=== PATIENT | male | born 1950 | race Caucasian/White ===

== ENCOUNTER → 2020-01-27 08:05 | Outpatient (BNVA) | payer MEDICARE, SELFPAY | PROVIDERS: PCP Nurse Practitioner Family; Referring Provider Nurse Practitioner Family; Visit Provider Anesthesiology Pain Medicine | DX: M47.812 Spondylosis without myelopathy or radiculopathy, cervical region (principal); M54.9 Dorsalgia, unspecified; M79.18 Myalgia, other site; Z79.891 Long term (current) use of opiate analgesic | CPT/HCPCS: 20553; 72040; 99204; J1030; J3490 ==

== ENCOUNTER 2020-01-27 10:56 | Outpatient (CLI) | payer MEDICARE, SELFPAY ==
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
== END 2020-01-27 10:57 | disposition home or self-care (01) ==
LOC: RADWPI 10:59
PROVIDERS: PCP Nurse Practitioner Family; Visit Provider Anesthesiology Pain Medicine
DX: M47.812 Spondylosis without myelopathy or radiculopathy, cervical region (principal)
CPT/HCPCS: 72040

== ENCOUNTER 2020-01-29 04:55 | Emergency (ER) | payer MEDICARE, SELFPAY ==
[2020-01-29 05:07] VITALS: BP 131/84; PULSE 84; RESP 16; TEMP 36.2; O2SAT 99; BMI 21.1
--- NOTE | 2020-01-29 05:34 | CTR_ITS ---
PROCEDURE INFORMATION: Exam: CT Head Without Contrast Exam date and time: 01/29/2020 5:37 AM Age: 69 years old Clinical indication: Patient HX: C/O dizziness x 3 days after having trigger point injections in neck. ; Additional info: Dizzy TECHNIQUE: Imaging protocol: Computed tomography of the head without contrast. Radiation optimization: All CT scans at this facility use at least one of these dose optimization techniques: automated exposure control; mA and/or kV adjustment per patient size (includes targeted exams where dose is matched to clinical indication); or iterative reconstruction. COMPARISON: No relevant prior studies available. FINDINGS: Brain: There is mild diffuse cerebral atrophy. Patchy areas of hypoattenuation are seen in the deep white matter of the cerebral hemispheres bilaterally compatible with deep white matter microvascular disease. Total DLP: 827.21 mGy-cm Ventricles: Normal. No ventriculomegaly. Bones/joints: Unremarkable. No acute fracture. Sinuses: Visualized sinuses are unremarkable. No fluid levels. Mastoid air cells: Visualized mastoid air cells are well aerated. Soft tissues: Unremarkable. CT/CT head wo con* [id number] IMPRESSION: There are no acute intracranial findings. Radiation Dose CTDIVOL = (mGy): DLP = 827.21 (mGy-cm)
--- NOTE | 2020-01-29 05:35 | ECG_ITS ---
Measurements Intervals [place] Rate: 77 P: 84 [place]: 172 QRS: 79 QRSD: 108 T: 23 QT: 377 QTc: 429 SINUS RHYTHM NONSPECIFIC T-WAVE ABNORMALITY No previous ECG available for comparison Electronically Signed On 01-29-2020 21:00:22 CDT by Berto Martins M.D. [id number] f
--- NOTE | 2020-01-29 05:48 | ED_ITS ---
HPI - Dizziness General: Chief Complaint: Dizziness Stated Complaint: dizziness Time Seen by Provider: 01/29/20 05:18 History of Present Illness: HPI Narrative: 69-year-old gentleman with a history of coronary disease. He presents with dizziness. He states that he got trigger point injections 2 days ago at the pain clinic, and has been dizzy on and off since then. It seemed to worsen yesterday and this morning he was quite dizzy, so much so that he stumbled a bit around the house. He states that the vertiginous type dizziness with room spinning type sensation. He does give a history of feeling lightheaded. He denies any chest pain or shortness of breath. He also states that he ran out of his tramadol on , and does not want to go back on it. MD elicited complaint: dizziness, lightheadedness and near syncope Onset (ago): day(s) (3) Timing: sudden onset Severity: moderate Description: room spinning , lightheadedness and off-balance Context: change in medication History of similar symptoms: No Relieving factors: nothing Associated symptoms: Denies change in hearing, chest pain, chills or palpitations Associated neuro symptoms: Deny confusion, difficulty speaking, dysphagia, diplopia, extremity weakness, facial numbness, facial weakness, numbness in extremities or visual changes Review of Systems Const: Denies: fever(s) or chills Eyes: Denies: change in vision ENMT: Denies: swelling of lips/tongue, change in hearing or epistaxis Card: Denies: chest pain, palpitations or irregular heart rhythm Resp: Denies: dyspnea, productive cough, non-productive cough or wheezing GI: Denies: dysphagia : Denies: difficulty urinating or dysuria Musc: Denies: neck pain, back pain or joint redness Skin/Breast: Denies: rash Neuro: Denies: numbness in extremities or confusion Psych: Denies: anxiety PFSH ED PFSH: Medical History (Updated 01/27/20 @ 09:05 by Kevin Botello MD) CAD (coronary artery disease) 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 Erectile dysfunction Non-ST elevation [place] (NSTEMI) Surgical History Hx of left inguinal hernia repair Family History Mother Dementia Hypertension CAD (coronary artery disease) Denies family history of Diabetes Clotting disorder Hyperlipidemia Psychiatric illness Chronic kidney disease (CKD) Suicide Anesthesia complication Bleeding disorder Family history of premature coronary artery disease Lung disease Cancer Stroke Social History Smoking and tobacco status: former smoker Alcohol intake: never Physical Exam Const: GENERAL APPEARANCE: well developed ORIENTATION/CONSCIOUSNESS: Yes oriented to person, Yes oriented to place and Yes oriented to time HENMT: COMMON NORMALS: normocephalic, external ears normal and Normal external nose present HEAD & SCALP: normocephalic FACE & SINUS: normal facial exam NOSE: Normal external nose present and No nasal discharge present EXTERNAL EAR: Yes external ears normal MOUTH: tongue normal THROAT: posterior oropharynx normal; no peritonsillar mass Eye: COMMON NORMALS: Equal, round and reactive pupils present, EOMs intact bilaterally and conjunctivae normal EYELID: eyelids normal CONJUNCTIVA: Yes conjunctivae normal PUPIL: Yes Equal, round and reactive pupils present Neck/C-Spine: COMMON NORMALS: no meningeal signs GENERAL: No tracheal deviation Chest: COMMONS NORMALS: normal inspection of the chest CHEST: No tenderness Resp: COMMON NORMALS: clear to auscultation bilaterally EFFORT & INSPECTION: No tachypneic, No respiratory distress, No retractions, No uses accessory muscles and No tracheal deviation AUSCULTATION: clear to auscultation bilaterally, no rhonchi, no wheezes and lung sounds not diminished Cardio: COMMON NORMALS: regular rate and regular rhythm RATE: regular rate RHYTHM: regular rhythm HEART SOUNDS: no murmurs PERIPHERAL PULSES: radial pulses present GI: INSPECTION: No abdominal distension AUSCULTATION: No Hyperactive bowel sounds present and No Hypoactive bowel sounds present PALPATION: No Guarding due to palpation present (GI) and No Rigid due to palpation PERCUSSION: no dullness to percussion and no tympanic to percussion Neuro: SENSORIUM/ORIENTATION: Yes oriented to person, Yes oriented to place and Yes oriented to time MENINGEAL SIGNS: Yes no meningeal signs CRANIAL NERVES: Yes CN normal except as noted COORDINATION/BALANCE: lczryx-zr-blae test normal and igyp-lf-fubb test normal SPEECH: speech normal SENSORY EXAM: Yes extremities MOTOR EXAM: 5/5 motor strength present throughout and Pronator motor function not present COORDINATION: nyjynz-ef-nnpf test normal and pvzv-tk-egyt test normal Psych: COMMON NORMALS: mental status grossly normal Skin: COMMON NORMALS: no rashes or lesions noted GENERAL SKIN EXAM: no rashes or lesions noted Course Vital Signs: Vital signs: Vital Signs Temperature 97.1 F L 01/29/20 05:07 Pulse Rate 84 01/29/20 05:07 Respiratory Rate 16 01/29/20 05:07 Blood Pressure 131/84 01/29/20 05:07 Pulse Oximetry 99 01/29/20 05:07 MDM - Dizziness MDM Narrative: Medical decision making narrative: 69-year-old gentleman with a history of coronary disease. He is dizzy. Vertiginous type of dizziness. CT of the head is scheduled. Labs are pending. His EKG shows a sinus rhythm with a normal axis and no real acute ST changes. He never had chest pain. Orthostatics are pending as well. Were giving him some fluid. He has multiple reasons for dizziness including the trigger point injections a couple of days ago and coming off the tramadol he will be checked out to Dr. Mayo at shift change to follow-up on labs and imaging. Discharge Plan Discharge Prescriptions: No Action aspirin [Adult Aspirin Regimen] 81 mg tablet,delayed release (DR/EC) 81 mg PO DAILY RF: 0 nitroglycerin [Nitrostat] 0.4 mg tablet, sublingual 0.4 mg SUBLINGUAL Q5M PRNRF: 0 levothyroxine 100 mcg capsule 100 mcg PO DAILY RF: 0 ibuprofen 200 mg tablet 200 mg PO Q6H PRNRF: 0 isosorbide mononitrate 10 mg tablet 10 mg PO BID RF: 0 tamsulosin 0.4 mg capsule 0.4 mg PO DAILY RF: 0 simvastatin 80 mg tablet 80 mg PO DAILY RF: 0 tramadol 50 mg tablet 50 mg PO BID PRNRF: 0 tizanidine 4 mg tablet 4 mg PO BID PRN (Reason: muscle spasticity) Qty: 60 RF: 0 clopidogrel [Plavix] 75 mg tablet 75 mg PO QDAY 90 Days Qty: 90 RF: 3 metoprolol tartrate 25 mg tablet 12.5 mg PO BID 90 Days Qty: 90 RF: 3 Coding Level of Care Code ED 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
[2020-01-29] MEDS: sodium chloride 0.9% 1,000 ML 999 ML IV (05:50)
[2020-01-29 05:55] VITALS: BP 120/78; BP 127/75; BP 129/73; PULSE 72; PULSE 77; PULSE 79
[2020-01-29] MEDS: ondansetron 2 mg/ML SDV 2 mL 4 MG IVP (06:00)
[2020-01-29 06:17] LABS: Add Urine Microscopic? NO
[2020-01-29 06:22] LABS: Basophils # 0.1 10^3/uL (0.0-0.1); Basophils % 0.7 %; Eosinophils # 0.2 10^3/uL (0.0-0.8); Eosinophils % 2.7 %; Hematocrit 46.4 % (42.0-52.0); Hemoglobin 14.9 g/dL (11.7-16.6); Lymphocytes # 2.5 10^3/uL (0.8-4.8); Lymphocytes % 34.3 %; Mean Corpuscular HGB Conc 32.1 g/dL (30.0-36.0); Mean Corpuscular Hemoglobin 29.7 pg (28.0-34.0); Mean Corpuscular Volume 92.6 fL (80-94); Monocytes # 0.6 10^3/uL (0.2-0.9); Monocytes % 8.8 %; Neutrophils # 3.8 10^3/uL (1.8-7.7); Neutrophils % 53.4 %; Nucleated Red Blood Cells % 0 %; Platelet Count 187 10^3/cmm (130-400); Red Blood Count 5.01 10^6/uL (4.1-5.3); White Blood Count 7.1 10^3/uL (4.0-10.0)
[2020-01-29 06:24] LABS: Blood Urine Neg (Negative); Glucose Urine UA Norm (Normal); Ketones Urine Negative (Negative); Nitrate Urine Negative (Negative); Protein Urine Neg (Negative); Urine Appearance Clear (CLEAR); Urine Color Yellow (Yellow); pH Urine 6.5 (5-7)
[2020-01-29 06:25] LABS: Bilirubin Urine Neg (NEGATIVE); Leukocyte Esterase Urine Negative (Negative); Urobilinogen Urine Norm (Negative)
[2020-01-29 06:29] LABS: INR 0.95 (0.8-1.2); Partial Thromboplastin Time 30.9 SECONDS (23.9-36.7)
[2020-01-29 06:34] LABS: Alanine Aminotransferase 21 U/L (0-41); Albumin Level 4.9 g/dL (3.5-5.2); Alkaline Phosphatase 136 IU/L (40-130); Anion Gap 15.5 (5-19); Aspartate Amino Transferase 21 U/L (0-40); Blood Urea Nitrogen 12 mg/dL (8-23); Calcium 10.2 mg/dL (8.5-10.5); Carbon Dioxide 28 mmol/L (22-29); Chloride 103 mmol/L (98-107); Creatine Phosphokinase 71 U/L (39-308); Creatinine Clr Calc Pharmacy 96.2125; Globulin 2.9 g/dL (1.3-4.6); Glomerular Filtration Rate 112.1 mL/min (90-130); Glucose 89 mg/dL (65-115); Magnesium 2.6 mg/dL (1.7-2.3); Osmolality Calculated 290 mOsm/kg (285-295); Potassium 4.5 mmol/L (3.5-5.1); Sodium 142 mmol/L (136-145); Total Protein 7.8 g/dL (6.6-8.7)
[2020-01-29 06:36] LABS: Troponin(5th) Baseline 7 ng/L (0-15)
--- NOTE | 2020-01-29 06:55 | PC.NURSE ---
Report received from [facility] at this time.
[2020-01-29 07:01] VITALS: BP 126/73; PULSE 75; RESP 18; O2SAT 98
--- NOTE | 2020-01-29 07:01 | PC.NURSE ---
Patient called out using his call light. Rounded on patient. Patient request a cup of black coffee. Physician notified at this time.
--- NOTE | 2020-01-29 07:13 | PC.NURSE ---
Per physician patient is okay to have a drink. Glass of black coffee brought to the patient at this time. Patient has no other needs. Will continue to monitor patient.
--- NOTE | 2020-01-29 07:35 | ECG_ITS ---
Measurements Intervals [place] Rate: 72 P: 79 [place]: 166 QRS: 74 QRSD: 100 T: 22 QT: 400 QTc: 439 SINUS RHYTHM POSSIBLE INFERIOR MYOCARDIAL INFARCTION [30 ms Q WAVE IN II/aVF], PROBABLY OLD [place] WITH POSTERIOR EXTENSION [PROMINENT R WAVE IN V1 No previous ECG available for comparison Electronically Signed On 01-29-2020 21:04:29 CDT by Berto Martins M.D. [id number] f
[2020-01-29 08:02] VITALS: BP 113/77; PULSE 72; RESP 16; O2SAT 99
[2020-01-29 08:17] LABS: Troponin 5 2HR 6.52 ng/L (0-15)
[2020-01-29 08:26] LABS: Troponin 5 2HR Delta -0.48 ABS# (0-10)
[2020-01-29 08:42] VITALS: BP 133/79; PULSE 84; RESP 16; O2SAT 98
== END 2020-01-29 08:42 | disposition home or self-care (01) ==
PROVIDERS: Emergency Provider Emergency Medicine; PCP Nurse Practitioner Family
DX: R42 Dizziness and giddiness (principal); Z79.02 Long term (current) use of antithrombotics/antiplatelets; Z79.82 Long term (current) use of aspirin; I25.10 Atherosclerotic heart disease of native coronary artery without angina pectoris; E78.5 Hyperlipidemia, unspecified; I25.2 Old myocardial infarction; Z87.891 Personal history of nicotine dependence; R55 Syncope and collapse
CPT/HCPCS: 12345; 36415; 70450; 80053; 81003; 82550; 83735; 84100; 84484; 85025; 85610; 85730; 93005; 96360; 96361; 96374; 96375; 99284; J2405; J7030

== ENCOUNTER 2020-02-16 14:05 | Outpatient (RCR) | payer MEDICARE, SELFPAY | END 2020-03-16 23:59 | disposition home or self-care (01) | LOC: SPT 14:05 | PROVIDERS: PCP Nurse Practitioner Family; Referring Provider Nurse Practitioner Family; Visit Provider Nurse Practitioner Family | DX: M54.6 Pain in thoracic spine (principal) | CPT/HCPCS: 97110; 97161 ==

== ENCOUNTER 2020-04-14 22:22 | Emergency (ER) | payer MEDICARE, SELFPAY ==
[2020-04-14 22:25] VITALS: BP 124/75; PULSE 76; RESP 17; TEMP 36.4; O2SAT 95; BMI 22.1
--- NOTE | 2020-04-14 22:40 | XR_ITS ---
WS: [id number] PORTABLE CHEST HISTORY: chest pain COMPARISON: 12/25/2018 Hyperinflated lungs with mild biapical pleural thickening. No pneumonia. Normal vasculature. No pleur al effusion or pneumothorax. Cardiac size: Normal. Mediastinum/Aorta: Normal mediastinum. No osseous abnormality seen. XR/XR chest 1V portable [id number] IMPRESSION: Mild chronic emphysema with no pneumonia.
--- NOTE | 2020-04-14 22:40 | ECG_ITS ---
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 Measurements Intervals [place] Rate: 75 P: 67 [place]: 160 QRS: 63 QRSD: 109 T: 33 QT: 401 QTc: 449 Interpretive Statements SINUS RHYTHM POSSIBLE RIGHT VENTRICULAR CONDUCTION DELAY [RSR (QR) IN V1/V2] Compared to ECG 01/29/2020 08:00:37 Myocardial infarct finding no longer present Electronically Signed On 04-15-2020 23:59:23 CDT by Berto Martins M.D. [email or web address]/NU/[id number] f
--- NOTE | 2020-04-14 22:51 | ED_ITS ---
HPI - Chest Pain General: Chief Complaint: Chest Pain Stated Complaint: chest pain/ tingling tightness r arm Time Seen by Provider: 04/14/20 22:40 Source: patient Mode of arrival: ambulatory Limitations: no limitations History of Present Illness: HPI narrative: Patient comes in today with chest pain that started around 8:00 this evening. Patient does have a history of an [place] in April 2019. Patient reports taking 1 nitro with improvement in pain but continues to have some left arm tightness and discomfort. Patient did not take any aspirin. Review of Systems General: Reports: 10 or more systems reviewed and unremarkable except in HPI and below Card: Reports: chest pain [facility] ED PFSH: Medical History (Updated 04/15/20 @ 01:16 by MAYTE Dubose) CAD (coronary artery disease) 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 Erectile dysfunction Non-ST elevation [place] (NSTEMI) Surgical History Hx of left inguinal hernia repair Family History Mother Dementia Hypertension CAD (coronary artery disease) Denies family history of Diabetes Clotting disorder Hyperlipidemia Psychiatric illness Chronic kidney disease (CKD) Suicide Anesthesia complication Bleeding disorder Family history of premature coronary artery disease Lung disease Cancer Stroke Social History Smoking and tobacco status: former smoker Alcohol intake: never Physical Exam Const: COMMON NORMALS: no acute distress and patient oriented x3 GENERAL APPEARANCE: cooperative HENMT: COMMON NORMALS: normocephalic and Normal external nose present HEAD & SCALP: normal to inspection and normocephalic NOSE: Normal external nose present MOUTH: Normal oral and palatal mucosa present Eye: GENERAL EYE: appearance normal, both eyes and all related structures Neck/C-Spine: COMMON NORMALS: full ROM Chest: COMMONS NORMALS: normal inspection of the chest Resp: COMMON NORMALS: normal respiratory effort EFFORT & INSPECTION: Yes able to speak in complete sentences Cardio: COMMON NORMALS: regular rate and regular rhythm RATE: regular rate RHYTHM: regular rhythm GI: COMMON NORMALS: non-tender Back/Pelvis: COMMON NORMALS: thoracic and lumbar spine normal to inspection Extremity: COMMON NORMALS: normal to inspection Neuro: COMMON NORMALS: patient oriented x3 and moves all extremities Psych: COMMON NORMALS: mental status grossly normal and cooperative Skin: COMMON NORMALS: no rashes or lesions noted GENERAL SKIN EXAM: no rashes or lesions noted Course ED course: 2345, troponin negative at this time. waiting on second result. HEART score 6, wjw 0020, patient denies further chest pain. wjw Vital Signs: Vital signs: Vital Signs Temperature 97.5 F L 04/14/20 22:25 Pulse Rate 76 04/14/20 22:25 Respiratory Rate 18 04/14/20 23:19 Blood Pressure 131/64 04/15/20 01:12 Pulse Oximetry 95 04/14/20 22:25 MDM - Chest Pain MDM Narrative: Medical decision making narrative: Patient reports an episode of chest discomfort in which he took nitro with relief. Exam notes respirations are even lungs are clear to auscultation. Skin is warm and dry. Vital signs are normal differential diagnosis includes ACS, stable angina, atypical chest pain. Laboratory values were normal. Troponin did not show change after 2 hours. EKG showed no changes after 2 hours. Chest x-ray with emphysema. Reviewed exam with patient with recommendations for treatment and follow-up. Patient reported understanding and agreed to plan and felt comfortable going home. Lab Data: Labs: Lab Results 04/14/20 04/14/20 04/14/20 Range/Units 22:43 22:43 22:43 WBC 6.0 (4.0-10.0) 10^3/ uL RBC 4.65 (4.1-5.3) 10^6/u L Hgb 13.9 (11.7-16.6) g/dL Hct 43.4 (42.0-52.0) % MCV 93.3 (80-94) fL MCH 29.9 (28.0-34.0) pg MCHC 32.0 (30.0-36.0) g/dL RDW 13.4 (12.1-15.1) % Plt Count 204 (130-400) 10^3/c mm MPV 10.3 (7.4-10.4) fL Neut % (Auto) 42.1 % Lymph % (Auto) 41.1 % [place] % (Auto) 9.7 % Eos % (Auto) 5.7 % Baso % (Auto) 1.2 % Neut # (Auto) 2.51 (1.8-7.7) 10^3/u L Lymph # (Auto) 2.5 (0.8-4.8) 10^3/u L [place] # (Auto) 0.6 (0.2-0.9) 10^3/u L Eos # (Auto) 0.3 (0.0-0.8) 10^3/u L Baso # (Auto) 0.1 (0.0-0.1) 10^3/u L Nucleated RBC % (a uto) 0 % Nucleated RBCs # 0.0 /100WBC PT 12.30 (12.1-14.9) SECO NDS INR 0.89 (0.8-1.2) APTT 29.7 (23.9-36.7) SECO NDS Sodium 140 (136-145) mmol/L Potassium 4.0 (3.5-5.1) mmol/L Chloride 105 (98-107) mmol/L Carbon Dioxide 26 (22-29) mmol/L Anion Gap 13.0 (5-19) BUN 17 (8-23) mg/dL Creatinine 0.8 (0.7-1.2) mg/dL GFR Calculation 96.1 (90-130) mL/min Glucose 121 H (65-115) mg/dL Calculated Osmolal ity 288 (285-295) mOsm/k g Calcium 8.7 (8.5-10.5) mg/dL Total Bilirubin 1.0 (0.15-1.2) mg/dL AST 22 (0-40) U/L ALT 32 (0-41) U/L Alkaline Phosphata se 88 (40-130) IU/L Troponin T Baselin e (0-15) ng/L Troponin T 120 Min inupiat (0-15) ng/L NT-Pro-B Natriuret Pep 91 (0-125) pg/mL Total Protein 6.9 (6.6-8.7) g/dL Albumin 4.4 (3.5-5.2) g/dL Globulin 2.5 (1.3-4.6) g/dL Lipase 45 (13-60) U/L 04/14/20 04/15/20 Range/Units 22:43 00:49 WBC (4.0-10.0) 10^3/ uL RBC (4.1-5.3) 10^6/u L Hgb (11.7-16.6) g/dL Hct (42.0-52.0) % MCV (80-94) fL MCH (28.0-34.0) pg MCHC (30.0-36.0) g/dL RDW (12.1-15.1) % Plt Count (130-400) 10^3/c mm MPV (7.4-10.4) fL Neut % (Auto) % Lymph % (Auto) % [place] % (Auto) % Eos % (Auto) % Baso % (Auto) % Neut # (Auto) (1.8-7.7) 10^3/u L Lymph # (Auto) (0.8-4.8) 10^3/u L [place] # (Auto) (0.2-0.9) 10^3/u L Eos # (Auto) (0.0-0.8) 10^3/u L Baso # (Auto) (0.0-0.1) 10^3/u L Nucleated RBC % (a uto) % Nucleated RBCs # /100WBC PT (12.1-14.9) SECO NDS INR (0.8-1.2) APTT (23.9-36.7) SECO NDS Sodium (136-145) mmol/L Potassium (3.5-5.1) mmol/L Chloride (98-107) mmol/L Carbon Dioxide (22-29) mmol/L Anion Gap (5-19) BUN (8-23) mg/dL Creatinine (0.7-1.2) mg/dL GFR Calculation (90-130) mL/min Glucose (65-115) mg/dL Calculated Osmolal ity (285-295) mOsm/k g Calcium (8.5-10.5) mg/dL Total Bilirubin (0.15-1.2) mg/dL AST (0-40) U/L ALT (0-41) U/L Alkaline Phosphata se (40-130) IU/L Troponin T Baselin e 7 (0-15) ng/L Troponin T 120 Min in[place] 6.67 (0-15) ng/L NT-Pro-B Natriuret Pep (0-125) pg/mL Total Protein (6.6-8.7) g/dL Albumin (3.5-5.2) g/dL Globulin (1.3-4.6) g/dL Lipase (13-60) U/L EKG Data^: EKG 1: Attestation: I personally reviewed and interpreted this EKG as follows: (2235, sinus rhythm rate of 75 bpm regular, no obvious ST elevation, no ectopy noted.) Discharge Plan Discharge Patient Disposition: Home Clinical Impression: Stable angina Condition: Stable Prescriptions: No Action aspirin [Adult Aspirin Regimen] 81 mg tablet,delayed release (DR/EC) 81 mg PO DAILY RF: 0 nitroglycerin [Nitrostat] 0.4 mg tablet, sublingual 0.4 mg SUBLINGUAL Q5M PRNRF: 0 levothyroxine 100 mcg capsule 100 mcg PO DAILY RF: 0 ibuprofen 200 mg tablet 200 mg PO Q6H PRNRF: 0 isosorbide mononitrate 10 mg tablet 10 mg PO BID RF: 0 tamsulosin 0.4 mg capsule 0.4 mg PO DAILY RF: 0 simvastatin 80 mg tablet 80 mg PO DAILY RF: 0 tizanidine 4 mg tablet 4 mg PO BID PRN (Reason: muscle spasticity) Qty: 60 RF: 0 clopidogrel [Plavix] 75 mg tablet 75 mg PO QDAY 90 Days Qty: 90 RF: 3 metoprolol tartrate 25 mg tablet 12.5 mg PO BID 90 Days Qty: 90 RF: 3 meclizine 25 mg tablet 25 mg PO QID PRN (Reason: dizziness) Qty: 30 RF: 0 Discharge Orders: Discharge Order (Routine); Ordered 04/15/20 Ordered By: Lalito Wheat Referrals: Andres Dickens NP [Primary Care Provider] - Discharge Diet: Usual diet Discharge Activity: Increase activity as tolerated Patient Instructions: Angina (ED) Activity Restrictions/Additional Instructions: Continue with routine care. Use follow-up as needed for chest pain. Follow-up with primary care. Follow-up with machine quilt stuffer for further concerns. Return to the emergency department for new concerns. Coding Level of Care Code ED Access Specialist for Wilian Fwd Exam Comprehensive
[2020-04-14 23:01] LABS: Basophils # 0.1 10^3/uL (0.0-0.1); Basophils % 1.2 %; Eosinophils # 0.3 10^3/uL (0.0-0.8); Eosinophils % 5.7 %; Hematocrit 43.4 % (42.0-52.0); Hemoglobin 13.9 g/dL (11.7-16.6); Lymphocytes # 2.5 10^3/uL (0.8-4.8); Lymphocytes % 41.1 %; Mean Corpuscular Hemoglobin 29.9 pg (28.0-34.0); Mean Corpuscular Volume 93.3 fL (80-94); Mean Platelet Volume 10.3 fL (7.4-10.4); Monocytes # 0.6 10^3/uL (0.2-0.9); Monocytes % 9.7 %; Neutrophils # 2.51 10^3/uL (1.8-7.7); Neutrophils % 42.1 %; Nucleated Red Blood Cells % 0 %; Platelet Count 204 10^3/cmm (130-400); Red Blood Count 4.65 10^6/uL (4.1-5.3); Red Cell Distribution Width 13.4 % (12.1-15.1)
[2020-04-14 23:12] LABS: INR 0.89 (0.8-1.2)
[2020-04-14 23:13] LABS: Partial Thromboplastin Time 29.7 SECONDS (23.9-36.7)
[2020-04-14] MEDS: aspirin 81 mg Chew Tablet 324 MG PO (23:15)
[2020-04-14 23:19] VITALS: BP 131/60; RESP 18
[2020-04-14 23:20] LABS: Troponin(5th) Baseline 7 ng/L (0-15)
[2020-04-14 23:42] LABS: Alanine Aminotransferase 32 U/L (0-41); Albumin Level 4.4 g/dL (3.5-5.2); Alkaline Phosphatase 88 IU/L (40-130); Aspartate Amino Transferase 22 U/L (0-40); Blood Urea Nitrogen 17 mg/dL (8-23); Calcium 8.7 mg/dL (8.5-10.5); Carbon Dioxide 26 mmol/L (22-29); Chloride 105 mmol/L (98-107); Globulin 2.5 g/dL (1.3-4.6); Glomerular Filtration Rate 96.1 mL/min (90-130); Glucose 121 mg/dL (65-115); Lipase 45 U/L (13-60); NT Pro B Type Natriuretic Pept 91 pg/mL (0-125); Osmolality Calculated 288 mOsm/kg (285-295); Sodium 140 mmol/L (136-145); Total Protein 6.9 g/dL (6.6-8.7)
--- NOTE | 2020-04-15 00:40 | ECG_ITS ---
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 Measurements Intervals [place] Rate: 60 P: 64 [place]: 171 QRS: 56 QRSD: 102 T: 38 QT: 421 QTc: 423 Interpretive Statements SINUS RHYTHM POSSIBLE RIGHT VENTRICULAR CONDUCTION DELAY [RSR (QR) IN V1/V2] Compared to ECG 04/14/2020 22:32:37 No significant changes Electronically Signed On 04-16-2020 0:26:38 CDT by Berto Martins M.D. [email or web address]/store/[id number]
--- NOTE | 2020-04-15 01:08 | PC.NURSE ---
EKG done at 0110 and shown to ER doctor
[2020-04-15 01:10] LABS: Troponin 5 2HR 6.67 ng/L (0-15)
[2020-04-15 01:12] VITALS: BP 131/64
[2020-04-15 01:17] LABS: Troponin 5 2HR Delta -0.33 ABS# (0-10)
[2020-04-15 01:29] VITALS: BP 134/84
== END 2020-04-15 01:30 | disposition home or self-care (01) ==
PROVIDERS: Emergency Provider Nurse Practitioner Family; PCP Nurse Practitioner Family
DX: I25.118 Atherosclerotic heart disease of native coronary artery with other forms of angina pectoris (principal); Z79.82 Long term (current) use of aspirin; Z79.02 Long term (current) use of antithrombotics/antiplatelets; E78.5 Hyperlipidemia, unspecified; I25.2 Old myocardial infarction; Z87.891 Personal history of nicotine dependence
CPT/HCPCS: 12345; 36415; 71045; 80053; 83690; 83880; 84484; 85025; 85610; 85730; 93005; 99283; 99284

== ENCOUNTER 2020-04-17 16:04 | Emergency (ER) | payer MEDICARE, SELFPAY ==
[2020-04-17 16:07] VITALS: BP 151/93; PULSE 76; RESP 18; TEMP 36.6; O2SAT 97; BMI 22.3
--- NOTE | 2020-04-17 16:21 | ECG_ITS ---
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 Measurements Intervals [place] Rate: 73 P: 67 [place]: 165 QRS: 58 QRSD: 109 T: 28 QT: 396 QTc: 438 Interpretive Statements SINUS RHYTHM INCOMPLETE RIGHT BUNDLE BRANCH BLOCK NONSPECIFIC T-WAVE ABNORMALITY Compared to ECG 04/15/2020 01:08:47 Incomplete right bundle-branch block now present T-wave abnormality now present Electronically Signed On 04-17-2020 20:32:36 CDT by Cyn Ngo M.D. [email or web address] hospitalVendRx[facility].[employer]/store/NU/[id number] f
--- NOTE | 2020-04-17 17:36 | XRR_ITS ---
PROCEDURE INFORMATION: Exam: XR Chest, 1 View Exam date and time: 04/17/2020 6:26 PM Age: 69 years old Clinical indication: Type not specified; Patient HX: C/O chest pain x 3/4 days. Tingling down left arm TECHNIQUE: Imaging protocol: XR of the chest Views: 1 view. COMPARISON: CR XR chest 1V portable [id number] 04/14/2020 11:11 PM FINDINGS: Lungs: COPD, interstitial prominence, and chronic granulomatous disease. Pleural space: Biapical pleural thickening. Heart/Mediastinum: No cardiomegaly. Bones/joints: Osteopenia and degenerative change. When correlating with the previous study, no significant interval changes are present. XR/XR chest 1V portable [id number] IMPRESSION: Stable appearance of the chest, not significantly changed from 04/14/20.
--- NOTE | 2020-04-17 17:48 | W.ED.CHESTPA ---
HPI - Chest Pain General: Chief Complaint: Chest Pain Stated Complaint: cp Time Seen by Provider: 04/17/20 17:36 Source: patient Mode of arrival: ambulatory Limitations: no limitations History of Present Illness: HPI narrative: 69 yo male that states he has been having chest pain over the last 3-4 days. he states he also has tingling down his left arm. Patient states he is currently pain-free. Patient states he saw his PCP yesterday and is scheduled for a stress test. Patient denies any nausea or shortness of breath. MD complaint: chest pain Associated symptoms: Deny abdominal pain, dyspnea, fever(s), nausea or vomiting Review of Systems Const: Denies: fever(s), chills, body aches or change in appetite Eyes: Denies: blurry vision or eye discomfort ENMT: Denies: throat pain or dental pain Card: Reports: chest pain Resp: Denies: dyspnea GI: Denies: abdominal pain, nausea, vomiting or diarrhea : Denies: dysuria Musc: Denies: neck pain or back pain Skin/Breast: Denies: rash Neuro: Denies: headache(s) Psych: Denies: depression [place]/Lymph: Denies: easy bruising All/Imm: Denies: urticaria PFSH ED PFSH: Medical History CAD (coronary artery disease) 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 Erectile dysfunction Non-ST elevation [place] (NSTEMI) Surgical History Hx of left inguinal hernia repair Family History Mother Dementia Hypertension CAD (coronary artery disease) Denies family history of Diabetes Clotting disorder Hyperlipidemia Psychiatric illness Chronic kidney disease (CKD) Suicide Anesthesia complication Bleeding disorder Family history of premature coronary artery disease Lung disease Cancer Stroke Social History Smoking and tobacco status: former smoker Alcohol intake: never Substance/Drug Use: never Physical Exam Const: COMMON NORMALS: no acute distress, patient oriented x3 and healthy appearing HENMT: COMMON NORMALS: normocephalic and atraumatic HEAD & SCALP: normocephalic and atraumatic Eye: COMMON NORMALS: Equal, round and reactive pupils present and EOMs intact bilaterally PUPIL: Yes Equal, round and reactive pupils present Neck/C-Spine: COMMON NORMALS: full ROM and supple Chest: COMMONS NORMALS: normal inspection of the chest and normal palpation of entire chest wall Resp: COMMON NORMALS: normal respiratory effort, No retractions, No use of accessory muscles and clear to auscultation bilaterally AUSCULTATION: clear to auscultation bilaterally Cardio: COMMON NORMALS: regular rate, regular rhythm and No murmurs present (Cardio) RATE: regular rate RHYTHM: regular rhythm GI: COMMON NORMALS: Normal to inspection, nondistended, normoactive bowel sounds present, Soft to palpation, non-tender and no masses PALPATION: Yes Soft to palpation Extremity: COMMON NORMALS: normal to inspection and full ROM Neuro: COMMON NORMALS: patient oriented x3, moves all extremities and no focal motor deficits Psych: COMMON NORMALS: mental status grossly normal, Normal thought process present and cooperative THOUGHT PROCESS: Normal thought process present Skin: COMMON NORMALS: no rashes or lesions noted and no wounds GENERAL SKIN EXAM: no rashes or lesions noted Course Vital Signs: Vital signs: Vital Signs Temperature 97.8 F 04/17/20 16:07 Pulse Rate 76 04/17/20 16:07 Respiratory Rate 18 04/17/20 16:07 Blood Pressure 151/93 04/17/20 16:07 Pulse Oximetry 97 04/17/20 16:07 MDM - Chest Pain MDM Narrative: Medical decision making narrative: Patient presents here with chest pain is atypical in nature. Patient's initial repeat troponins here are negative along with EKGs. Patient's been pain-free here. He is to set up stress test with his PCP as planned. He is also follow-up with his bookmaker's clerk Dr. Hernandez and is to return if worsening. Patient understands and agrees to plan. Lab Data: Labs: Lab Results 04/17/20 04/17/20 04/17/20 Range/Units 17:48 17:48 17:48 WBC 6.0 (4.0-10.0) 10^3/ uL RBC 4.93 (4.1-5.3) 10^6/u L Hgb 14.7 (11.7-16.6) g/dL Hct 45.9 (42.0-52.0) % MCV 93.1 (80-94) fL MCH 29.8 (28.0-34.0) pg MCHC 32.0 (30.0-36.0) g/dL RDW 13.3 (12.1-15.1) % Plt Count 198 (130-400) 10^3/c mm MPV 10.2 (7.4-10.4) fL Neut % (Auto) 47.6 % Lymph % (Auto) 38.2 % [place] % (Auto) 9.5 % Eos % (Auto) 3.7 % Baso % (Auto) 0.8 % Neut # (Auto) 2.87 (1.8-7.7) 10^3/u L Lymph # (Auto) 2.3 (0.8-4.8) 10^3/u L [place] # (Auto) 0.6 (0.2-0.9) 10^3/u L Eos # (Auto) 0.2 (0.0-0.8) 10^3/u L Baso # (Auto) 0.1 (0.0-0.1) 10^3/u L Nucleated RBC % (a uto) 0 % Nucleated RBCs # 0.0 /100WBC Sodium 141 (136-145) mmol/L Potassium 4.2 (3.5-5.1) mmol/L Chloride 106 (98-107) mmol/L Carbon Dioxide 26 (22-29) mmol/L Anion Gap 13.2 (5-19) BUN 11 (8-23) mg/dL Creatinine 0.9 (0.7-1.2) mg/dL GFR Calculation 83.9 L (90-130) mL/min Glucose 96 (65-115) mg/dL Calculated Osmolal ity 288 (285-295) mOsm/k g Calcium 9.6 (8.5-10.5) mg/dL Total Bilirubin 1.1 (0.15-1.2) mg/dL AST 25 (0-40) U/L ALT 32 (0-41) U/L Alkaline Phosphata se 105 (40-130) IU/L Troponin T Baselin e 6 (0-15) ng/L Troponin T 120 Min [place] (0-15) ng/L Delta Troponin T (0-10) ABS# Total Protein 7.6 (6.6-8.7) g/dL Albumin 4.6 (3.5-5.2) g/dL Globulin 3.0 (1.3-4.6) g/dL 04/17/20 Range/Units 19:40 WBC (4.0-10.0) 10^3/ uL RBC (4.1-5.3) 10^6/u L Hgb (11.7-16.6) g/dL Hct (42.0-52.0) % MCV (80-94) fL MCH (28.0-34.0) pg MCHC (30.0-36.0) g/dL RDW (12.1-15.1) % Plt Count (130-400) 10^3/c mm MPV (7.4-10.4) fL Neut % (Auto) % Lymph % (Auto) % [place] % (Auto) % Eos % (Auto) % Baso % (Auto) % Neut # (Auto) (1.8-7.7) 10^3/u L Lymph # (Auto) (0.8-4.8) 10^3/u L [place] # (Auto) (0.2-0.9) 10^3/u L Eos # (Auto) (0.0-0.8) 10^3/u L Baso # (Auto) (0.0-0.1) 10^3/u L Nucleated RBC % (a uto) % Nucleated RBCs # /100WBC Sodium (136-145) mmol/L Potassium (3.5-5.1) mmol/L Chloride (98-107) mmol/L Carbon Dioxide (22-29) mmol/L Anion Gap (5-19) BUN (8-23) mg/dL Creatinine (0.7-1.2) mg/dL GFR Calculation (90-130) mL/min Glucose (65-115) mg/dL Calculated Osmolal ity (285-295) mOsm/k g Calcium (8.5-10.5) mg/dL Total Bilirubin (0.15-1.2) mg/dL AST (0-40) U/L ALT (0-41) U/L Alkaline Phosphata se (40-130) IU/L Troponin T Baselin e (0-15) ng/L Troponin T 120 Min [place] 6.00 (0-15) ng/L Delta Troponin T 0 (0-10) ABS# Total Protein (6.6-8.7) g/dL Albumin (3.5-5.2) g/dL Globulin (1.3-4.6) g/dL Imaging Data^: CXR: Attestation: I personally reviewed and interpreted this imaging study as follows: My impression: no acute abnormality EKG Data^: EKG 1: Attestation: I personally reviewed and interpreted this EKG as follows: EKG interpretation date: 04/17/20 EKG interpretation time: 16:17 Interpretation: nsr hr [address] or t wave abnormalities qrs 109 qtc 422 Discharge Plan Discharge Patient Disposition: Home Clinical Impression: Chest pain Qualifiers: Chest pain type: unspecified Qualified Code(s): R07.9 - Chest pain, unspecified Condition: Stable Prescriptions: No Action aspirin [Adult Aspirin Regimen] 81 mg tablet,delayed release (DR/EC) 81 mg PO DAILY RF: 0 nitroglycerin [Nitrostat] 0.4 mg tablet, sublingual 0.4 mg SUBLINGUAL Q5M PRN (Reason: CHEST PAINS) RF: 0 levothyroxine 100 mcg capsule 100 mcg PO DAILY RF: 0 ibuprofen 200 mg tablet 200 mg PO Q6H PRN (Reason: Pain) RF: 0 isosorbide mononitrate 10 mg tablet 10 mg PO BID RF: 0 tamsulosin 0.4 mg capsule 0.4 mg PO DAILY RF: 0 simvastatin 80 mg tablet 80 mg PO DAILY RF: 0 tizanidine 4 mg tablet 4 mg PO BID PRN (Reason: muscle spasticity) Qty: 60 RF: 0 clopidogrel [Plavix] 75 mg tablet 75 mg PO QDAY 90 Days Qty: 90 RF: 3 metoprolol tartrate 25 mg tablet 12.5 mg PO BID 90 Days Qty: 90 RF: 3 meclizine 25 mg tablet 25 mg PO QID PRN (Reason: dizziness) Qty: 30 RF: 0 Multi Vitamin 9 mg iron/15 mL Liquid 9 mg PO DAILY RF: 0 Discharge Orders: Discharge Order (Routine); Ordered 04/17/20 Ordered By: Esperanza Whitt Referrals: Andres Dickens NP [Primary Care Provider] - 1-3 days Discharge Diet: Advance as tolerated Discharge Activity: Resume usual activity Patient Instructions: Chest Pain (ED) Coding Level of Care Code ED Agricultural Real Estate Agent for Chg Fwd Exam Comprehensive
[2020-04-17 18:13] LABS: Troponin(5th) Baseline 6 ng/L (0-15)
[2020-04-17 18:18] LABS: Basophils # 0.1 10^3/uL (0.0-0.1); Basophils % 0.8 %; Eosinophils # 0.2 10^3/uL (0.0-0.8); Eosinophils % 3.7 %; Hematocrit 45.9 % (42.0-52.0); Hemoglobin 14.7 g/dL (11.7-16.6); Lymphocytes # 2.3 10^3/uL (0.8-4.8); Lymphocytes % 38.2 %; Mean Corpuscular Hemoglobin 29.8 pg (28.0-34.0); Mean Corpuscular Volume 93.1 fL (80-94); Mean Platelet Volume 10.2 fL (7.4-10.4); Monocytes # 0.6 10^3/uL (0.2-0.9); Monocytes % 9.5 %; Neutrophils # 2.87 10^3/uL (1.8-7.7); Neutrophils % 47.6 %; Nucleated Red Blood Cells % 0 %; Platelet Count 198 10^3/cmm (130-400); Red Blood Count 4.93 10^6/uL (4.1-5.3); Red Cell Distribution Width 13.3 % (12.1-15.1)
[2020-04-17 18:58] LABS: Alanine Aminotransferase 32 U/L (0-41); Albumin Level 4.6 g/dL (3.5-5.2); Alkaline Phosphatase 105 IU/L (40-130); Anion Gap 13.2 (5-19); Aspartate Amino Transferase 25 U/L (0-40); Blood Urea Nitrogen 11 mg/dL (8-23); Calcium 9.6 mg/dL (8.5-10.5); Carbon Dioxide 26 mmol/L (22-29); Chloride 106 mmol/L (98-107); Glomerular Filtration Rate 83.9 mL/min (90-130); Glucose 96 mg/dL (65-115); Osmolality Calculated 288 mOsm/kg (285-295); Potassium 4.2 mmol/L (3.5-5.1); Sodium 141 mmol/L (136-145); Total Bilirubin 1.1 mg/dL (0.15-1.2); Total Protein 7.6 g/dL (6.6-8.7)
[2020-04-17 20:03] LABS: Troponin 5 2HR Delta 0 ABS# (0-10)
[2020-04-17 20:20] VITALS: BP 127/82; PULSE 76; RESP 16; O2SAT 93
--- NOTE | 2020-04-18 10:56 | DCPLANNER ---
wildlife manager had message to schedule a follow up appointment for patient with [facility]. wildlife manager called [facility], spoke with Linda, a follow up appointment was scheduled for , April 26, 2020 at 9:45 with LEAD APPLICATION ARCHITECT, Lisa Bertrand. wildlife manager called patient and informed patient of the scheduled appointment. Patient stated that he would attend the appointment.
--- NOTE | 2020-05-18 11:26 | DCPLANNER ---
Patient had a follow up appointment scheduled for 04.26.20 with [facility] - patient did attend appointment.
== END 2020-04-17 20:24 | disposition home or self-care (01) ==
PROVIDERS: Family Medicine; Emergency Provider Emergency Medicine; PCP Nurse Practitioner Family
DX: R07.9 Chest pain, unspecified (principal); Z79.82 Long term (current) use of aspirin; Z79.02 Long term (current) use of antithrombotics/antiplatelets; I25.10 Atherosclerotic heart disease of native coronary artery without angina pectoris; E78.5 Hyperlipidemia, unspecified; I25.2 Old myocardial infarction; Z87.891 Personal history of nicotine dependence
CPT/HCPCS: 12345; 36415; 71045; 80053; 84484; 85025; 93005; 99281; 99284

== ENCOUNTER 2020-04-19 09:29 | Observation (INO) | payer MEDICARE, SELFPAY ==
[2020-04-19] VITALS (12 sets, daily range): BP systolic 100–128; BP diastolic 63–86; PULSE 67–82; RESP 14–19; TEMP 36.3–37; O2SAT 94–98; BMI 22.1
--- NOTE | 2020-04-19 09:38 | XR_ITS ---
WS: [id number] Portable AP upright chest, 04/19/2020 Clinical Data: chest pain Comparison: Portable chest, 04/17/2020 Findings: No nodules, masses or effusions are seen. The heart is normal. The pulmonary vascularity is not increased. No pneumonia or pneumothorax is seen. The aortic arch and descending aorta show mild tortuosity. There are monitor leads on the chest wall. XR/XR chest 1V portable [id number] Impression: Atherosclerosis.
--- NOTE | 2020-04-19 09:39 | ECG_ITS ---
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 Measurements Intervals [place] Rate: 78 P: 63 VT: 150 QRS: 42 QRSD: 116 T: -19 QT: 392 QTc: 449 Interpretive Statements SINUS RHYTHM Compared to ECG 04/17/2020 16:17:23 Incomplete right bundle-branch block no longer present T-wave abnormality no longer present Electronically Signed On 04-19-2020 16:06:49 CDT by Dayton Queen M.D. [id number] f
--- NOTE | 2020-04-19 09:39 | ED_ITS ---
HPI - Chest Pain General: Chief Complaint: Chest Pain Stated Complaint: CHEST PAIN Time Seen by Provider: 04/19/20 09:31 History of Present Illness: HPI narrative: 69-year-old male was in complaining of chest pain. This is his third visit in the last 7 days. He was here 5 days ago 3 days ago and today altered both other times she is complaining of chest pain. Chest pain began at rest he did take some nitro this morning he said he was not feeling well and his discomfort went into his left arm he took 3 nitro he did not really get much help at all called EMS the time he arrived here he said that the discomfort is completely gone EMS did give him aspirin and more nitro. He did have a stress test about a year ago which reported to him as normal. He is not noticed any pain with movement or with deep inspiration. 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 complaint: chest pain Pertinent past history: coronary artery disease Onset (ago): hour(s) Timing of current episode: episodic Prior episodes: Yes Onset: during rest Pain location: substernal and left chest Pain radiation: left arm Severity: moderate Quality: tightness Relieving factors: nitroglycerin and rest Exacerbating factors: nothing Associated symptoms: Deny abdominal pain, diaphoresis, dyspnea, fever(s), leg edema, nausea, palpitations, sense of impending doom, syncope, vomiting or other Treatment prior to arrival: none Review of Systems Const: Denies: fever(s) or diaphoresis ENMT: Denies: throat pain, ear or mastoid pain, nasal discharge or nasal congestion Card: Denies: palpitations or syncope Resp: Denies: dyspnea GI: Denies: abdominal pain, nausea or vomiting : Denies: flank pain, dysuria, urinary frequency or urinary urgency Skin/Breast: Denies: rash or pruritus PFSH ED PFSH: Medical History CAD (coronary artery disease) Cervical spondylosis 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 Erectile dysfunction Non-ST elevation [place] (NSTEMI) Stable angina Surgical History History of cardiac cath CAD s/p stent to LAD and RCA in 2019 Hx of left inguinal hernia repair Family History Mother Dementia Hypertension CAD (coronary artery disease) Denies family history of Diabetes Clotting disorder Hyperlipidemia Psychiatric illness Chronic kidney disease (CKD) Suicide Anesthesia complication Bleeding disorder Family history of premature coronary artery disease Lung disease Cancer Stroke Social History Smoking and tobacco status: former smoker Alcohol intake: never Marital status: Physical Exam Const: COMMON NORMALS: no acute distress GENERAL APPEARANCE: cooperative and comfortable ORIENTATION/CONSCIOUSNESS: Yes awake, Yes oriented to person, Yes oriented to place and Yes oriented to time HENMT: COMMON NORMALS: normocephalic, atraumatic and hearing grossly normal bilaterally HEAD & SCALP: normocephalic and atraumatic Eye: COMMON NORMALS: Equal, round and reactive pupils present, EOMs intact bilaterally, conjunctivae normal and no scleral icterus CONJUNCTIVA: Yes conjunctivae normal PUPIL: Yes Equal, round and reactive pupils present Neck/C-Spine: COMMON NORMALS: full ROM, no lymphadenopathy, supple and no JVD Lymph: LYMPHATIC: no lymphadenopathy noted and no lymphedema noted Resp: COMMON NORMALS: normal respiratory effort, No retractions, No use of accessory muscles and clear to auscultation bilaterally AUSCULTATION: clear to auscultation bilaterally Cardio: COMMON NORMALS: no JVD, regular rate, regular rhythm and No murmurs present (Cardio) RATE: regular rate RHYTHM: regular rhythm GI: COMMON NORMALS: Soft to palpation and No hepatosplenomegaly present AUSCULTATION: Yes normoactive bowel sounds PALPATION: Yes Soft to palpation, No Tenderness to palpation present (GI), No Guarding due to palpation present (GI) and Yes No hepatosplenomegaly present Extremity: COMMON NORMALS: normal to inspection, capillary refill normal, no clubbing, cyanosis or edema, no calf tenderness and no pedal edema Neuro: SENSORIUM/ORIENTATION: Yes oriented to person, Yes oriented to place and Yes oriented to time Skin: COMMON NORMALS: no rashes or lesions noted GENERAL SKIN EXAM: no rashes or lesions noted Course Vital Signs: Vital signs: Vital Signs Temperature 98.0 F 04/20/20 14:07 Pulse Rate 82 04/20/20 14:07 Respiratory Rate 14 04/20/20 14:07 Blood Pressure 127/76 04/20/20 14:07 Pulse Oximetry 96 04/20/20 14:07 MDM - Chest Pain MDM Narrative: Medical decision making narrative: Admit for evaluation for chest pain rule out [place] and possible stress testing. Patient did have relief of chest pain with nitro. Discussed with Dr. Small, he will admit. Lab Data: Labs: Lab Results 04/19/20 04/19/20 04/19/20 Range/Units 08:50 08:50 08:50 WBC 7.5 (4.0-10.0) 10^3/ uL RBC 5.03 (4.1-5.3) 10^6/u L Hgb 15.1 (11.7-16.6) g/dL Hct 47.0 (42.0-52.0) % MCV 93.4 (80-94) fL MCH 30.0 (28.0-34.0) pg MCHC 32.1 (30.0-36.0) g/dL RDW 13.5 (12.1-15.1) % Plt Count 208 (130-400) 10^3/c mm MPV 10.5 H (7.4-10.4) fL Neut % (Auto) 35.1 % Lymph % (Auto) 52.0 % [place] % (Auto) 8.6 % Eos % (Auto) 2.9 % Baso % (Auto) 1.1 % Neut # (Auto) 2.64 (1.8-7.7) 10^3/u L Lymph # (Auto) 3.9 (0.8-4.8) 10^3/u L [place] # (Auto) 0.7 (0.2-0.9) 10^3/u L Eos # (Auto) 0.2 (0.0-0.8) 10^3/u L Baso # (Auto) 0.1 (0.0-0.1) 10^3/u L Nucleated RBC % (a uto) 0 % Nucleated RBCs # 0.0 /100WBC Sodium 141 (136-145) mmol/L Potassium 4.3 (3.5-5.1) mmol/L Chloride 103 (98-107) mmol/L Carbon Dioxide 28 (22-29) mmol/L Anion Gap 14.3 (5-19) BUN 16 (8-23) mg/dL Creatinine 0.8 (0.7-1.2) mg/dL GFR Calculation 96.1 (90-130) mL/min Glucose 100 (65-115) mg/dL Calculated Osmolal ity 288 (285-295) mOsm/k g Calcium 9.3 (8.5-10.5) mg/dL Magnesium (1.7-2.3) mg/dL Total Bilirubin 1.0 (0.15-1.2) mg/dL AST 27 (0-40) U/L ALT 39 (0-41) U/L Alkaline Phosphata se 100 (40-130) IU/L Troponin T Baselin e 9 (0-15) ng/L Troponin T [address] [place] (0-15) ng/L Delta Troponin T (0-10) ABS# Total Protein 7.7 (6.6-8.7) g/dL Albumin 4.9 (3.5-5.2) g/dL Globulin 2.8 (1.3-4.6) g/dL 04/19/20 04/19/20 Range/Units 08:50 10:46 WBC (4.0-10.0) 10^3/ uL RBC (4.1-5.3) 10^6/u L Hgb (11.7-16.6) g/dL Hct (42.0-52.0) % MCV (80-94) fL MCH (28.0-34.0) pg MCHC (30.0-36.0) g/dL RDW (12.1-15.1) % Plt Count (130-400) 10^3/c mm MPV (7.4-10.4) fL Neut % (Auto) % Lymph % (Auto) % [place] % (Auto) % Eos % (Auto) % Baso % (Auto) % Neut # (Auto) (1.8-7.7) 10^3/u L Lymph # (Auto) (0.8-4.8) 10^3/u L [place] # (Auto) (0.2-0.9) 10^3/u L Eos # (Auto) (0.0-0.8) 10^3/u L Baso # (Auto) (0.0-0.1) 10^3/u L Nucleated RBC % (a uto) % Nucleated RBCs # /100WBC Sodium (136-145) mmol/L Potassium (3.5-5.1) mmol/L Chloride (98-107) mmol/L Carbon Dioxide (22-29) mmol/L Anion Gap (5-19) BUN (8-23) mg/dL Creatinine (0.7-1.2) mg/dL GFR Calculation (90-130) mL/min Glucose (65-115) mg/dL Calculated Osmolal ity (285-295) mOsm/k g Calcium (8.5-10.5) mg/dL Magnesium 2.5 H (1.7-2.3) mg/dL Total Bilirubin (0.15-1.2) mg/dL AST (0-40) U/L ALT (0-41) U/L Alkaline Phosphata se (40-130) IU/L Troponin T Baselin e (0-15) ng/L Troponin T 120 Min [place] 6.00 (0-15) ng/L Delta Troponin T -3.00 L (0-10) ABS# Total Protein (6.6-8.7) g/dL Albumin (3.5-5.2) g/dL Globulin (1.3-4.6) g/dL Discharge Plan Discharge Admit Provider: Ronal Small Condition: Stable Discharge Orders: Discharge Order (Routine); Ordered 04/20/20 Ordered By: Ronal Small Discharge Diet: Usual diet Discharge Activity: Resume usual activity Discharge Date/Time: 04/19/20 13:02 Coding Level of Care Code ED Elevator Repairer for Chg Fwd Exam Comprehensive
[2020-04-19 09:49] LABS: Basophils # 0.1 10^3/uL (0.0-0.1); Basophils % 1.1 %; Eosinophils # 0.2 10^3/uL (0.0-0.8); Eosinophils % 2.9 %; Hemoglobin 15.1 g/dL (11.7-16.6); Lymphocytes # 3.9 10^3/uL (0.8-4.8); Mean Corpuscular HGB Conc 32.1 g/dL (30.0-36.0); Mean Corpuscular Volume 93.4 fL (80-94); Mean Platelet Volume 10.5 fL (7.4-10.4); Monocytes # 0.7 10^3/uL (0.2-0.9); Monocytes % 8.6 %; Neutrophils # 2.64 10^3/uL (1.8-7.7); Neutrophils % 35.1 %; Nucleated Red Blood Cells % 0 %; Platelet Count 208 10^3/cmm (130-400); Red Blood Count 5.03 10^6/uL (4.1-5.3); Red Cell Distribution Width 13.5 % (12.1-15.1); White Blood Count 7.5 10^3/uL (4.0-10.0)
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
[2020-04-19 10:17] LABS: Alanine Aminotransferase 39 U/L (0-41); Albumin Level 4.9 g/dL (3.5-5.2); Alkaline Phosphatase 100 IU/L (40-130); Anion Gap 14.3 (5-19); Aspartate Amino Transferase 27 U/L (0-40); Blood Urea Nitrogen 16 mg/dL (8-23); Calcium 9.3 mg/dL (8.5-10.5); Carbon Dioxide 28 mmol/L (22-29); Chloride 103 mmol/L (98-107); Globulin 2.8 g/dL (1.3-4.6); Glomerular Filtration Rate 96.1 mL/min (90-130); Glucose 100 mg/dL (65-115); Osmolality Calculated 288 mOsm/kg (285-295); Potassium 4.3 mmol/L (3.5-5.1); Sodium 141 mmol/L (136-145); Total Protein 7.7 g/dL (6.6-8.7)
[2020-04-19 10:18] LABS: Troponin(5th) Baseline 9 ng/L (0-15)
--- NOTE | 2020-04-19 11:39 | ECG_ITS ---
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 Measurements Intervals [place] Rate: 63 P: 46 PA: 165 QRS: 48 QRSD: 104 T: 18 QT: 410 QTc: 423 Interpretive Statements SINUS RHYTHM POSSIBLE RIGHT VENTRICULAR CONDUCTION DELAY [RSR (QR) IN V1/V2] Compared to ECG 04/19/2020 09:34:42 No significant changes Electronically Signed On 04-19-2020 16:26:43 CDT by Dayton Queen M.D. [id number]
--- NOTE | 2020-04-19 12:42 | PM.HP ---
Providers/Chief Complaint Admitting Physician: Ronal Small MD Primary Care Provider: Andres Dickens NP Chief Complaint: CHEST PAIN History of Present Illness 69 year old male with past medical history of coronary artery disease status post stent in LAD and RCA in 2019, dyslipidemia, BPH, came in with chief complaint of left sided chest pain started this morning around 5 am. He describe the pain as pressure-like radiating to his left arm accompanied by tingling and numbness of the left arm and hand. Since the onset of the pain he has taken 5 sublingual nitro which partially relieves the pain.He deny any shortness of breath, pain with inspiration, or with movement, fever, cough, diaphoresis, nausea vomiting, headache, any sick contact. Review of Systems General: Reports: 10 or more systems reviewed and unremarkable except in HPI and below Narrative: 69-year-old currently not in acute distress being admitted for chest pain evaluation Const: Denies: fever(s), chills, body aches, change in appetite or diaphoresis Card: Denies: palpitations, edema, swelling of feet/ankles, dyspnea on exertion, orthopnea or leg pain with exertion Resp: Denies: dyspnea, productive cough, wheezing or pain on inspiration GI: Denies: abdominal pain, nausea, vomiting, diarrhea or constipation : Denies: flank pain or difficulty urinating Musc: Denies: back pain, extremity pain or extremity swelling Neuro: Denies: headache(s), difficulty walking or confusion Medications/Allergies Home Medications Medication Instructions Recorded Confirmed Last Taken Type aspirin 81 mg tablet,delayed 81 mg PO DAILY 09/28/19 04/19/20 04/19/20 History release ibuprofen 200 mg tablet 200 mg PO Q6H PRN 09/28/19 04/19/20 04/17/20 History levothyroxine 100 mcg capsule 100 mcg PO DAILY 09/28/19 04/19/20 04/19/20 History nitroglycerin 0.4 mg sublingual 0.4 mg SUBLINGUAL Q5M PRN 09/28/19 04/19/20 04/19/20 History tablet metoprolol tartrate 25 mg tablet 12.5 mg PO BID 90 Days #90 tab 10/12/19 04/19/20 04/19/20 Rx isosorbide mononitrate 10 mg tablet 10 mg PO BID 01/27/20 04/19/20 04/19/20 History simvastatin 80 mg tablet 80 mg PO DAILY 01/27/20 04/19/20 04/18/20 History tamsulosin 0.4 mg capsule 0.4 mg PO DAILY 01/27/20 04/19/20 04/18/20 History tizanidine 4 mg tablet 4 mg PO BID PRN #60 tab 01/27/20 04/19/20 Unknown Rx meclizine 25 mg PO QID PRN #30 tab 01/29/20 04/19/20 Unknown Rx plizgnkv-lty-exaiyqd fumarate 9 mg PO DAILY 04/17/20 04/19/20 04/19/20 History [Multi Vitamin] Plavix 75 mg PO DAILY 04/19/20 04/19/20 04/19/20 History Allergies Allergy/AdvReac Type Severity Reaction Status Date / Time oxycodone Allergy Unknown head Verified 04/17/20 18:18 spinning tramadol Allergy head Verified 04/17/20 18:18 spinning PFSH Acute PFSH: Medical History (Updated 04/19/20 @ 15:12 by Ronal Small MD) CAD (coronary artery disease) 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 Erectile dysfunction Non-ST elevation CA (NSTEMI) Surgical History History of cardiac cath CAD s/p stent to LAD and RCA in 2019 Hx of left inguinal hernia repair Family History (Updated 04/19/20 @ 13:08 by Ronal Small MD) Mother Dementia Hypertension CAD (coronary artery disease) Denies family history of Diabetes Clotting disorder Hyperlipidemia Psychiatric illness Chronic kidney disease (CKD) Suicide Anesthesia complication Bleeding disorder Family history of premature coronary artery disease Lung disease Cancer Stroke Social History (Updated 04/19/20 @ 13:09 by Ronal Small MD) Smoking and tobacco status: former smoker Alcohol intake: never Marital status: Vitals/I&O/Wt Last Vital Signs Temp 97.8 F 04/19/20 09:31 Pulse 68 04/19/20 11:21 Resp 14 04/19/20 11:21 BP 100/73 04/19/20 11:21 Pulse Ox 98 04/19/20 11:21 Weight last 48 hrs Weight 76.204 kg Physical Exam HENMT: COMMON NORMALS: normocephalic, atraumatic, hearing grossly normal bilaterally and external ears normal Eye: COMMON NORMALS: no scleral icterus GENERAL EYE: appearance normal, both eyes and all related structures Chest: COMMONS NORMALS: normal inspection of the chest and normal palpation of entire chest wall CHEST: Yes Symmetrical chest wall rise Resp: COMMON NORMALS: normal respiratory effort, No retractions, No use of accessory muscles and clear to auscultation bilaterally EFFORT & INSPECTION: Yes symmetric chest movement Cardio: COMMON NORMALS: regular rate, regular rhythm, S1 normal heart sound present, S2 normal heart sound present, No gallops present (Cardio), No murmurs present (Cardio), No rub (Cardio) and Peripheral pulses 2+ throughout GI: COMMON NORMALS: Normal to inspection, nondistended, normoactive bowel sounds present, Soft to palpation, non-tender, No hepatosplenomegaly present and no masses AUSCULTATION: Yes normoactive bowel sounds RECTAL EXAM: Yes deferred : COMMON NORMALS: Yes no CVA tenderness Extremity: COMMON NORMALS: no clubbing, cyanosis or edema and no pedal edema Neuro: COMMON NORMALS: patient oriented x3 Data : 04/19/20 08:50 04/19/20 08:50 Other Labs: Laboratory Tests 04/19/20 04/19/20 04/19/20 08:50 10:46 14:55 Troponin T Baseline 9 Troponin T 120 Minute 6.00 Troponin T Hi Sens 6Hr 7.33 CXR: Radiologist's impression: Findings: No nodules, masses or effusions are seen. The heart is normal. The pulmonary vascularity is not increased. No pneumonia or pneumothorax is seen. The aortic arch and descending aorta show mild tortuosity. There are monitor leads on the chest wall. Impression: Atherosclerosis. Other Imaging: Radiologist's impression: Lexiscan MIBI (12/27/2018) IMPRESSIONS Myocardial perfusion imaging is normal and low probability for obstructive coronary artery disease. EKG segment will be documented separately. TTE (08/28/2018) CONCLUSIONS 1-Normal left ventricular cavity size. Normal left ventricular systolic function. Left ventricular ejection fraction is estimated at 55 %. Grade I/IV diastolic dysfunction (abnormal relaxation filling pattern), normal to mildly elevated filling pressures. 2-There is no pericardial effusion. 3-No significant valve abnormalities. 4-Right atrial pressure is around 5 mm of mercury. 5-There are no prior echocardiogram studies to compare. Coronary angiogram (08/28/2018)\ Diagnostic Cath Status: Urgent Diagnostic Findings LM has 0% stenosis. CX has 0% stenosis. Proximal Left Anterior Descending Coronary Artery: Severe 75% stenosis,SONJA: 3 flow. Mid Left Anterior Descending Coronary Artery: Moderate 65% stenosis, SONJA: 3flow. Mid Right Coronary Artery: Severe 100% stenosis, SONJA: 0 flow.Coronary angiography shows right dominance. Interventional Findings Proximal Left Anterior Descending Coronary Artery: 75% stenosis treated with Drug Eluting Stent. 0% residual stenosis, SONJA: 3 flow. Lesion was prepared with 2.5 x 15mm AB trek balloon followed by deployment of [place] 3.0 22 mm stent postdilated with 3.08 mm noncompliant balloon with multiple inflations throughout their length. Excellent angiographic result with SONJA-3 flow was achieved. Mid Right Coronary Artery: 100% stenosis treated with Drug Eluting Stent. 0% residual stenosis, SONJA: 3 flow. Lesion was prepared with compliant balloon followed by deployment of drug-eluting stent. Excellent angiographic result with SONJA-3 flow was achieved. Conclusions There is severe coronary artery disease with two vessel disease. Proximal Left Anterior Descending Coronary Artery was successfully treated with Drug Eluting Stent and two Balloon. Mid Right Coronary Artery was successfully treated with Drug Eluting Stent and Balloon. 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 EKG has failed to show any acute myocardial injury and 1 st 2 sets of troponins are flat.Chest is likely atypical.But given his prior h/o of NSTEMI and CAD S/P stent. Patient has been kept as an observation for further work up.3 rd set of Troponin T is awaited. Cardiology is on Board Status: Acute Qualifiers: Chest pain type: unspecified Qualified Code(s): R07.9 - Chest pain, unspecified (2) CAD (coronary artery disease): CAD S/P Stent to LAD and RCA in 2019.Admission EKG has failed to show any acute myocardial injury.Initial 2 sets of Troponins ( baseline and 2 hrs apart) ----> Delta -3 .Third set is due at 14:55 pm. Patient is currently not complaining of any chest pain. He has been started on his home medications.Cardiology is on board. Status: Acute Qualifiers: Associated angina: without angina Coronary Disease-Associated Artery/Lesion type: [place] artery [place] vs. transplanted heart: shawnee heart Qualified Code(s): I25.10 - Atherosclerotic heart disease of [place] coronary artery without angina pectoris (3) 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: Will continue with atorvastatin 40 mg oral daily Status: Acute Additional A&P Information DVT: On SCD FULL CODE CARDIAC DIET Attestations Medical Necessity Statement*: Patient has known h/o CAD and has stent in place.Came in with c/o left sided chest pain . He Will need cardiology input and if needed further workup. 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 transplanted heart: shawnee heart 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 E78.5
[2020-04-19 13:27] LABS: Magnesium 2.5 mg/dL (1.7-2.3)
--- NOTE | 2020-04-19 13:30 | PC.NURSE ---
Patient arrived to [facility] at 1300 from ER. Patient denies any CP or SOB. Patient states that his CP started at 0500 this am. Patient reports taking three nitros before calling 911. Pain radiated down left arm. Patient oriented to room and call light. VSS, see physical assessment. No needs identified at this time. Nurse to continue to monitor.
[2020-04-19] MEDS: atorvastatin 40 mg Tablet PO (14:15)
[2020-04-19 14:54] LABS: Add Urine Microscopic? NO
[2020-04-19 15:00] LABS: Bilirubin Urine Neg (NEGATIVE); Blood Urine Neg (Negative); Glucose Urine UA Norm (Normal); Ketones Urine Negative (Negative); Leukocyte Esterase Urine Negative (Negative); Nitrate Urine Negative (Negative); Protein Urine Neg (Negative); Urine Appearance Clear (CLEAR); Urine Color Straw (Yellow); Urobilinogen Urine Norm (Negative); pH Urine 6.5 (5-7)
[2020-04-19 15:21] LABS: Troponin 5 6HR 7.33 ng/L (0-15)
[2020-04-19 15:23] LABS: Troponin 5 6HR Delta -1.67 ng/L (0-12)
--- NOTE | 2020-04-19 17:00 | PC.NURSE ---
Patient reported to nurse that patient suffers from severe anxiety at home. stated that [facility] he begins to hyperventilate and is unable to get out of the car and doesn't come inside. states patient becomes very anxious at home. States PCP prescribed an anxiety pill but is unsure of what the prescription is called or if the patient takes it at home. Dr. Thurston notified of statement. Physician to see patient and make plan of care. No new orders at this time.
[2020-04-19] MEDS: isosorbide mononitrate 20 mg Tablet 10 MG PO (17:05)
[2020-04-19] MEDS: metoprolol tartrate 25 mg Tablet 12.5 MG PO (17:06)
--- NOTE | 2020-04-19 17:52 | PM.CONSULT ---
Providers/Reason For Consult Consulting Physican/Specialty*: Cardiology Reason for Consult*: Chest pain Requesting Physcian: Dr. Tenorio Attending Physician: Ronal Small MD Primary Care Provider: Andres Dickens NP History of Present Illness History of Present Illness Kasey Malone Jr is a 69 year old male past medical history significant for history of coronary artery disease with non-ST elevation IA status post drug-eluting stent to mid RCA and proximal LAD, history of nonobstructive mid LAD lesion and history of nonobstructive proximal RCA stenosis thought to be managed medically in 2019 came in with chest pain at rest going on for the last 2 to 3 days. Patient has been to emergency room at couple of occasion and over last 3 days. He was ruled out and sent home. Today again he came back to ER when started feeling chest pain radiating to left arm nitroglycerin x2 relieved the pain. He has has history of anxiety. He thinks he is going to with another heart attack. He denies exertional component to the chest pain but he has not walked much. His blood pressure remained stable. He denies PND orthopnea shortness of breath presyncope or syncope. Twelve-lead EKG did not show any significant ST-T ST changes suggestive of ischemia. His cardiac enzymes other within normal limits. Chest pain character is same and he had his non-ST elevation IA however it is of less intensity Meds/Allergies Home Medications and Allergies Home Medications Medication Instructions Recorded Confirmed Last Taken Type aspirin 81 mg tablet,delayed 81 mg PO DAILY 09/28/19 04/19/20 04/19/20 History release ibuprofen 200 mg tablet 200 mg PO Q6H PRN 09/28/19 04/19/20 04/17/20 History levothyroxine 100 mcg capsule 100 mcg PO DAILY 09/28/19 04/19/20 04/19/20 History nitroglycerin 0.4 mg sublingual 0.4 mg SUBLINGUAL Q5M PRN 09/28/19 04/19/20 04/19/20 History tablet metoprolol tartrate 25 mg tablet 12.5 mg PO BID 90 Days #90 tab 10/12/19 04/19/20 04/19/20 Rx isosorbide mononitrate 10 mg tablet 10 mg PO BID 01/27/20 04/19/20 04/19/20 History simvastatin 80 mg tablet 80 mg PO DAILY 01/27/20 04/19/20 04/18/20 History tamsulosin 0.4 mg capsule 0.4 mg PO DAILY 01/27/20 04/19/20 04/18/20 History tizanidine 4 mg tablet 4 mg PO BID PRN #60 tab 01/27/20 04/19/20 Unknown Rx meclizine 25 mg PO QID PRN #30 tab 01/29/20 04/19/20 Unknown Rx hndqxokg-tsi-vhslfgh fumarate 9 mg PO DAILY 04/17/20 04/19/20 04/19/20 History [Multi Vitamin] Plavix 75 mg PO DAILY 04/19/20 04/19/20 04/19/20 History Allergies Allergy/AdvReac Type Severity Reaction Status Date / Time oxycodone Allergy Unknown head Verified 04/17/20 18:18 spinning tramadol Allergy head Verified 04/17/20 18:18 spinning Current Medications Current Medications Generic Name Dose Route Start Last Admin Trade Name Freq PRN Reason Stop Dose Admin Atorvastatin Calcium 40 mg 04/19/20 13:07 04/19/20 14:15 Lipitor PO 40 mg DAILY AXEL Administration Isosorbide Mononitrate 10 mg 04/19/20 18:00 04/19/20 17:05 Ismo PO 10 mg BID AXEL Administration Metoprolol Tartrate 12.5 mg 04/19/20 18:00 04/19/20 17:06 Lopressor PO 12.5 mg BID AXEL Administration PFSH Acute PFSH: Medical History CAD (coronary artery disease) 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 Erectile dysfunction Non-ST elevation IA (NSTEMI) Surgical History History of cardiac cath CAD s/p stent to LAD and RCA in 2019 Hx of left inguinal hernia repair Family History Mother Dementia Hypertension CAD (coronary artery disease) Denies family history of Diabetes Clotting disorder Hyperlipidemia Psychiatric illness Chronic kidney disease (CKD) Suicide Anesthesia complication Bleeding disorder Family history of premature coronary artery disease Lung disease Cancer Stroke Social History Smoking and tobacco status: former smoker Alcohol intake: never Marital status: Vitals/I&O/Wt Last Vital Signs Temp 98.0 F 04/19/20 14:48 Pulse 82 04/19/20 14:48 Resp 16 04/19/20 14:48 BP 124/73 04/19/20 14:48 Pulse Ox 96 04/19/20 14:48 04/19/20 04/19/20 04/19/20 06:59 14:59 22:59 Output Total 50 / 50 Balance -50 / -50 Weight last 48 hrs Weight 168 lb Physical Exam Narrative: EXAM NARRATIVE: GENERAL: Patient is alert, awake and oriented x3. NECK: No jugular vein distension. HEENT: No cyanosis. No icterus. No pallor. HEART: Regular S1 and S2. No murmur, rub or gallop. LUNGS: Clear to auscultate bilaterally. ABDOMEN: Soft, nontender and nondistended. Positive bowel sounds. No guarding, rebound or tenderness. CENTRAL NERVOUS SYSTEM: Grossly nonfocal. EXTREMITIES: Lower extremities without edema bilaterally. A&P Assessment and plan (1) Chest pain: Patient has multiple episode of chest pain in last 2 to 3 days prompted couple of ER visits, chest pain presentation is nonexertional but at rest relieved with nitroglycerin. Patient has history of prior stents and non-ST elevation IA he also has history of nonobstructive coronary artery disease, he has been ruled out for acute coronary syndrome however for risk stratification I will proceed with treadmill nuclear stress test in the morning. Will increase isosorbide mononitrate. Further plan will be advised as per progress of the patient Status: Acute Qualifiers: Chest pain type: unspecified Qualified Code(s): R07.9 - Chest pain, unspecified (2) CAD (coronary artery disease): As above patient has history of stent placed in LAD and RCA. Continue aspirin statin beta-dennys and Plavix. Stress test in the morning for worsening of chest pain Status: Acute Qualifiers: Coronary Disease-Associated Artery/Lesion type: [place] artery [place] vs. transplanted heart: solomon heart Associated angina: without angina Qualified Code(s): I25.10 - Atherosclerotic heart disease of [place] coronary artery without angina pectoris (3) 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: Continues statin. Status: Acute Coding Level of Care Code New Pt Acute Medical Collections Representative for [facility] Fwd Patient Type New History Detailed Exam Detailed Medical Decision Making Moderate Complexity Diagnoses Chest pain R07.9 Chest pain type: unspecified CAD (coronary artery disease) I25.10 Coronary Disease-Associated Artery/Lesion type: [place] artery [place] vs. transplanted heart: solomon heart Associated angina: without angina 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 E78.5
[2020-04-20 03:45] VITALS: BP 115/74; PULSE 66; RESP 15; TEMP 36.3; O2SAT 95
[2020-04-20 03:59] LABS: Basophils % 0.6 %; Eosinophils # 0.3 10^3/uL (0.0-0.8); Eosinophils % 4.1 %; Hematocrit 43.2 % (42.0-52.0); Hemoglobin 13.7 g/dL (11.7-16.6); Lymphocytes # 2.7 10^3/uL (0.8-4.8); Lymphocytes % 38.9 %; Mean Corpuscular HGB Conc 31.7 g/dL (30.0-36.0); Mean Corpuscular Hemoglobin 29.9 pg (28.0-34.0); Mean Corpuscular Volume 94.3 fL (80-94); Mean Platelet Volume 10.4 fL (7.4-10.4); Monocytes # 0.7 10^3/uL (0.2-0.9); Monocytes % 10.3 %; Neutrophils # 3.13 10^3/uL (1.8-7.7); Nucleated Red Blood Cells % 0 %; Platelet Count 190 10^3/cmm (130-400); Red Blood Count 4.58 10^6/uL (4.1-5.3); Red Cell Distribution Width 13.7 % (12.1-15.1); White Blood Count 6.8 10^3/uL (4.0-10.0)
--- NOTE | 2020-04-20 04:14 | PC.NURSE ---
Pt has rested good throughout this shift. Denies chest pain. Voiced no needs or concerns. VSS. No apparent distress noted. Has been NPO since midnight for stress test today. Will continue to monitor.
[2020-04-20 04:24] LABS: INR 0.98 (0.8-1.2)
[2020-04-20 04:25] LABS: Partial Thromboplastin Time 30.5 SECONDS (23.9-36.7)
[2020-04-20 04:35] LABS: Alanine Aminotransferase 36 U/L (0-41); Albumin Level 4.2 g/dL (3.5-5.2); Alkaline Phosphatase 87 IU/L (40-130); Aspartate Amino Transferase 24 U/L (0-40); Blood Urea Nitrogen 15 mg/dL (8-23); Calcium 8.9 mg/dL (8.5-10.5); Carbon Dioxide 28 mmol/L (22-29); Chloride 105 mmol/L (98-107); Globulin 2.8 g/dL (1.3-4.6); Glomerular Filtration Rate 96.1 mL/min (90-130); Glucose 100 mg/dL (65-115); Osmolality Calculated 284 mOsm/kg (285-295); Sodium 139 mmol/L (136-145); Total Bilirubin 1.5 mg/dL (0.15-1.2)
[2020-04-20 04:37] LABS: Magnesium 2.3 mg/dL (1.7-2.3)
--- NOTE | 2020-04-20 06:00 | ECG_ITS ---
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 Interpretive Statements NAME OF STUDY: LEXISCAN SESTAMIBI STRESS TEST INDICATION: Chest Pain NOTE: Please note that this is the electrocardiogram portion of the Lexiscan/Sestamibi stress test. The perfusion scan will be documented separately. DATA: Baseline heart rate was 84 beats per minute. Baseline blood pressure was 149/94 millimeters of mercury. Target heart rate was 152. Maximum heart rate achieved was 144. which was 94 % of the predicted target heart rate. Maximum blood pressure was 203/97 millimeters of mercury. The reason for ending the test was completion of the protocol. The patient did not experience any symptoms. ELECTROCARDIOGRAM: BASELINE: Sinus rhythm. Normal axis. Otherwise, no ST-T changes suggestive of ischemia noted. No arrhythmia noted. EXERCISE: After Lexiscan injection, no ST-T changes suggestive of ischemic noted. No arrhythmia noted. 1. EKG not suggestive of ischemia 2. Lexiscan injection unremarkable. 3. Perfusion scan will be documented separately. Electronically Signed On 04-27-2020 16:49:01 CDT by Gladys Thurston M.D. [id number]
[2020-04-20 07:13] VITALS: BP 135/82; PULSE 73; RESP 15; TEMP 36.5; O2SAT 98
--- NOTE | 2020-04-20 07:15 | PC.NURSE ---
Patient resting in bed at time of assessment. Patient denies any pain. No needs identified at this time. Nurse to continue to monitor.
--- NOTE | 2020-04-20 07:30 | PC.NURSE ---
Patient off unit to stress test. VSS.
[2020-04-20 08:13] VITALS: BP 162/89; PULSE 95
--- NOTE | 2020-04-20 08:47 | PM.PN ---
Subjective Subjective: Interval history: No acute event over night. Patient slept well over night. He has not experienced any chest pain since admission.Patient underwent exercise nuclear scan this morning. vitals reviewed. Medications: Reviewed: Yes Vitals/I&O/Wt Last Vital Signs Temp 97.7 F 04/20/20 07:13 Pulse 95 04/20/20 08:13 Resp 15 04/20/20 07:13 BP 162/89 04/20/20 08:13 Pulse Ox 98 04/20/20 07:13 04/19/20 04/20/20 04/20/20 22:59 06:59 14:59 Intake Total 360 / 360 720 / 1080 Balance 360 / 310 720 / 1030 Weight last 48 hrs Weight 76.839 kg Weight 76.204 kg Physical Exam Const: COMMON NORMALS: patient oriented x3 HENMT: COMMON NORMALS: normocephalic, atraumatic, hearing grossly normal bilaterally and external ears normal HEAD & SCALP: normocephalic and atraumatic EXTERNAL EAR: Yes external ears normal Eye: COMMON NORMALS: no scleral icterus GENERAL EYE: appearance normal, both eyes and all related structures Chest: COMMONS NORMALS: normal inspection of the chest and normal palpation of entire chest wall CHEST: Yes Symmetrical chest wall rise Resp: COMMON NORMALS: normal respiratory effort, No retractions, No use of accessory muscles and clear to auscultation bilaterally EFFORT & INSPECTION: Yes symmetric chest movement AUSCULTATION: clear to auscultation bilaterally Cardio: COMMON NORMALS: regular rate, regular rhythm, S1 normal heart sound present, S2 normal heart sound present, No gallops present (Cardio), No murmurs present (Cardio), No rub (Cardio) and Peripheral pulses 2+ throughout RATE: regular rate RHYTHM: regular rhythm HEART SOUNDS: S1 normal heart sound present and S2 normal heart sound present PERIPHERAL PULSES: Peripheral pulses 2+ throughout GI: COMMON NORMALS: Normal to inspection, nondistended, normoactive bowel sounds present, Soft to palpation, non-tender, No hepatosplenomegaly present and no masses AUSCULTATION: Yes normoactive bowel sounds PALPATION: Yes Soft to palpation and Yes No hepatosplenomegaly present RECTAL EXAM: Yes deferred : COMMON NORMALS: Yes no CVA tenderness BLADDER/KIDNEY EXAM: Yes no CVA tenderness Back/Pelvis: COMMON NORMALS: no CVA tenderness Extremity: COMMON NORMALS: no clubbing, cyanosis or edema and no pedal edema Neuro: COMMON NORMALS: patient oriented x3 Data : 04/20/20 03:10 04/20/20 03:10 A&P Assessment and plan (1) Stable angina: 69 y o male with h/o CAD S/P Stent ( LAD, RCA 2019 for NSTEMI ) came in with c/o lt sided chest pain Initial work up has failed to show any acute myocardial injury. EKG has failed to show any acute myocardial injury and Serial troponins are flat.Chest pain is likely due to chronic stable.He underwent exercise nuclear nuclear scan today and tolerated the procedure well. Cardiology is on board and we are awaiting recommendations. Status: Acute (2) CAD (coronary artery disease): Status: Acute Qualifiers: Associated angina: without angina Coronary Disease-Associated Artery/Lesion type: [place] artery [place] vs. 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 transplanted heart: [place] heart 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 E78.5 Cervical spondylosis M47.812
[2020-04-20] MEDS: metoprolol tartrate 25 mg Tablet 12.5 MG PO (09:10)
[2020-04-20] MEDS: tamsulosin 0.4 mg Capsule PO (09:10)
[2020-04-20] MEDS: clopidogrel 75 mg Tablet PO (09:10)
[2020-04-20] MEDS: levothyroxine 100 mcg Tablet PO (09:10)
[2020-04-20] MEDS: multivitamin therapeutic Tablet 1 TAB PO (09:10)
[2020-04-20] MEDS: aspirin 81 mg EC Tablet PO (09:10)
--- NOTE | 2020-04-20 09:23 | P.DS_ITS ---
Discharge Providers Date of Admission: 04/19/20 11:38 Date of Discharge: April 20, 2020 Attending Provider at Admission: Ronal Small MD Attending Provider at Discharge: Ronal Small MD Primary Care Provider: Andres Dickens NP Diagnoses at Discharge Discharge Diagnosis (1) Stable angina: Status: Acute (2) CAD (coronary artery disease): Status: Acute Qualifiers: Associated angina: without angina Coronary Disease-Associated Artery/Lesion type: [place] artery [place] vs. transplanted heart: [place] heart Qualified Code(s): I25.10 - Atherosclerotic heart disease of [place] coronary artery without angina pectoris (3) 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: Status: Acute Reason for Visit Reason for Visit: CHEST PAIN Hospital Course Discharge Summary: Kasey Malone Jr is a 69 year old male past medical history significant for history of coronary artery disease with non-ST elevation [place] status post drug-eluting stent to mid RCA and proximal LAD, history of nonobstructive mid LAD lesion and history of nonobstructive proximal RCA stenosis managed medically in 2019 came in with chest pain at rest going on for the last 2 to 3 days. Patient has been to emergency room at couple of occasion and over last 3 days. He was ruled out and sent home. He was admitted on 04/19/2020 when started feeling chest pain radiating to left arm nitroglycerin x2 relieved the pain. On admission He denied exertional chest pain , PND orthopnea shortness of breath presyncope or syncope. Twelve-lead EKG did not show any significant ST-T ST changes suggestive of ischemia. His cardiac enzymes other within normal limits. During the current hospital stay he underwent treadmill nuclear stress test as per cardiology recommendations.He tolerated the stress test well and no ischemia was found. Current hospital stay was uneventful.He will continue to follow his PCP as well as his [employer] as outpatient. Physical Exam Const: COMMON NORMALS: patient oriented x3 HENMT: COMMON NORMALS: normocephalic, atraumatic, hearing grossly normal bilaterally and external ears normal HEAD & SCALP: normocephalic and atraumatic EXTERNAL EAR: Yes external ears normal Eye: COMMON NORMALS: no scleral icterus GENERAL EYE: appearance normal, both eyes and all related structures Chest: COMMONS NORMALS: normal inspection of the chest and normal palpation of entire chest wall CHEST: Yes Symmetrical chest wall rise Resp: COMMON NORMALS: normal respiratory effort, No retractions, No use of accessory muscles and clear to auscultation bilaterally EFFORT & INSPECTION: Yes symmetric chest movement AUSCULTATION: clear to auscultation bilaterally Cardio: COMMON NORMALS: regular rate, regular rhythm, S1 normal heart sound present, S2 normal heart sound present, No gallops present (Cardio), No murmurs present (Cardio), No rub (Cardio) and Peripheral pulses 2+ throughout RATE: regular rate RHYTHM: regular rhythm HEART SOUNDS: S1 normal heart sound present and S2 normal heart sound present PERIPHERAL PULSES: Peripheral pulses 2+ throughout GI: COMMON NORMALS: Normal to inspection, nondistended, normoactive bowel sounds present, Soft to palpation, non-tender, No hepatosplenomegaly present and no masses AUSCULTATION: Yes normoactive bowel sounds PALPATION: Yes Soft to palpation and Yes No hepatosplenomegaly present RECTAL EXAM: Yes deferred Extremity: COMMON NORMALS: no clubbing, cyanosis or edema and no pedal edema Neuro: COMMON NORMALS: patient oriented x3 Discharge Data Data Completed and Pending: Completed Studies During Hospitalization Category Date Time Status Sestamibi Stress Test Request Routi ne Exams 04/20/20 06:00 Draft XR chest 1V [place] ble [id number] Stat Exams 04/19/20 09:38 Completed Pending at discharge Category Date Time Status NM rufino perf SPECT r/s* [id number] Routin e Nuc Med 04/20/20 18:04 Ordered Labs from last 24 hours 04/20/20 04/20/20 04/20/20 03:10 03:10 03:10 WBC RBC Hgb Hct MCV MCH MCHC RDW Plt Count MPV Neut % (Auto) Lymph % (Auto) [place] % (Auto) Eos % (Auto) Baso % (Auto) Neut # (Auto) Lymph # (Auto) [place] # (Auto) Eos # (Auto) Baso # (Auto) Nucleated RBC % (a uto) Nucleated RBCs # PT 13.30 INR 0.98 APTT 30.5 Sodium 139 Potassium 4.0 Chloride 105 Carbon Dioxide 28 Anion Gap 10.0 BUN 15 Creatinine 0.8 GFR Calculation 96.1 Glucose 100 Calculated Osmolal ity 284 L Calcium 8.9 Magnesium 2.3 Total Bilirubin 1.5 H AST 24 ALT 36 Alkaline Phosphata se 87 Troponin T Baselin e Troponin T 120 Min [place] Delta Troponin T Troponin T Hi Sens 6Hr Troponin T Hi Sens 6Hr Delta Total Protein 7.0 Albumin 4.2 Globulin 2.8 Urine Color Urine Appearance Urine pH Ur Specific Gravit y Urine Protein Urine Glucose (UA) Urine Ketones Urine Blood Urine Nitrate Urine Bilirubin Urine Urobilinogen Ur Leukocyte [place] 04/20/20 04/19/20 04/19/20 03:10 14:55 14:45 WBC 6.8 RBC 4.58 Hgb 13.7 Hct 43.2 MCV 94.3 H MCH 29.9 MCHC 31.7 RDW 13.7 Plt Count 190 MPV 10.4 Neut % (Auto) 46.0 Lymph % (Auto) 38.9 [place] % (Auto) 10.3 Eos % (Auto) 4.1 Baso % (Auto) 0.6 Neut # (Auto) 3.13 Lymph # (Auto) 2.7 [place] # (Auto) 0.7 Eos # (Auto) 0.3 Baso # (Auto) 0.0 Nucleated RBC % (a uto) 0 Nucleated RBCs # 0.0 PT INR APTT Sodium Potassium Chloride Carbon Dioxide Anion Gap BUN Creatinine GFR Calculation Glucose Calculated Osmolal ity Calcium Magnesium Total Bilirubin AST ALT Alkaline Phosphata se Troponin T Baselin e Troponin T 120 Min [place] Delta Troponin T Troponin T Hi Sens 6Hr 7.33 Troponin T Hi Sens 6Hr Delta -1.67 L Total Protein Albumin Globulin Urine Color Straw Urine Appearance Clear Urine pH 6.5 Ur Specific Gravit y 1.010 Urine Protein Neg Urine Glucose (UA) Norm Urine Ketones Negative Urine Blood Neg Urine Nitrate Negative Urine Bilirubin Neg Urine Urobilinogen Norm Ur Leukocyte [place] Negative 04/19/20 04/19/20 04/19/20 10:46 08:50 08:50 WBC RBC Hgb Hct MCV MCH MCHC RDW Plt Count MPV Neut % (Auto) Lymph % (Auto) [place] % (Auto) Eos % (Auto) Baso % (Auto) Neut # (Auto) Lymph # (Auto) [place] # (Auto) Eos # (Auto) Baso # (Auto) Nucleated RBC % (a uto) Nucleated RBCs # PT INR APTT Sodium Potassium Chloride Carbon Dioxide Anion Gap BUN Creatinine GFR Calculation Glucose Calculated Osmolal ity Calcium Magnesium 2.5 H Total Bilirubin AST ALT Alkaline Phosphata se Troponin T Baselin e 9 Troponin T 120 Min [place] 6.00 Delta Troponin T -3.00 L Troponin T Hi Sens 6Hr Troponin T Hi Sens 6Hr Delta Total Protein Albumin Globulin Urine Color Urine Appearance Urine pH Ur Specific Gravit y Urine Protein Urine Glucose (UA) Urine Ketones Urine Blood Urine Nitrate Urine Bilirubin Urine Urobilinogen Ur Leukocyte [place] 04/19/20 04/19/20 08:50 08:50 WBC 7.5 RBC 5.03 Hgb 15.1 Hct 47.0 MCV 93.4 MCH 30.0 MCHC 32.1 RDW 13.5 Plt Count 208 MPV 10.5 H Neut % (Auto) 35.1 Lymph % (Auto) 52.0 [place] % (Auto) 8.6 Eos % (Auto) 2.9 Baso % (Auto) 1.1 Neut # (Auto) 2.64 Lymph # (Auto) 3.9 [place] # (Auto) 0.7 Eos # (Auto) 0.2 Baso # (Auto) 0.1 Nucleated RBC % (a uto) 0 Nucleated RBCs # 0.0 PT INR APTT Sodium 141 Potassium 4.3 Chloride 103 Carbon Dioxide 28 Anion Gap 14.3 BUN 16 Creatinine 0.8 GFR Calculation 96.1 Glucose 100 Calculated Osmolal ity 288 Calcium 9.3 Magnesium Total Bilirubin 1.0 AST 27 ALT 39 Alkaline Phosphata se 100 Troponin T Baselin e Troponin T 120 Min [place] Delta Troponin T Troponin T Hi Sens 6Hr Troponin T Hi Sens 6Hr Delta Total Protein 7.7 Albumin 4.9 Globulin 2.8 Urine Color Urine Appearance Urine pH Ur Specific Gravit y Urine Protein Urine Glucose (UA) Urine Ketones Urine Blood Urine Nitrate Urine Bilirubin Urine Urobilinogen Ur Leukocyte [place] Imaging^: Sestamibi stress test: Radiologist's impression: PERFUSION FINDINGS Small area of decreased tracer uptake was noted in basal to mid inferior and inferoseptal wall on rest images which improved significantly over stress images suggestive of artifact however cannot rule out old myocardial infarction FUNCTIONAL RESULTS (calculated via Gated SPECT) Stress Image LV EF (%): 62 Stress EDV (mL):91 TID: 0.95 Stress ESV (mL):35 Rest Image LV EF (%): 62 FUNCTIONAL FINDINGS: There appeared to be basal to mid inferior wall hypokinesis. IMPRESSIONS This study is negative for ischemia. EKG segment will be documented separately Vitals: Last Vital Signs Temp 97.7 F 04/20/20 07:13 Pulse 95 04/20/20 08:13 Resp 15 04/20/20 07:13 BP 162/89 04/20/20 08:13 Pulse Ox 98 04/20/20 07:13 Discharge Plan Discharge Patient Disposition: Home Condition: Stable Prescriptions: New isosorbide mononitrate 30 mg tablet extended release 24 hr 30 mg PO DAILY Qty: 30 RF: 1 Continued aspirin [Adult Aspirin Regimen] 81 mg tablet,delayed release (DR/EC) 81 mg PO DAILY RF: 0 nitroglycerin [Nitrostat] 0.4 mg tablet, sublingual 0.4 mg SUBLINGUAL Q5M PRN (Reason: CHEST PAINS) RF: 0 levothyroxine 100 mcg capsule 100 mcg PO DAILY RF: 0 ibuprofen 200 mg tablet 200 mg PO Q6H PRN (Reason: Pain) RF: 0 tamsulosin 0.4 mg capsule 0.4 mg PO DAILY RF: 0 simvastatin 80 mg tablet 80 mg PO DAILY RF: 0 tizanidine 4 mg tablet 4 mg PO BID PRN (Reason: muscle spasticity) Qty: 60 RF: 0 metoprolol tartrate 25 mg tablet 12.5 mg PO BID 90 Days Qty: 90 RF: 3 meclizine 25 mg tablet 25 mg PO QID PRN (Reason: dizziness) Qty: 30 RF: 0 Multi Vitamin 9 mg iron/15 mL Liquid 9 mg PO DAILY RF: 0 Plavix 75 mg tablet 75 mg PO DAILY RF: 0 Discontinued isosorbide mononitrate 10 mg tablet 10 mg PO BID RF: 0 Discharge Orders: Discharge Order (Routine); Ordered 04/20/20 Ordered By: Ronal Small Referrals: Andres Dickens NP [Primary Care Provider] - 1 week Lisa Bertrand FNP [Nurse Practitioner] - 2 weeks Discharge Diet: Usual diet Discharge Activity: Resume usual activity Patient Instructions: Isosorbide Mononitrate (By mouth), Angina (DC), Chest Pain Stoplight Activity Restrictions/Additional Instructions: Please follow-up with your Pcp and and in cardiology clinic Discharge Attestations Time Spent in Discharge Care*: greater than 30 min Specific Discharge Activities: Specific discharge activities: educating patie nt, discussing with pcp/other providers and documenting/other paperwork Status at Discharge: Overall status at discharge: patient is back to baseline Quality Metrics Clinical Quality Measures During this hospital stay, did patient experience: None Coding Level of Care Code Acute Concrete Polisher for Chg Fwd Exam Comprehensive Diagnoses Stable angina I20.8 CAD (coronary artery disease) I25.10 Associated angina: without angina Coronary Disease-Associated Artery/Lesion type: [place] artery [place] vs. transplanted heart: [place] heart 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 E78.5
--- NOTE | 2020-04-20 09:28 | PC.NURSE ---
Dr. Thurston gave telephone order to increase Ismo to [address] Thurston contacted as pharmacy instructed nurse unable to split tablet to give [address] Thurston gave telephone order to discontinue Ismo and administer 30 mg Imdur PO daily, RBVO.
[2020-04-20] MEDS: isosorbide mononitrate ER 30 mg Tablet PO (09:35)
[2020-04-20 11:37] VITALS: BP 107/70; PULSE 72; RESP 17; TEMP 36.8; O2SAT 96
--- NOTE | 2020-04-20 11:52 | P.PN_ITS ---
Subjective Subjective: Interval history: Denies any more chest pain isosorbide was optimized. Stress test was negative for Vitals/I&O/Wt Last Vital Signs Temp 98.2 F 04/20/20 11:37 Pulse 72 04/20/20 11:37 Resp 17 04/20/20 11:37 BP 107/70 04/20/20 11:37 Pulse Ox 96 04/20/20 11:37 04/19/20 04/20/20 04/20/20 22:59 06:59 14:59 Intake Total 360 / 360 720 / 1080 360 / 360 Balance 360 / 310 720 / 1030 360 / 360 Weight last 48 hrs Weight 169 lb 6.4 oz Weight 168 lb Physical Exam Narrative: EXAM NARRATIVE: GENERAL: Patient is alert, awake and oriented x3. NECK: No jugular vein distension. HEENT: No cyanosis. No icterus. No pallor. HEART: Regular S1 and S2. No murmur, rub or gallop. LUNGS: Clear to auscultate bilaterally. ABDOMEN: Soft, nontender and nondistended. Positive bowel sounds. No guarding, rebound or tenderness. CENTRAL NERVOUS SYSTEM: Grossly nonfocal. EXTREMITIES: Lower extremities without edema bilaterally. Data : 04/20/20 03:10 04/20/20 03:10 A&P Assessment and plan (1) Chest pain: Denies any more chest pain. Continue to optimize medicine most likely chest pain was atypical and related to anxiety however cannot rule out coronary spasm patient has been switched to isosorbide mononitrate continue rest of the medicine as it is. Follow-up with cardiology in 7 to 10 days, stress test is negative. Status: Acute Qualifiers: Chest pain type: unspecified Qualified Code(s): R07.9 - Chest pain, unspecified (2) CAD (coronary artery disease): Stable. Continue current medicine Status: Acute Qualifiers: Coronary Disease-Associated Artery/Lesion type: [place] artery [place] vs. transplanted heart: [place] heart Associated angina: without angina Qualified Code(s): I25.10 - Atherosclerotic heart disease of [place] coronary artery without angina pectoris (3) 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: Continues statin. Status: Acute Attestations Medical Necessity Statement*: Patient require continuation hospitalization for above defined care Coding Level of Care Code Established Pt Acute Tip Scourer for g Fwd Patient Type Established History Expanded Problem Focused Exam Expanded Problem Focused Medical Decision Making Moderate Complexity Diagnoses Chest pain R07.9 Chest pain type: unspecified CAD (coronary artery disease) I25.10 Coronary Disease-Associated Artery/Lesion type: [place] artery [place] vs. transplanted heart: [place] heart Associated angina: without angina 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 E78.5
--- NOTE | 2020-04-20 13:20 | PC.CHAP ---
Pastoral Care Encounter/Spiritual Assessment Type of Contact [] Declined installation manager visit [] Patient/Family/Request visit [] Outpatient visit [] Follow-up visit [] Physician referral [] Code/Alert [x] Routine visit [] Staff referral [] Actively dying [] Patient sleeping [] Family support [] [] Out of room [] Palliative care [] [] Receiving care in room [] Pre-surgical visit [] Trauma [] Long length of stay [] ICU visit [] Other: Relational/Emotional Strength [x] Patient feels connected with others/family/visitors/staff [] Distress [] Loneliness/isolation [] Abandonment Spirituality of Patient [x] Person of Ekaterina [] Attends Adventist of their [place]ina [x] Believes in Prayer [] Reads Bible or Gnosticist materials [] There are Spiritual issues to be addressed Homicide Squad Commanding Officer Interventions [x] Prayer [x] Active listening [x] Non-anxious presence [x] Spiritual/emotional support [] Crisis/trauma care [] Spiritual counseling [] Bereavement support [] Provided bereavement packet [] Provided Bible/devotional materials [] Provided toy/stuffed animal, coloring book to patient or family member [] Provided Communion [] Anointing/[place] [] Salvation [x] Completed spiritual assessment [] Other: Impact on Illness or Injury [] Angry [] Fearful [x] Anxious [] Often cries [] Exhaustion [] Unable to work [] Unable to attend voodoo [] Unable to walk/stand [] Unable to read [] Unable to drive [] Unable to eat/drink [] Unable to sleep [x] Unable to be with family [] Patient intubated [] Other: Summary Patient stated that he was ready to get out of here . Stated that he came to the hospital because he has had a heart attack before and was experiencing chest pains and got worried. He stated that they didn't find anything but I wanted to be sure. Homicide Squad Commanding Officer prayed with the patient and told him if he needed anything from the chaplains to let his nursing staff know and they would contact us. Patient was visited by Homicide Squad Commanding Officer Olman Samuel Time spent with patient 18 minutes
--- NOTE | 2020-04-20 14:00 | PC.NURSE ---
Discharge instructions given per the physicians orders. Patient verbalized understanding of medication changes and did not have any further questions. IV has been removed. Patient dressed self. has been notified for ride home.
--- NOTE | 2020-04-20 14:01 | PC.RESP ---
PATIENT DOES NOT HAVE A QUALIFYING HX OF LUNG DISEASE AND DOES NOT QUALIFY FOR PULMONARY REHAB AT THIS TIME.
[2020-04-20 14:07] VITALS: BP 127/76; PULSE 82; RESP 14; TEMP 36.7; O2SAT 96
--- NOTE | 2020-04-20 18:04 | NMCV_ITS ---
NM rufino perf SPECT r/s* [id number] MoeleftyKasey colvin Jr Age: 69 Gender: M : 1950 Exam Date: 04/20/2020 07:14 Ordering Phys: Gladys Thurston MD ([email or web address]) Technologist: SHAYY Anton Exam Location: [facility] Indications: Chest pain STRESS TEST Please see separate stress test report in [facility] for full findings IMAGE PROTOCOL Rest/Stress 1 Exercise Day Radiopharmaceutical Dose (mCi) Administration Site Administered by Rest: Tc-99m 10.7 IV Sophia Dami, SILK SPOOLER Sestamibi Stress:Tc-99m 33.0 IV Sophia Dami, SILK SPOOLER Sestamibi Rest: 20-Apr-2020 60 Discovery 630 Stress: 20-Apr-2020 15 Discovery 630 Radiopharmaceutical was injected at 88 % maximum heart rate. Images obtained in supine and prone position. SPECT RESULTS Technical Quality: Good Raw Data Analysis: Normal Image Corrections: No attenuation or motion correction applied Summed Stress Score: 3 Summed Rest Score: 4 Summed Difference Score: 0 PERFUSION FINDINGS Small area of decreased tracer uptake was noted in basal to mid inferior and inferoseptal wall on rest images which improved significantly over stress images suggestive of artifact however cannot rule out old myocardial infarction FUNCTIONAL RESULTS (calculated via Gated SPECT) Stress Image LV EF (%): 62 Stress EDV (mL):91 TID: 0.95 Stress ESV (mL):35 Rest Image LV EF (%): 62 FUNCTIONAL FINDINGS: There appeared to be basal to mid inferior wall hypokinesis. IMPRESSIONS This study is negative for ischemia. EKG segment will be documented separately. Gladys Thurston MD (Electronically Signed) Final Date: 20 April 2020 11:44 S
== END 2020-04-20 14:09 | disposition home or self-care (01) ==
LOC: ER 10:58 → CSU 12:19
PROVIDERS: Admitting Provider Internal Medicine; Emergency Provider Family Medicine; PCP Nurse Practitioner Family; Visit Provider Internal Medicine
DX: I25.110 Atherosclerotic heart disease of native coronary artery with unstable angina pectoris (principal); E78.5 Hyperlipidemia, unspecified; I70.0 Atherosclerosis of aorta; I25.2 Old myocardial infarction; N52.9 Male erectile dysfunction, unspecified; Z79.82 Long term (current) use of aspirin; Z79.01 Long term (current) use of anticoagulants; Z79.899 Other long term (current) drug therapy; Z87.891 Personal history of nicotine dependence
CPT/HCPCS: 12345; 36415; 71045; 78452; 80053; 81003; 83735; 84484; 85025; 85610; 85730; 93005; 93017; 96374; 96375; 99283; 99285; A9500; G0378

== ENCOUNTER 2021-01-29 15:10 | Outpatient (CLI) | payer MEDICARE, SELFPAY ==
--- NOTE | 2021-01-29 15:24 | XR_ITS ---
WS: [id number] LEFT HIP HISTORY: LEFT GROIN PAIN COMPARISON: None available. LEFT hip: No acute fracture or dislocation. Minimal sclerosis along the superior acetabulum. No destr uction of the bone. XR/XR hip LT 2-3V wo/w pel* [id number] IMPRESSION: 1. No hip fracture. 2. Very minimal changes of osteoarthritis.
== END 2021-01-29 15:11 | disposition home or self-care (01) ==
PROVIDERS: PCP Nurse Practitioner Family; Visit Provider Nurse Practitioner Family
DX: R10.9 Unspecified abdominal pain (principal)
CPT/HCPCS: 73502

== ENCOUNTER 2021-02-12 09:37 | Emergency (ER) | payer MEDICARE, SELFPAY ==
[2021-02-12] VITALS (7 sets, daily range): BP systolic 115–134; BP diastolic 77–90; PULSE 65–73; RESP 16–18; TEMP 36.6–36.8; O2SAT 95–99; BMI 23.1
--- NOTE | 2021-02-12 10:13 | XRR_ITS ---
PROCEDURE INFORMATION: Exam: XR Chest Exam date and time: 02/12/2021 10:13 AM Age: 70 years old Clinical indication: Pain; Radiating and left-sided; Prior surgery; Surgery type: Stent; Patient HX: No energy; Heart racing; Discomfort on left side radiating down to left arm; Since this am; Additional info: Chest pain TECHNIQUE: Imaging protocol: XR of the chest. Views: 1 view. COMPARISON: CR XR chest 1V portable [id number] 04/19/2020 10:04 AM FINDINGS: Lungs: The lungs are somewhat hyperinflated with increased interstitial markings, likely representing COPD. No evidence of focal consolidation to suggest pneumonia. Pleural spaces: Unremarkable. No pleural effusion. No pneumothorax. Heart/Mediastinum: Stable cardiomediastinal silhouette. Bones/joints: Unremarkable. XR/XR chest 1V portable [id number] IMPRESSION: No evidence of focal consolidation. COPD changes.
--- NOTE | 2021-02-12 10:13 | ECG_ITS ---
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 Measurements Intervals [place] Rate: 66 P: 60 PA: 178 QRS: 52 QRSD: 109 T: -9 QT: 383 QTc: 404 Interpretive Statements SINUS RHYTHM POSSIBLE RIGHT VENTRICULAR CONDUCTION DELAY [RSR (QR) IN V1/V2] ST changes suggestive of early repolarization. Nonspecific T wave changes. INTERPRETATION BASED ON A DEFAULT AGE OF 40 YEARS Compared to ECG 04/19/2020 11:09:30 No significant changes Electronically Signed On 02-13-2021 0:23:18 CDT by Berto Martins M.D. [email or web address]
[2021-02-12 10:35] LABS: Basophils # 0.1 10^3/uL (0.0-0.1); Eosinophils # 0.4 10^3/uL (0.0-0.8); Eosinophils % 5.1 %; Hematocrit 46.7 % (42.0-52.0); Hemoglobin 15.2 g/dL (11.7-16.6); Lymphocytes # 2.5 10^3/uL (0.8-4.8); Lymphocytes % 35.5 %; Mean Corpuscular HGB Conc 32.5 g/dL (30.0-36.0); Mean Corpuscular Hemoglobin 30.3 pg (28.0-34.0); Mean Platelet Volume 10.3 fL (7.4-10.4); Monocytes # 0.6 10^3/uL (0.2-0.9); Monocytes % 8.7 %; Neutrophils # 3.44 10^3/uL (1.8-7.7); Neutrophils % 49.6 %; Nucleated Red Blood Cells % 0 %; Platelet Count 177 10^3/cmm (130-400); Red Blood Count 5.02 10^6/uL (4.1-5.3); Red Cell Distribution Width 12.9 % (12.1-15.1); White Blood Count 6.9 10^3/uL (4.0-10.0)
--- NOTE | 2021-02-12 10:52 | ED_ITS ---
HPI - Chest Pain General: Chief Complaint: Chest Pain Stated Complaint: chest pain, left arm tingling Time Seen by Provider: 02/12/21 10:06 History of Present Illness: HPI narrative: 70-year-old male presents emergency room complaining of chest pain that began earlier this morning while at rest. He has a known history of coronary disease as per previous stents is on clopidogrel. He has pain discomfort radiating to his left arm with tingling. He had some just needle with it no diaphoresis no nausea or vomiting. MD complaint: chest pain Pertinent past history: coronary artery disease Onset (ago): minute(s) Timing of current episode: episodic Prior episodes: Yes Onset: during rest Pain location: left chest Pain radiation: left arm and left shoulder Severity: mild Associated symptoms: Deny abdominal pain, dyspnea, fever(s), nausea or vomiting Review of Systems Const: Denies: fever(s), chills, body aches, change in appetite, fatigue or malaise ENMT: Denies: throat pain, ear or mastoid pain, nasal discharge or nasal congestion Card: Reports: chest pain; Denies: edema, dyspnea on exertion or orthopnea Resp: Denies: dyspnea, productive cough or non-productive cough GI: Denies: abdominal pain, nausea, vomiting, hematemesis, coffee ground emesis, diarrhea, constipation, bloating, hematochezia or melena : Denies: flank pain, dysuria, urinary frequency or urinary urgency Skin/Breast: Denies: rash or pruritus PFSH ED PFSH: Medical History (Updated 02/20/21 @ 00:00 by ) CAD (coronary artery disease) Cervical spondylosis 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 Erectile dysfunction Non-ST elevation [place] (NSTEMI) Stable angina Surgical History History of cardiac cath CAD s/p stent to LAD and RCA in 2019 Hx of left inguinal hernia repair Family History Mother Dementia Hypertension CAD (coronary artery disease) Denies family history of Diabetes Clotting disorder Hyperlipidemia Psychiatric illness Chronic kidney disease (CKD) Suicide Anesthesia complication Bleeding disorder Family history of premature coronary artery disease Lung disease Cancer Stroke Social History Smoking and tobacco status: former smoker Alcohol intake: never Marital status: Physical Exam Const: COMMON NORMALS: no acute distress GENERAL APPEARANCE: cooperative and comfortable ORIENTATION/CONSCIOUSNESS: Yes awake, Yes oriented to person, Yes oriented to place and Yes oriented to time HENMT: COMMON NORMALS: normocephalic, atraumatic, hearing grossly normal bilaterally and external ears normal HEAD & SCALP: normocephalic and atraumatic EXTERNAL EAR: Yes external ears normal Eye: COMMON NORMALS: Equal, round and reactive pupils present, EOMs intact bilaterally, conjunctivae normal and no scleral icterus CONJUNCTIVA: Yes conjunctivae normal PUPIL: Yes Equal, round and reactive pupils present Neck/C-Spine: COMMON NORMALS: full ROM, no lymphadenopathy, supple and no JVD Lymph: LYMPHATIC: no lymphadenopathy noted and no lymphedema noted Resp: COMMON NORMALS: normal respiratory effort, No retractions, No use of accessory muscles and clear to auscultation bilaterally AUSCULTATION: clear to auscultation bilaterally Cardio: COMMON NORMALS: no JVD, regular rate, regular rhythm and No murmurs present (Cardio) RATE: regular rate RHYTHM: regular rhythm GI: COMMON NORMALS: Soft to palpation and No hepatosplenomegaly present AUSCULTATION: Yes normoactive bowel sounds PALPATION: Yes Soft to palpation, No Tenderness to palpation present (GI), No Guarding due to palpation present (GI) and Yes No hepatosplenomegaly present Extremity: COMMON NORMALS: normal to inspection, capillary refill normal, no clubbing, cyanosis or edema, no calf tenderness and no pedal edema Neuro: SENSORIUM/ORIENTATION: Yes oriented to person, Yes oriented to place and Yes oriented to time Skin: COMMON NORMALS: no rashes or lesions noted GENERAL SKIN EXAM: no rashes or lesions noted Course Vital Signs: Vital signs: Vital Signs Temperature 98.2 F 02/12/21 14:14 Pulse Rate 72 02/12/21 14:14 Respiratory Rate 18 02/12/21 14:14 Blood Pressure 134/85 02/12/21 14:14 Pulse Oximetry 98 02/12/21 14:14 MDM - Chest Pain MDM Narrative: Medical decision making narrative: Reviewed findings the patient will discharge home.Follow-up with primary care doctor within the next week if has any worsening or change symptoms return we will add Protonix. Follow-up with primary care or cardiology he had a stress test last year 10 months ago that was normal. Lab Data: Labs: Lab Results 02/12/21 02/12/21 02/12/21 Range/Units 10:28 10:28 10:28 WBC 6.9 (4.0-10.0) 10^3/ uL RBC 5.02 (4.1-5.3) 10^6/u L Hgb 15.2 (11.7-16.6) g/dL Hct 46.7 (42.0-52.0) % MCV 93.0 (80-94) fL MCH 30.3 (28.0-34.0) pg MCHC 32.5 (30.0-36.0) g/dL RDW 12.9 (12.1-15.1) % Plt Count 177 (130-400) 10^3/c mm MPV 10.3 (7.4-10.4) fL Neut % (Auto) 49.6 % Lymph % (Auto) 35.5 % [place] % (Auto) 8.7 % Eos % (Auto) 5.1 % Baso % (Auto) 1.0 % Neut # (Auto) 3.44 (1.8-7.7) 10^3/u L Lymph # (Auto) 2.5 (0.8-4.8) 10^3/u L [place] # (Auto) 0.6 (0.2-0.9) 10^3/u L Eos # (Auto) 0.4 (0.0-0.8) 10^3/u L Baso # (Auto) 0.1 (0.0-0.1) 10^3/u L Nucleated RBC % (a uto) 0 % Nucleated RBCs # 0.0 /100WBC Sodium 138 (136-145) mmol/L Potassium 4.8 (3.5-5.1) mmol/L Chloride 102 (98-107) mmol/L Carbon Dioxide 27 (22-29) mmol/L Anion Gap 13.8 (5-19) BUN 12 (8-23) mg/dL Creatinine 0.6 L (0.7-1.2) mg/dL GFR Calculation 133.6 H (90-130) mL/min Glucose 97 (65-115) mg/dL Calculated Osmolal ity 286 (285-295) mOsm/k g Calcium 9.5 (8.5-10.5) mg/dL Total Bilirubin 1.3 H (0.15-1.2) mg/dL AST 30 (0-40) U/L ALT 35 (0-41) U/L Alkaline Phosphata se 94 (40-130) IU/L Troponin T Baselin e 6 (0-15) ng/L Troponin T 120 Min [place] (0-15) ng/L Delta Troponin T (0-10) ABS# Total Protein 6.9 (6.6-8.7) g/dL Albumin 4.3 (3.5-5.2) g/dL Globulin 2.6 (1.3-4.6) g/dL 02/12/21 Range/Units 12:31 WBC (4.0-10.0) 10^3/ uL RBC (4.1-5.3) 10^6/u L Hgb (11.7-16.6) g/dL Hct (42.0-52.0) % MCV (80-94) fL MCH (28.0-34.0) pg MCHC (30.0-36.0) g/dL RDW (12.1-15.1) % Plt Count (130-400) 10^3/c mm MPV (7.4-10.4) fL Neut % (Auto) % Lymph % (Auto) % [place] % (Auto) % Eos % (Auto) % Baso % (Auto) % Neut # (Auto) (1.8-7.7) 10^3/u L Lymph # (Auto) (0.8-4.8) 10^3/u L [place] # (Auto) (0.2-0.9) 10^3/u L Eos # (Auto) (0.0-0.8) 10^3/u L Baso # (Auto) (0.0-0.1) 10^3/u L Nucleated RBC % (a uto) % Nucleated RBCs # /100WBC Sodium (136-145) mmol/L Potassium (3.5-5.1) mmol/L Chloride (98-107) mmol/L Carbon Dioxide (22-29) mmol/L Anion Gap (5-19) BUN (8-23) mg/dL Creatinine (0.7-1.2) mg/dL GFR Calculation (90-130) mL/min Glucose (65-115) mg/dL Calculated Osmolal ity (285-295) mOsm/k g Calcium (8.5-10.5) mg/dL Total Bilirubin (0.15-1.2) mg/dL AST (0-40) U/L ALT (0-41) U/L Alkaline Phosphata se (40-130) IU/L Troponin T Baselin e (0-15) ng/L Troponin T 120 Min [place] 6.00 (0-15) ng/L Delta Troponin T 0 (0-10) ABS# Total Protein (6.6-8.7) g/dL Albumin (3.5-5.2) g/dL Globulin (1.3-4.6) g/dL Discharge Plan Discharge Patient Disposition: Home Clinical Impression: Atypical chest pain, GERD (gastroesophageal reflux disease) Condition: Stable Prescriptions: New Protonix 40 mg tablet,delayed release (DR/EC) 40 mg PO DAILY 56 Days RF: 0 No Action aspirin [Adult Aspirin Regimen] 81 mg tablet,delayed release (DR/EC) 81 mg PO DAILY RF: 0 levothyroxine 100 mcg capsule 100 mcg PO DAILY RF: 0 ibuprofen 200 mg tablet 200 mg PO Q6H PRN (Reason: Pain) RF: 0 tamsulosin 0.4 mg capsule 0.4 mg PO DAILY RF: 0 nitroglycerin [Nitrostat] 0.4 mg tablet, sublingual 0.4 mg SUBLINGUAL Q5M PRN (Reason: CHEST PAINS) Qty: 25 RF: 6 simvastatin 80 mg tablet 80 mg PO DAILY Qty: 90 RF: 3 Plavix 75 mg tablet 75 mg PO DAILY Qty: 90 RF: 3 isosorbide mononitrate 30 mg tablet extended release 24 hr 30 mg PO DAILY Qty: 90 RF: 1 metoprolol tartrate 25 mg tablet See Rx Instructions .ROUTE .COMPLEX Qty: 90 RF: 3 meclizine 25 mg tablet 25 mg PO QID PRN (Reason: dizziness) Qty: 30 RF: 0 Multi Vitamin 9 mg iron/15 mL Liquid 9 mg PO DAILY RF: 0 Discharge Orders: Discharge ED (Routine); Ordered 02/12/21 Ordered By: Yfn Tenorio Referrals: Andres Dickens NP [Primary Care Provider] - Discharge Diet: Usual diet Discharge Activity: Limit activity as instructed Patient Instructions: Opioid Safety Activity Restrictions/Additional Instructions: 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 If any worsening or change symptoms return. 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
[2021-02-12 10:54] LABS: Alanine Aminotransferase 35 U/L (0-41); Albumin Level 4.3 g/dL (3.5-5.2); Alkaline Phosphatase 94 IU/L (40-130); Anion Gap 13.8 (5-19); Blood Urea Nitrogen 12 mg/dL (8-23); Calcium 9.5 mg/dL (8.5-10.5); Carbon Dioxide 27 mmol/L (22-29); Chloride 102 mmol/L (98-107); Globulin 2.6 g/dL (1.3-4.6); Glomerular Filtration Rate 133.6 mL/min (90-130); Glucose 97 mg/dL (65-115); Osmolality Calculated 286 mOsm/kg (285-295); Potassium 4.8 mmol/L (3.5-5.1); Sodium 138 mmol/L (136-145); Total Bilirubin 1.3 mg/dL (0.15-1.2); Total Protein 6.9 g/dL (6.6-8.7); Troponin(5th) Baseline 6 ng/L (0-15)
[2021-02-12 10:56] LABS: Aspartate Amino Transferase 30 U/L (0-40)
[2021-02-12] MEDS: nitroglycerin 1 gm/inch oint Pkt 1 INCH TOPICAL (11:32)
--- NOTE | 2021-02-12 11:45 | PC.NURSE ---
Patient reports left sided chest pain that started this morning. Reports pain as aching and rates as a 2 on the numeric pain scale. Denies any SOB, dizziness, or diaphoresis.
--- NOTE | 2021-02-12 12:13 | ECG_ITS ---
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 Measurements Intervals [place] Rate: 63 P: 38 TN: 164 QRS: 43 QRSD: 111 T: 5 QT: 413 QTc: 425 Interpretive Statements SINUS RHYTHM POSSIBLE RIGHT VENTRICULAR CONDUCTION DELAY [RSR (QR) IN V1/V2] Compared to ECG 02/12/2021 10:03:10 No significant changes Electronically Signed On 02-13-2021 0:50:45 CDT by Berto Martins M.D. [id number]
[2021-02-12 13:04] LABS: Troponin 5 2HR Delta 0 ABS# (0-10)
== END 2021-02-12 14:14 | disposition home or self-care (01) ==
PROVIDERS: Emergency Provider Family Medicine; PCP Nurse Practitioner Family
DX: R07.89 Other chest pain (principal); K21.9 Gastro-esophageal reflux disease without esophagitis; Z79.82 Long term (current) use of aspirin; Z79.02 Long term (current) use of antithrombotics/antiplatelets; I25.10 Atherosclerotic heart disease of native coronary artery without angina pectoris; E78.5 Hyperlipidemia, unspecified; I25.2 Old myocardial infarction; Z87.891 Personal history of nicotine dependence
CPT/HCPCS: 36415; 71045; 80053; 84484; 85025; 93005; 99284

== ENCOUNTER 2021-07-02 11:15 | Outpatient (CLI) | payer MEDICARE, SELFPAY ==
--- NOTE | 2021-07-02 11:24 | XR_ITS ---
WS: [id number] Exam: XR chest 2V* [id number] Date/Time of Exam: 07/02/2021 11:25 AM Reason For Exam: WEIGHT LOSS; COUGH Comparison 02/12/2021. The lungs are clear and fully expanded. No pleural effusions. Bilateral apical pleural thickening unc hanged. Regional bony elements are intact. Unremarkable cardiomediastinal silhouette. Signs of oconnor ry artery stenting. XR/XR chest 2V* [id number] IMPRESSION: 1. No acute cardiopulmonary finding. No change.
== END 2021-07-02 11:16 | disposition home or self-care (01) ==
LOC: RAD 11:19
PROVIDERS: PCP Nurse Practitioner Family; Visit Provider Nurse Practitioner Family
DX: R63.4 Abnormal weight loss (principal); R05.9 Cough, unspecified
CPT/HCPCS: 71046

== ENCOUNTER 2021-08-13 09:21 | Outpatient (CLI) | payer MEDICARE, SELFPAY ==
--- NOTE | 2021-08-13 09:26 | CT_ITS ---
WS: [id number] LDCT LUNG CANCER SCREENING TECHNIQUE: Noncontrast CT of the chest with coronal and sagittal reformatted images. CLINICAL INFORMATION: HX OF TOBACCO USE COMPARISON: None. DLP: 57.75 mGy.cm DIvol: 1.[address] scans at [facility] use at least one of these dose optimization techniques: automat ed exposure control; mA and/or kV adjustment per patient size (includes targeted exams where dose is matched to clinical indication); or iterative reconstruction. FINDINGS: Both lungs are well aerated. No acute pulmonary infiltrates. Coronary calcification. Calcified subcar inal and right hilar lymph nodes. No mediastinal or hilar lymphadenopathy. No axillary lymphadenopath y. Adrenal glands are normal. Small esophageal hiatal hernia. Biapical fibrosis. No suspicious pulmon jack parenchymal abnormalities. CT/CT lung screening [id number] IMPRESSION: LUNG-RADS: 1-Negative FOLLOW UP: 12 Month: Continue annual screening with LDCT
== END 2021-08-13 09:22 | disposition home or self-care (01) ==
LOC: RAD 09:21
PROVIDERS: PCP Nurse Practitioner Family; Visit Provider Family Medicine
DX: Z12.2 Encounter for screening for malignant neoplasm of respiratory organs (principal); Z87.891 Personal history of nicotine dependence
CPT/HCPCS: 71271

== ENCOUNTER 2022-01-16 08:00 | Day surgery (SDC) | payer MEDICARE, SELFPAY ==
[2022-01-14 09:28] VITALS: BMI 22.4
[2022-01-16] MEDS: sodium chloride 0.9% 1,000 ML 30 ML IV (08:17)
[2022-01-16 08:18] VITALS: BP 130/83; PULSE 67; RESP 18; TEMP 36.1; O2SAT 99
--- NOTE | 2022-01-16 09:06 | W.PM.OPSFHP ---
Same Day Surgery H&P Indication for Procedure/HPI DATE OF PROCEDURE: January 16, 2022 CHIEF COMPLAINT/INDICATIONFOR SURGICAL PROCEDURE: Screening colonoscopy PREOP DIAGNOSIS: Screening colonoscopy PLANNED PROCEDURE: Operation Date: 01/16/22 10:00 Proposed Procedures p Colonoscopy 40755 Z12.11(Not Applicable) - Riaz Howard MD 07/22/2021 Mr. Malone is a pleasant 70-year-old gentleman never had a colonoscopy before.? Is currently on blood thinners in the form of clopidogrel and aspirin daily.? Patient denies history of colon cancer or bleeding per rectum.? Patient is referred to me for screening colonoscopy 01/16/2022 Patient comes today for screening colonoscopy ROS All systems have been reviewed negative except as for the above or per problem list. Medications/Allergies* Home Medications Medication Instructions Recorded Confirmed Type aspirin 81 mg tablet,delayed 81 mg PO DAILY 09/28/19 01/16/22 History release (Adult Aspirin Regimen) tamsulosin 0.4 mg capsule 0.4 mg PO DAILY 01/27/20 01/16/22 History multivitamin with minerals-iron 9 mg PO DAILY 04/17/20 01/16/22 History fumarate 9 mg iron/15 mL oral liquid (Multi Vitamin) cholecalciferol (vitamin D3) 25 25 mcg PO DAILY 07/22/21 01/16/22 History mcg (1,000 unit) capsule levothyroxine 100 mcg capsule 100 mcg PO DAILY 07/22/21 01/16/22 History Allergies/Adverse Reactions Allergy/AdvReac Type Severity Reaction Status Date / Time oxycodone Allergy Unknown head Verified 01/16/22 09:07 spinning tramadol Allergy head Verified 01/16/22 09:07 spinning Pertinent History/Comorbid Conditions* Medical History (Updated 07/22/21 @ 14:49 by Riaz Howard MD) CAD (coronary artery disease) Cervical spondylosis 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 Erectile dysfunction Non-ST elevation NM (NSTEMI) Stable angina Surgical History (Updated 04/19/20 @ 13:04 by Ronal Small MD) History of cardiac cath CAD s/p stent to LAD and RCA in 2019 Hx of left inguinal hernia repair Family History (Updated 09/28/19 @ 10:38 by Opal Canales RN) CAD (coronary artery disease) Mother Dementia Mother Hypertension Mother Denies family history of Diabetes Clotting disorder Hyperlipidemia Psychiatric illness Chronic kidney disease (CKD) Suicide Anesthesia complication Bleeding disorder Family history of premature coronary artery disease Lung disease Cancer Stroke Social History Smoking and tobacco status: former smoker Alcohol intake: never Marital status: Pertinent Exam Findings alert, oriented x 3, regular rate & rhythm and procedure specific exam findings (Abdominal examination nontender nondistended soft) Recommendations Surgery/Procedure today (Screening colonoscopy) Coding Level of Care Code Acute Data Modeling Specialist for Wilian Velazquez
--- NOTE | 2022-01-16 09:34 | ANES.PREANE2 ---
Pre-Anesthetic Assessment Height/Weight: Height 1.85 m Weight 77.111 kg Temp Pulse Resp BP Pulse Ox 97 F L 67 18 130/83 99 01/16/22 08:18 01/16/22 08:18 01/16/22 08:18 01/16/22 08:18 01/16/22 08:18 Preop Diagnosis: Screening colonoscopy Operation Date: 01/16/22 10:00 Proposed Procedures p Colonoscopy 76654 Z12.11(Not Applicable) - Riaz Howard MD Familial anesthetic complications: None Was Beta Allison taken within 24 hours: Yes Was Clonidine taken within 24 hours: N/A Last intake: Intake Last Liquid Date 01/15/22 Last Liquid Time 21:00 Last Solid Date 01/15/22 Last Solid Time 14:00 Social No alcohol and No tobacco Exam alert, oriented x 3, clear to auscultation bilaterally and regular rate & rhythm Airway Submandibular: within normal limits Cervical ROM: within normal limits Mallampati: Class III Dentition: false Comments: Comments: small mouth opening CV/HEM Arrythmia, Coronary Artery Disease (stents) and Hypertension pacemaker Metabolic Hyperlipidemia and Thyroid Disease Anesthetic Plan ASA status: 3 Anesthesia: MAC Medications/Allergies Home Medications Medication Instructions Recorded Confirmed Last Taken Type aspirin 81 mg tablet,delayed 81 mg PO DAILY 09/28/19 01/16/22 01/14/22 History release (Adult Aspirin Regimen) tamsulosin 0.4 mg capsule 0.4 mg PO DAILY 01/27/20 01/16/22 01/15/22 History multivitamin with minerals-iron 9 mg PO DAILY 04/17/20 01/16/22 01/15/22 History fumarate 9 mg iron/15 mL oral liquid (Multi Vitamin) cholecalciferol (vitamin D3) 25 25 mcg PO DAILY 07/22/21 01/16/22 01/15/22 History mcg (1,000 unit) capsule levothyroxine 100 mcg capsule 100 mcg PO DAILY 07/22/21 01/16/22 01/15/22 History clopidogrel 75 mg tablet (Plavix) 75 mg PO DAILY #90 tab 09/23/21 01/16/22 01/11/22 Rx isosorbide mononitrate 30 mg 30 mg PO DAILY #90 tab 09/23/21 01/16/22 01/14/22 Rx tablet,extended release 24 hr metoprolol tartrate 25 mg tablet 12.5 mg PO BID #90 tab 09/23/21 01/16/22 01/16/22 07:00 Rx simvastatin 80 mg tablet 80 mg PO DAILY #90 tab 09/23/21 01/16/22 01/15/22 Rx Allergies Allergy/AdvReac Type Severity Reaction Status Date / Time oxycodone Allergy Unknown head Verified 01/16/22 09:07 spinning tramadol Allergy head Verified 01/16/22 09:07 spinning [facility] Anesthesia Medical History CAD (coronary artery disease) Cervical spondylosis 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 Erectile dysfunction Non-ST elevation [place] (NSTEMI) Stable angina Surgical History History of cardiac cath CAD s/p stent to LAD and RCA in 2019 Hx of left inguinal hernia repair Family History Mother Dementia Hypertension CAD (coronary artery disease) Denies family history of Diabetes Clotting disorder Hyperlipidemia Psychiatric illness Chronic kidney disease (CKD) Suicide Anesthesia complication Bleeding disorder Family history of premature coronary artery disease Lung disease Cancer Stroke Social History Smoking and tobacco status: former smoker Alcohol intake: never Marital status: Data Anesthesia Cardiac Studies: Sestamibi Stress Test (Cardiology) 04/20/20
[2022-01-16 10:51] VITALS: BP 104/68; PULSE 63; RESP 18; TEMP 36.6; O2SAT 97
--- NOTE | 2022-01-16 11:00 | ANE.PACU2 ---
Inpatient post-anesthesia follow up: Airway intact: Yes Vital signs: Temperature 97.9 F Pulse Rate 63 Respiratory Rate 18 Blood Pressure 104/68 Pulse Oximetry 97 Oxygen Delivery Me thod Room Air Oxygen Flow Rate Fraction of Inspir ed Oxygen Hydration adequate: Yes Nausea and vomiting: No Pain level: 1
[2022-01-16 11:02] VITALS: BP 116/81; PULSE 70; RESP 18; TEMP 36.5; O2SAT 97
== END 2022-01-16 11:23 | disposition home or self-care (01) ==
PROVIDERS: PCP Nurse Practitioner Family; Visit Provider Surgery
PROC: 0DJD8ZZ Inspection of Lower Intestinal Tract, Via Natural or Artificial Opening Endoscopic (ICD-10-PCS; CPT 45378; principal; 2022-01-16 10:00)
DX: Z12.11 Encounter for screening for malignant neoplasm of colon (principal); D12.5 Benign neoplasm of sigmoid colon; K57.30 Diverticulosis of large intestine without perforation or abscess without bleeding; Z79.82 Long term (current) use of aspirin; E78.5 Hyperlipidemia, unspecified; I25.2 Old myocardial infarction; Z95.5 Presence of coronary angioplasty implant and graft; I25.110 Atherosclerotic heart disease of native coronary artery with unstable angina pectoris; Z87.891 Personal history of nicotine dependence
CPT/HCPCS: 45380; 88305; J2704; J7030

== ENCOUNTER → 2022-02-03 09:32 | Outpatient (BNVA) | payer MEDICARE, SELFPAY | PROVIDERS: PCP Nurse Practitioner Family; Visit Provider Surgery | DX: Z09 Encounter for follow-up examination after completed treatment for conditions other than malignant neoplasm (principal); K57.31 Diverticulosis of large intestine without perforation or abscess with bleeding; K63.5 Polyp of colon | CPT/HCPCS: 99213 ==

== ENCOUNTER 2022-03-13 14:02 | Emergency (ER) | payer MEDICARE, SELFPAY ==
[2022-03-13 14:39] VITALS: BP 138/82; PULSE 81; RESP 16; TEMP 36.8; O2SAT 95; BMI 22.4
--- NOTE | 2022-03-13 16:04 | ECG_ITS ---
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 Measurements Intervals [place] Rate: 73 P: 66 FL: 155 QRS: 64 QRSD: 110 T: 7 QT: 382 QTc: 423 Interpretive Statements SINUS RHYTHM POSSIBLE RIGHT VENTRICULAR CONDUCTION DELAY [RSR (QR) IN V1/V2] INTERPRETATION BASED ON A DEFAULT AGE OF 40 YEARS Compared to ECG 02/12/2021 12:23:07 No significant changes Electronically Signed On 03-13-2022 21:28:55 CDT by Berto Martins M.D. [id number]
--- NOTE | 2022-03-13 16:04 | XRR_ITS ---
PROCEDURE INFORMATION: Exam: XR Chest Exam date and time: 03/13/2022 4:22 PM Age: 71 years old Clinical indication: Cough; Additional info: Cough, feeling ill TECHNIQUE: Imaging protocol: Radiologic exam of the chest. Views: 1 view. COMPARISON: CR XR chest 2V* [id number] 07/02/2021 11:40 AM FINDINGS: Lungs: Mild atelectasis or scar in the lung bases. Changes of emphysema. Calcified granuloma in the right base. Pleural spaces: Mild apical pleural scarring. No pleural effusion or pneumothorax. Heart/Mediastinum: Unremarkable. No cardiomegaly. Bones/joints: Unremarkable. XR/XR chest 1V portable [id number] IMPRESSION: No acute finding.
[2022-03-13 16:51] LABS: Basophils # 0.1 10^3/uL (0.0-0.1); Basophils % 0.9 %; Eosinophils # 0.4 10^3/uL (0.0-0.8); Eosinophils % 5.3 %; Hematocrit 43.1 % (42.0-52.0); Hemoglobin 14.3 g/dL (11.7-16.6); Lymphocytes # 2.9 10^3/uL (0.8-4.8); Lymphocytes % 35.3 %; Mean Corpuscular HGB Conc 33.2 g/dL (30.0-36.0); Mean Corpuscular Hemoglobin 30.4 pg (28.0-34.0); Mean Corpuscular Volume 91.5 fl (80-94); Monocytes # 0.8 10^3/uL (0.2-0.9); Monocytes % 9.5 %; Neutrophils # 3.93 10^3/uL (1.8-7.7); Neutrophils % 48.6 %; Nucleated Red Blood Cells % 0 %; Platelet Count 202 10^3/cmm (130-400); Red Blood Count 4.71 10^6/uL (4.1-5.3); Red Cell Distribution Width 13.2 % (12.1-15.1); White Blood Count 8.1 10^3/uL (4.0-10.0)
--- NOTE | 2022-03-13 17:19 | ED_ITS ---
HPI - Dizziness General: Chief Complaint: Dizziness Stated Complaint: N/Light headed Time Seen by Provider: 03/13/22 17:19 History of Present Illness: HPI Narrative: 71-year-old male patient comes in today with complaints of weakness and lightheadedness. Patient does admit that he last week on and Thursday he worked outside in the heat quite a bit. Since then he has not felt well. On Thursday this week he was around a child that ended up testing positive for COVID today. Patient continued to feel unwell and was concerned that he may have contracted COVID. Patient appears mildly unwell but not toxic. Patient appears in no pain. Associated symptoms: Denies chest pain Review of Systems General: Reports: 10 or more systems reviewed and unremarkable except in HPI and below Const: Denies: fever(s) Card: Denies: chest pain Resp: Denies: dyspnea Neuro: Reports: weakness in extremities and dizziness PFSH ED PFSH: Medical History CAD (coronary artery disease) Cervical spondylosis 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 Erectile dysfunction Non-ST elevation [place] (NSTEMI) Stable angina Surgical History History of cardiac cath CAD s/p stent to LAD and RCA in 2019 Hx of left inguinal hernia repair Family History Mother Dementia Hypertension CAD (coronary artery disease) Denies family history of Diabetes Clotting disorder Hyperlipidemia Psychiatric illness Chronic kidney disease (CKD) Suicide Anesthesia complication Bleeding disorder Family history of premature coronary artery disease Lung disease Cancer Stroke Social History Smoking and tobacco status: former smoker Alcohol intake: never Marital status: Physical Exam Const: COMMON NORMALS: alert HENMT: COMMON NORMALS: normocephalic HEAD & SCALP: normocephalic Eye: GENERAL EYE: appearance normal, both eyes and all related structures Neck/C-Spine: COMMON NORMALS: full ROM and no meningeal signs Resp: COMMON NORMALS: normal respiratory effort and clear to auscultation bilaterally AUSCULTATION: clear to auscultation bilaterally Cardio: COMMON NORMALS: regular rate and regular rhythm RATE: regular rate RHYTHM: regular rhythm GI: COMMON NORMALS: Soft to palpation and non-tender PALPATION: Yes Soft to palpation Extremity: COMMON NORMALS: no pedal edema Neuro: ADORE COMA SCALE: document GCS findings [place] coma scale eye opening: Spontaneous [place] coma scale verbal response: Orientated [place] coma scale motor response: Obey commands [place] coma scale total score: 15 SENSORIUM/ORIENTATION: Yes alert MENINGEAL SIGNS: Yes no meningeal signs GAIT: Yes Normal gait present MOTOR EXAM: Pronator motor function not present and Normal motor muscle tone present throughout Skin: COMMON NORMALS: no rashes or lesions noted GENERAL SKIN EXAM: no rashes or lesions noted Course Vital Signs: Vital signs: Vital Signs Temperature 98.3 F 03/13/22 14:39 Pulse Rate 81 03/13/22 14:39 Respiratory Rate 16 03/13/22 14:39 Blood Pressure 138/82 03/13/22 14:39 Pulse Oximetry 95 03/13/22 14:39 Oxygen Delivery Me thod 03/13/22 14:39 MDM - Dizziness Medical Decision Making 71-year-old male comes in today with complaints of weakness, and exposure to COVID-19. On exam lungs are clear to auscultation. Vital signs are normal. No edema is noted in the extremities. Heart rates regular. EKG shows sinus rhythm. Differential diagnosis includes but not limited to heat exhaustion, electrolyte imbalance, viral syndrome, COVID-19. CBC and CMP were unremarkable. Troponin was negative. COVID-19 test was outstanding. Reviewed the exam and r ecommendations with the patient. Patient reported understanding and will call back for COVID-19 results. Patient understands to return to the ER for worsening symptoms or new concerns. Lab Data : 03/13/22 16:35 03/13/22 16:35 Radiology Impressions Chest X-Ray 03/13/22 16:04 IMPRESSION: No acute finding. Laboratory Results WBC 8.1 10^3/uL (4.0-10.0) 03/13/22 16:35 RBC 4.71 10^6/uL (4.1-5.3) 03/13/22 16:35 Hgb 14.3 g/dL (11.7-16.6) 03/13/22 16:35 Hct 43.1 % (42.0-52.0) 03/13/22 16:35 MCV 91.5 fl (80-94) 03/13/22 16:35 MCH 30.4 pg (28.0-34.0) 03/13/22 16:35 MCHC 33.2 g/dL (30.0-36.0) 03/13/22 16:35 RDW 13.2 % (12.1-15.1) 03/13/22 16:35 Plt Count 202 10^3/cmm (130-400) 03/13/22 16:35 MPV 10.0 fL (7.4-10.4) 03/13/22 16:35 Neut % (Auto) 48.6 % 03/13/22 16:35 Lymph % (Auto) 35.3 % 03/13/22 16:35 [place] % (Auto) 9.5 % 03/13/22 16:35 Eos % (Auto) 5.3 % 03/13/22 16:35 Baso % (Auto) 0.9 % 03/13/22 16:35 Neut # (Auto) 3.93 10^3/uL (1.8-7.7) 03/13/22 16:35 Lymph # (Auto) 2.9 10^3/uL (0.8-4.8) 03/13/22 16:35 [place] # (Auto) 0.8 10^3/uL (0.2-0.9) 03/13/22 16:35 Eos # (Auto) 0.4 10^3/uL (0.0-0.8) 03/13/22 16:35 Baso # (Auto) 0.1 10^3/uL (0.0-0.1) 03/13/22 16:35 Nucleated RBC % (auto) 0 % 03/13/22 16:35 Nucleated RBCs # 0.0 /100WBC 03/13/22 16:35 Sodium 140 mmol/L (136-145) 03/13/22 16:35 Potassium 4.2 mmol/L (3.5-5.1) 03/13/22 16:35 Chloride 103 mmol/L (98-107) 03/13/22 16:35 Carbon Dioxide 28 mmol/L (22-29) 03/13/22 16:35 Anion Gap 13.2 (5-19) 03/13/22 16:35 BUN 17 mg/dL (8-23) 03/13/22 16:35 Creatinine 0.7 mg/dL (0.7-1.2) 03/13/22 16:35 GFR Calculation 111.5 mL/min (90-130) 03/13/22 16:35 Glucose 87 mg/dL (65-115) 03/13/22 16:35 Calculated Osmolality 291 mOsm/kg (285-295) 03/13/22 16:35 Calcium 9.9 mg/dL (8.5-10.5) 03/13/22 16:35 Total Bilirubin 1.3 mg/dL (0.15-1.2) H 03/13/22 16:35 AST 27 U/L (0-40) 03/13/22 16:35 ALT 32 U/L (0-41) 03/13/22 16:35 Alkaline Phosphatase 113 IU/L (40-130) 03/13/22 16:35 Troponin T Baseline 6 ng/L (0-15) 03/13/22 16:35 Total Protein 7.6 g/dL (6.6-8.7) 03/13/22 16:35 Albumin 4.6 g/dL (3.5-5.2) 03/13/22 16:35 Globulin 3.0 g/dL (1.3-4.6) 03/13/22 16:35 Discharge Plan Discharge Condition: Stable Prescriptions: No Action cholecalciferol (vitamin D3) 25 mcg (1,000 unit) capsule 25 mcg PO DAILY levothyroxine 100 mcg capsule 100 mcg PO DAILY aspirin [Adult Aspirin Regimen] 81 mg tablet,delayed release (DR/EC) 81 mg PO DAILY Hold Instructions: Resume on 02/20/22. tamsulosin 0.4 mg capsule 0.4 mg PO DAILY clopidogrel [Plavix] 75 mg tablet 75 mg PO DAILY Qty: 90 4RF Hold Instructions: Resume on 02/20/22. isosorbide mononitrate 30 mg tablet extended release 24 hr 30 mg PO DAILY Qty: 90 4RF metoprolol tartrate 25 mg tablet 12.5 mg PO BID Qty: 90 4RF simvastatin 80 mg tablet 80 mg PO DAILY Qty: 90 4RF Multi Vitamin 9 mg iron/15 mL Liquid 9 mg PO DAILY Referrals: Andres Dickens NP [Primary Care Provider] - Coding Level of Care Code ED [facility] [address] for Wilian Velazquez
[2022-03-13 17:29] LABS: Troponin(5th) Baseline 6 ng/L (0-15)
[2022-03-13 17:33] LABS: Alanine Aminotransferase 32 U/L (0-41); Albumin Level 4.6 g/dL (3.5-5.2); Alkaline Phosphatase 113 IU/L (40-130); Anion Gap 13.2 (5-19); Aspartate Amino Transferase 27 U/L (0-40); Blood Urea Nitrogen 17 mg/dL (8-23); Calcium 9.9 mg/dL (8.5-10.5); Carbon Dioxide 28 mmol/L (22-29); Chloride 103 mmol/L (98-107); Creatinine Clr Calc Pharmacy 95.7449; Glomerular Filtration Rate 111.5 mL/min (90-130); Glucose 87 mg/dL (65-115); Osmolality Calculated 291 mOsm/kg (285-295); Potassium 4.2 mmol/L (3.5-5.1); Sodium 140 mmol/L (136-145); Total Bilirubin 1.3 mg/dL (0.15-1.2); Total Protein 7.6 g/dL (6.6-8.7)
[2022-03-13 18:20] LABS: Adenovirus Not Detected (NOT DETECT); Chlamydia Pneumoniae Not Detected (NOT DETECT); Coronavirus 229E,HKU1,NL63,OC4 Not Detected (NOT DETECT); Human Metapneumovirus Not Detected (NOT DETECT); Human Rhinovirus/Enterovirus Not Detected (NOT DETECT); Influenza A Not Detected (NOT DETECT); Influenza A H1 Not Detected (NOT DETECT); Influenza A H1-2009 Not Detected (NOT DETECT); Influenza A H3 Not Detected (NOT DETECT); Influenza B Not Detected (NOT DETECT); Mycoplasma Pneumoniae Not Detected (NOT DETECT); Parainfluenza Virus Type 1 Not Detected (NOT DETECT); Parainfluenza Virus Type 2 Not Detected (NOT DETECT); Parainfluenza Virus Type 3 Not Detected (NOT DETECT); Parainfluenza Virus Type 4 Not Detected (NOT DETECT); Respiratory Syncytial Virus A Not Detected (NOT DETECT); Respiratory Syncytial Virus B Not Detected (NOT DETECT); SARS-COV-2 Not Detected (NOT DETECT)
== END 2022-03-13 18:00 | disposition home or self-care (01) ==
PROVIDERS: Physician Assistant; Emergency Provider Nurse Practitioner Family; PCP Nurse Practitioner Family
DX: R42 Dizziness and giddiness (principal); Z79.82 Long term (current) use of aspirin; Z79.02 Long term (current) use of antithrombotics/antiplatelets; I25.10 Atherosclerotic heart disease of native coronary artery without angina pectoris; E78.5 Hyperlipidemia, unspecified; I25.2 Old myocardial infarction; Z87.891 Personal history of nicotine dependence; Z20.822 Contact with and (suspected) exposure to COVID-19
CPT/HCPCS: 36415; 71045; 80053; 84484; 85025; 87635; 93005; 99285

== ENCOUNTER 2022-08-06 17:28 | Emergency (ER) | payer MEDICARE, SELFPAY ==
[2022-08-06 17:32] VITALS: BP 139/84; PULSE 88; RESP 14; TEMP 36.6; O2SAT 95
--- NOTE | 2022-08-06 17:47 | ED_ITS ---
HPI - Extremity Problem General: Chief complaint: Extremity Injury, Lower Stated complaint: right leg injury Time Seen by Provider: 08/06/22 17:39 History of Present Illness: 72-year-old male patient comes in today for complaints of a hematoma to his right lower leg. Patient reports that he was cutting wood today when a piece of wood came back and hit him in the leg. About an hour afterwards patient was getting changed and noticed swelling and bruising to the area that was struck by the piece of wood. Patient reports use of blood thinners. Patient appears nontoxic. Patient has a history of coronary artery disease and diverticulosis. Associated symptoms: Deny fever(s) or rash Review of Systems Const: Denies: fever(s) Resp: Denies: dyspnea GI: Denies: abdominal pain Musc: Reports: extremity pain Skin/Breast: Denies: rash PFSH ED PFSH: Medical History CAD (coronary artery disease) Cervical spondylosis 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 Erectile dysfunction Non-ST elevation [place] (NSTEMI) Stable angina Surgical History History of cardiac cath CAD s/p stent to LAD and RCA in 2019 Hx of left inguinal hernia repair Family History Mother Dementia Hypertension CAD (coronary artery disease) Denies family history of Diabetes Clotting disorder Hyperlipidemia Psychiatric illness Chronic kidney disease (CKD) Suicide Anesthesia complication Bleeding disorder Family history of premature coronary artery disease Lung disease Cancer Stroke Social History Smoking and tobacco status: former smoker Alcohol intake: never Marital status: Physical Exam Const: COMMON NORMALS: alert HENMT: COMMON NORMALS: normocephalic HEAD & SCALP: normocephalic Resp: COMMON NORMALS: normal respiratory effort and clear to auscultation bilaterally AUSCULTATION: clear to auscultation bilaterally Cardio: COMMON NORMALS: regular rate and regular rhythm RATE: regular rate RHYTHM: regular rhythm Extremity: RIGHT LOWER EXTREMITY: Yes lower leg (Proximal right lower leg just below the knee notes a hematoma) Right lower leg: Yes inspection, Yes palpation and Yes neurovascular exam Neuro: SENSORIUM/ORIENTATION: Yes alert Skin: COMMON NORMALS: no rashes or lesions noted GENERAL SKIN EXAM: no rashes or lesions noted Course Vital Signs: Vital signs: Vital Signs Temperature 97.8 F 08/06/22 17:32 Pulse Rate 88 08/06/22 17:32 Respiratory Rate 14 08/06/22 17:32 Blood Pressure 139/84 08/06/22 17:32 Pulse Oximetry 95 08/06/22 17:32 Oxygen Delivery Me thod 08/06/22 17:32 MDM - Extremity (Nontraumatic) Medical Decision Making Patient comes in for evaluation of injury to the right lower leg. On exam we know a hematoma to the medial aspect of the proximal lower leg. Patient has good range of motion of the knee. Patient ambulates without any difficulty. Differential diagnosis includes hematoma, fracture, DVT. No signs of DVT were noted. Patient is able to ambulate with minimal to no pain. Patient does have a significant hematoma to the leg. Reassured patient that most often this does not end with a DVT but reviewed signs of DVT and cellulitis. Patient reported understanding of care plan. Elastic bandage was applied to the leg for compression of the hematoma. Further recommendations were reviewed with patient and need for follow-up. Patient reported understanding. Discharge Plan Discharge Patient Disposition: Home Clinical Impression: Hematoma of lower limb Qualifiers: Encounter type: initial encounter Laterality: right Qualified Code(s): S80.11XA - Contusion of right lower leg, initial encounter Condition: Stable Prescriptions: No Action cholecalciferol (vitamin D3) 25 mcg (1,000 unit) capsule 25 mcg PO DAILY levothyroxine 100 mcg capsule 100 mcg PO DAILY aspirin [Adult Aspirin Regimen] 81 mg tablet,delayed release (DR/EC) 81 mg PO DAILY Hold Instructions: Resume on 02/20/22. tamsulosin 0.4 mg capsule 0.4 mg PO DAILY clopidogrel [Plavix] 75 mg tablet 75 mg PO DAILY Qty: 90 4RF Hold Instructions: Resume on 02/20/22. isosorbide mononitrate 30 mg tablet extended release 24 hr 30 mg PO DAILY Qty: 90 4RF metoprolol tartrate 25 mg tablet 12.5 mg PO BID Qty: 90 4RF simvastatin 80 mg tablet 80 mg PO DAILY Qty: 90 4RF Multi Vitamin 9 mg iron/15 mL Liquid 9 mg PO DAILY Discharge Orders: Discharge ED (Routine); Ordered 08/06/22 Ordered By: Lalito Wheat Referrals: Andres Dickens NP [Primary Care Provider] - Discharge Diet: Usual diet Discharge Activity: Increase activity as tolerated Patient Instructions: Hematoma (ED) Activity Restrictions/Additional Instructions: Home and rest. Elevate leg. Ice to the area on and off at 20-minute intervals for 5 times a day to help with swelling. Drink plenty of water. Monitor signs for infection such as redness, fever, and signs of venous clot such as increased swelling and calf pain. Follow-up with primary care in 1 week for recheck. Return to ED for new concerns. Coding Level of Care Code ED Order Entry Specialist for Deejayg Fwd Exam Detailed
== END 2022-08-06 17:55 | disposition home or self-care (01) ==
PROVIDERS: Emergency Provider Nurse Practitioner Family; PCP Nurse Practitioner Family
DX: S80.11XA Contusion of right lower leg, initial encounter (principal); Z79.82 Long term (current) use of aspirin; Z79.02 Long term (current) use of antithrombotics/antiplatelets; Z87.891 Personal history of nicotine dependence; I25.10 Atherosclerotic heart disease of native coronary artery without angina pectoris; E78.5 Hyperlipidemia, unspecified; I25.2 Old myocardial infarction; W20.8XXA Other cause of strike by thrown, projected or falling object, initial encounter
CPT/HCPCS: 99283

== ENCOUNTER 2022-08-08 13:11 | Emergency (ER) | payer MEDICARE, SELFPAY ==
[2022-08-08 13:13] VITALS: BP 136/79; PULSE 80; RESP 16; TEMP 36.7; O2SAT 97; BMI 23.3
--- NOTE | 2022-08-08 14:05 | USCV_ITS ---
Kasey Malone Jr Age: 72 Gender: M : 1950 Exam Date: 08/08/2022 16:01 Ordering Phys: Yoel Park Technologist: BATSHEVA Exam Location: [facility] [place] Indication: trauma rt leg HISTORY: Lower extremity swelling. PROCEDURES: Venous duplex imaging was performed in only the right lower extremity. FINDINGS: No evidence of DVT seen in any vessel visualized at this time. The veins of the right lower extremity are readily compressible with normal venous flow dynamics including spontaneous flow, respiratory phasic variation and augmentation. CONCLUSIONS No evidence of right lower extremity DVT. Shahram Trejo MD (Electronically Signed) Final Date: 11 August 2022 08:39 S
--- NOTE | 2022-08-08 14:05 | XR_ITS ---
WS: [id number] Exam: XR knee RT 3V* [id number] Date/Time of Exam: 08/08/2022 2:05 PM Reason For Exam: Please avoid hit knee-pain and bruising No acute fracture or dislocation. The joint compartments are relatively well maintained. No joint eff usion. Osteopenia. XR/XR knee RT 3V* [id number] IMPRESSION: 1. No fracture or joint effusion noted.
--- NOTE | 2022-08-08 14:08 | ED_ITS ---
HPI - Extremity Problem General: Chief complaint: Extremity Injury, Lower Stated complaint: left leg pain/swelling Time Seen by Provider: 08/08/22 13:17 History of Present Illness: Patient is a 72-year-old male comes to the ED with right lower leg complaint. Patient was seen here in the ED for same complaint 2 days ago on August 06. He states that 2 days ago he was cutting some firewood and a piece of wood kicked off from saw and hit him on the medial aspect of his right knee. Exam here to the ED and was offered an x-ray of his right knee but turned it down. He was diagnosed with a hematoma and discharged home. He states that he has been able to ambulate on her right leg with mild pain. He has been using Allen wrap to help with the pain and swelling. Over the last day he has had increased swelling in his right lower leg. He reports his pain is mild. Patient is on Plavix daily. Denies any chest pain or shortness of breath. Associated symptoms: Deny chest pain, fever(s) or rash Review of Systems Const: Denies: fever(s), chills or fatigue Eyes: Denies: change in vision or eye discomfort ENMT: Denies: throat pain, odynophagia, nasal discharge or nasal congestion Card: Denies: chest pain, palpitations, edema, swelling of feet/ankles, dyspnea on exertion or orthopnea Resp: Denies: dyspnea, productive cough or non-productive cough GI: Denies: abdominal pain, nausea, vomiting, diarrhea, constipation or hematochezia : Denies: flank pain, difficulty urinating, dysuria or hematuria Musc: Reports: extremity pain (Right knee and right lower leg) and extremity swelling (Right knee right lower leg); Denies: neck pain or back pain Skin/Breast: Denies: rash or new lesions Neuro: Denies: headache(s), numbness in extremities or weakness in extremities PFS ED PFSH: Medical History CAD (coronary artery disease) Cervical spondylosis 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 Erectile dysfunction Non-ST elevation [place] (NSTEMI) Stable angina Surgical History History of cardiac cath CAD s/p stent to LAD and RCA in 2019 Hx of left inguinal hernia repair Family History Mother Dementia Hypertension CAD (coronary artery disease) Denies family history of Diabetes Clotting disorder Hyperlipidemia Psychiatric illness Chronic kidney disease (CKD) Suicide Anesthesia complication Bleeding disorder Family history of premature coronary artery disease Lung disease Cancer Stroke Social History Smoking and tobacco status: former smoker Alcohol intake: never Marital status: Physical Exam Const: COMMON NORMALS: patient oriented x3 and alert GENERAL APPEARANCE: cooperative and comfortable HENMT: COMMON NORMALS: normocephalic HEAD & SCALP: normocephalic MOUTH: Normal oral and palatal mucosa present THROAT: posterior oropharynx normal and uvula midline Neck/C-Spine: COMMON NORMALS: supple GENERAL: Yes normal visual inspection Resp: COMMON NORMALS: normal respiratory effort, No retractions, No use of accessory muscles and clear to auscultation bilaterally AUSCULTATION: clear to auscultation bilaterally Cardio: COMMON NORMALS: regular rate, regular rhythm, S1 normal heart sound present, S2 normal heart sound present, No gallops present (Cardio), No clicks present (Cardio), No murmurs present (Cardio) and Peripheral pulses 2+ throughout RATE: regular rate RHYTHM: regular rhythm HEART SOUNDS: S1 normal heart sound present and S2 normal heart sound present PERIPHERAL PULSES: Peripheral pulses 2+ throughout GI: COMMON NORMALS: Normal to inspection, nondistended, normoactive bowel sounds present, Soft to palpation, non-tender and no masses PALPATION: Yes Soft to palpation : COMMON NORMALS: Yes no CVA tenderness BLADDER/KIDNEY EXAM: Yes no CVA tenderness Back/Pelvis: COMMON NORMALS: no CVA tenderness Extremity: COMMON NORMALS: no calf tenderness NARRATIVE EXTREMITY EXAM: Right knee?ecchymosis and hematoma seen on medial aspect of knee. Neurovascular tact distally. GENERAL: Yes edema (Some 1+ pitting edema of her right lower leg.) Neuro: COMMON NORMALS: patient oriented x3 SENSORIUM/ORIENTATION: Yes alert GAIT: Yes Normal gait present Skin: GENERAL SKIN EXAM: dry skin Course Vital Signs: Vital signs: Vital Signs Temperature 98.0 F 08/08/22 13:13 Pulse Rate 80 08/08/22 13:13 Respiratory Rate 16 08/08/22 13:13 Blood Pressure 136/79 08/08/22 13:13 Pulse Oximetry 97 08/08/22 13:13 Oxygen Delivery Me thod 08/08/22 13:13 MDM - Extremity (Nontraumatic) Medical Decision Making Patient is a 72-year-old male who comes to the ED with right leg swelling. Several days ago patient was cutting some firewood and a piece of wood while kicked back from saw and hit his medial aspect of right knee and lower leg. He was seen in the ED on for this injury and diagnosed with a hematoma of lower limb but no x-rays were performed at that time. Patient is able to ambulate on leg normally. He is complaining of having some swelling in his right lower leg now. Denies any shortness of breath, chest pain or hemoptysis. Patient is on blood thinners. Vitals are stable. Exam shows ecchymosis and hematoma of right lower leg. X-ray of right knee showed no acute fractures or joint effusions. Ultrasound venous duplex of right lower extremity showed no DVTs or blood clots. Patient was diagnosed with hematoma lower limb and was stable for discharge home. Told to follow-up with his PCP in the next week for reevaluation. Continue to rest, ice and elevate leg as needed to help with swelling. Return to ED precautions given. Patient understood and agreed with plan. Lab Data Radiology Impressions Knee X-Ray 08/08/22 14:05 IMPRESSION: 1. No fracture or joint effusion noted. Discharge Plan Discharge Patient Disposition: Home Clinical Impression: Hematoma of lower limb Qualifiers: Encounter type: subsequent encounter Laterality: right Qualified Code(s): S80.11XD - Contusion of right lower leg, subsequent encounter Condition: Stable Prescriptions: No Action cholecalciferol (vitamin D3) 25 mcg (1,000 unit) capsule 25 mcg PO DAILY levothyroxine 100 mcg capsule 100 mcg PO DAILY aspirin [Adult Aspirin Regimen] 81 mg tablet,delayed release (DR/EC) 81 mg PO DAILY Hold Instructions: Resume on 02/20/22. tamsulosin 0.4 mg capsule 0.4 mg PO DAILY clopidogrel [Plavix] 75 mg tablet 75 mg PO DAILY Qty: 90 4RF Hold Instructions: Resume on 02/20/22. isosorbide mononitrate 30 mg tablet extended release 24 hr 30 mg PO DAILY Qty: 90 4RF metoprolol tartrate 25 mg tablet 12.5 mg PO BID Qty: 90 4RF Multi Vitamin 9 mg iron/15 mL Liquid 9 mg PO DAILY simvastatin 80 mg tablet 80 mg PO QPM Discharge Orders: Discharge ED (Routine); Ordered 08/08/22 Ordered By: Yoel Park Referrals: Andres Dickens NP [Primary Care Provider] - Discharge Diet: Regular Discharge Activity: Increase activity as tolerated Patient Instructions: Hematoma (ED) Activity Restrictions/Additional Instructions: Follow-up with medical provider as directed in the next 7 to 10 days for reevaluation. Continue to ice and elevate right leg to help with some of the swelling. Use Allen wrap to compress leg to help with swelling as well. Continue taking all home medications as prescribed. Return to the ER or your medical provider if condition worsens. Please read and understand discharge instructions. Thank you for choosing [facility] for your healthcare needs today. Please realize this is an emergency room and that we are providing you with a medical screening exam and this may not be complete and all inclusive of all the testing and or work up that you may need to determine your ailment or severity o f your illness. It is very important that you follow up as instructed or that you return to the Emergency Department should you have concerns or if your condition changes or worsens in any way. Coding Level of Care Code ED Drawbench Operator Helper for Wilian Velazquez Exam Comprehensive
== END 2022-08-08 17:04 | disposition home or self-care (01) ==
PROVIDERS: Emergency Provider Physician Assistant; PCP Nurse Practitioner Family
DX: S80.11XA Contusion of right lower leg, initial encounter (principal); Z79.82 Long term (current) use of aspirin; Z79.02 Long term (current) use of antithrombotics/antiplatelets; Z87.891 Personal history of nicotine dependence; I25.10 Atherosclerotic heart disease of native coronary artery without angina pectoris; E78.5 Hyperlipidemia, unspecified; I25.2 Old myocardial infarction; W20.8XXA Other cause of strike by thrown, projected or falling object, initial encounter
CPT/HCPCS: 73562; 93971; 99284

== ENCOUNTER → 2022-09-23 11:01 | Outpatient (BNVA) | payer MEDICARE, SELFPAY | PROVIDERS: PCP Nurse Practitioner Family; Visit Provider Internal Medicine Cardiovascular Disease | DX: I25.10 Atherosclerotic heart disease of native coronary artery without angina pectoris (principal); E78.5 Hyperlipidemia, unspecified; E03.9 Hypothyroidism, unspecified; Z87.891 Personal history of nicotine dependence | CPT/HCPCS: 99214 ==

== ENCOUNTER 2022-11-24 18:00 | Emergency (ER) | payer MEDICARE, SELFPAY ==
[2022-11-24 18:14] VITALS: BP 119/69; PULSE 73; RESP 16; TEMP 36.8; O2SAT 97
--- NOTE | 2022-11-24 18:20 | ECG_ITS ---
[facility] Test Date: 2022-11-24 Pat Name: Kasey Malone Jr Department: Room: Gender: Male Estate Planning Director: : 1950 Requested By: Esperanza Whitt Order Number: [id number] Ric MD: Berto Martins M.D. Measurements Intervals [place] Rate: 73 P: 58 NC: 164 QRS: 56 QRSD: 101 T: 21 QT: 369 QTc: 409 Interpretive Statements SINUS RHYTHM POSSIBLE RIGHT VENTRICULAR CONDUCTION DELAY [RSR (QR) IN V1/V2] INTERPRETATION BASED ON A DEFAULT AGE OF 40 YEARS Compared to ECG 03/13/2022 14:53:44 No significant changes Electronically Signed On 11-24-2022 23:44:31 CDT by Berto Martins M.D. [id number]
[2022-11-24 18:35] VITALS: BP 121/76; PULSE 75; RESP 18; O2SAT 96
--- NOTE | 2022-11-24 18:37 | XRR_ITS ---
PROCEDURE INFORMATION: Exam: XR Chest Exam date and time: 11/24/2022 6:52 PM Age: 72 years old Clinical indication: Pain; Chest pressure; Additional info: Chest pain, dyspnea TECHNIQUE: Imaging protocol: Radiologic exam of the chest. Views: 1 view. COMPARISON: CR XR chest 1V portable [id number] 03/13/2022 4:22 PM FINDINGS: Lungs: Left lower lobe atelectasis. Pleural spaces: Biapical pleural fibrosis. Heart/Mediastinum: Unremarkable. No cardiomegaly. Bones/joints: Unremarkable. XR/XR chest 1V portable [id number] IMPRESSION: 1. Left lower lobe atelectasis. 2. Biapical pleural fibrosis.
[2022-11-24 18:53] VITALS: O2SAT 96
--- NOTE | 2022-11-24 19:13 | ED_ITS ---
HPI - Chest Pain General: Chief Complaint: Chest Pain Stated Complaint: weakness,left side pain, dizziness Time Seen by Provider: 11/24/22 18:36 History of Present Illness: Patient presents to the ER with complaints of left-sided chest pain this morning, not feeling good all over since this morning, getting lightheaded and dizzy with vertigo when he stands. Patient does have cardiac stents, patient took a nitro with no relief, patient is chest pain-free at this time. Patient denies any fever chills cough cold MD complaint: chest heaviness and other (Vertigo) Pertinent past history: coronary artery disease Onset (ago): day(s) (Started this morning) Timing of current episode: episodic and now resolved Prior episodes: Yes Onset: during rest Pain location: left chest Pain radiation: none Severity: mild Relieving factors: nothing Exacerbating factors: other (Standing up because the vertigo to worsen) Associated symptoms: Reports no associated symptoms; Deny abdominal pain, dyspnea, nausea, palpitations or vomiting Review of Systems General: Reports: 10 or more systems reviewed and unremarkable except in HPI and below Eyes: Denies: change in vision or photophobia ENMT: Denies: throat pain or odynophagia Card: Reports: chest pain; Denies: palpitations, irregular heart rhythm or edema Resp: Denies: dyspnea, productive cough or non-productive cough GI: Denies: abdominal pain, nausea, vomiting or diarrhea : Denies: flank pain, difficulty urinating or dysuria Musc: Denies: neck pain or back pain Skin/Breast: Denies: rash or pruritus Neuro: Denies: headache(s), numbness in extremities or weakness in extremities Psych: Denies: anxiety or depression Endo: Denies: polyuria, polydipsia or tired all the time [place]/Lymph: Denies: easy bruising or easy bleeding PFSH ED PFSH: Medical History CAD (coronary artery disease) Cervical spondylosis 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 Erectile dysfunction Non-ST elevation LA (NSTEMI) Stable angina Surgical History History of cardiac cath CAD s/p stent to LAD and RCA in 2019 Hx of left inguinal hernia repair Family History Mother Dementia Hypertension CAD (coronary artery disease) Denies family history of Diabetes Clotting disorder Hyperlipidemia Psychiatric illness Chronic kidney disease (CKD) Suicide Anesthesia complication Bleeding disorder Family history of premature coronary artery disease Lung disease Cancer Stroke Social History Smoking and tobacco status: former smoker Alcohol intake: never Marital status: Physical Exam 2 Const: COMMON NORMALS: no acute distress, average body habitus, patient oriented x3, no limitations, healthy appearing, alert and well nourished HENMT: COMMON NORMALS: normocephalic, atraumatic, hearing grossly normal bilaterally, external ears normal, Normal external nose present and moist oral mucous membranes HEAD & SCALP: normocephalic and atraumatic NOSE: Normal external nose present EXTERNAL EAR: Yes external ears normal Eye: COMMON NORMALS: Equal, round and reactive pupils present, EOMs intact bilaterally, conjunctivae normal and no scleral icterus CONJUNCTIVA: Yes conjunctivae normal PUPIL: Yes Equal, round and reactive pupils present Neck/C-Spine: COMMON NORMALS: full ROM, no lymphadenopathy, supple, no meningeal signs, no JVD and Thyroid normal THYROID: Thyroid normal Chest: COMMONS NORMALS: normal inspection of the chest and normal palpation of entire chest wall Resp: COMMON NORMALS: normal respiratory effort, No retractions, No use of accessory muscles and clear to auscultation bilaterally AUSCULTATION: clear to auscultation bilaterally Cardio: COMMON NORMALS: no JVD GI: COMMON NORMALS: Normal to inspection, nondistended, normoactive bowel sounds present, Soft to palpation, non-tender, No hepatosplenomegaly present and no masses PALPATION: Yes Soft to palpation and Yes No hepatosplenomegaly present : COMMON NORMALS: Yes no CVA tenderness BLADDER/KIDNEY EXAM: Yes no CVA tenderness Back/Pelvis: COMMON NORMALS: no CVA tenderness Extremity: COMMON NORMALS: normal to inspection Neuro: COMMON NORMALS: patient oriented x3, CN's II-XII intact bilaterally, moves all extremities, no focal motor deficits and no sensory deficits noted SENSORIUM/ORIENTATION: Yes alert MENINGEAL SIGNS: Yes no meningeal signs Course Vital Signs: Vital signs: Vital Signs Temperature 98.2 F 11/24/22 18:14 Pulse Rate 67 11/24/22 20:01 Respiratory Rate 18 11/24/22 20:01 Blood Pressure 116/70 11/24/22 20:01 Pulse Oximetry 97 11/24/22 20:01 Oxygen Delivery Me thod 11/24/22 20:01 MDM - Chest Pain Medical Decision Making Patient presents to the ER with complaints of chest pain this morning, shortness of breath on exertion and just not feeling good overall. Patient is chest pain- free upon arrival to the ER and during his stay. Patient does have a history of coronary artery disease with cardiac stents. Patient does have a follow-up with his family practice doctor tomorrow already. Serial lab work was obtained as well as EKGs and chest x-ray all of which was unremarkable with a delta troponin of 0. Urine was obtained on the patient which did have trace leukocyte Estrace with 5-10 white blood cells and 1+ bacteria. All this was explained to the patient. We will wait for his urine culture to come out and see if it grows any bacteria. Otherwise he will be discharged home to keep his appointment with his family practice doc tomorrow. Differential Diagnosis Unlikely acute massive pulmonary embolism, acute respiratory failure, acute myocardial infarction, cardiac arrest or sudden cardiac Lab Data 11/24/22 18:45 11/24/22 18:45 Radiology Impressions Chest X-Ray 11/24/22 18:37 IMPRESSION: 1. Left lower lobe atelectasis. 2. Biapical pleural fibrosis. Laboratory Results WBC 5.9 10^3/uL (4.0-10.0) 11/24/22 18:45 RBC 4.56 10^6/uL (4.1-5.3) 11/24/22 18:45 Hgb 14.1 g/dL (11.7-16.6) 11/24/22 18:45 Hct 42.9 % (42.0-52.0) 11/24/22 18:45 MCV 94.1 fl (80-94) H 11/24/22 18:45 MCH 30.9 pg (28.0-34.0) 11/24/22 18:45 MCHC 32.9 g/dL (30.0-36.0) 11/24/22 18:45 RDW 13.2 % (12.1-15.1) 11/24/22 18:45 Plt Count 163 10^3/cmm (130-400) 11/24/22 18:45 MPV 10.7 fL (7.4-10.4) H 11/24/22 18:45 Neut % (Auto) 45.9 % 11/24/22 18:45 Lymph % (Auto) 38.9 % 11/24/22 18:45 [place] % (Auto) 10.5 % 11/24/22 18:45 Eos % (Auto) 3.7 % 11/24/22 18:45 Baso % (Auto) 0.8 % 11/24/22 18:45 Neut # (Auto) 2.71 10^3/uL (1.8-7.7) 11/24/22 18:45 Lymph # (Auto) 2.3 10^3/uL (0.8-4.8) 11/24/22 18:45 [place] # (Auto) 0.6 10^3/uL (0.2-0.9) 11/24/22 18:45 Eos # (Auto) 0.2 10^3/uL (0.0-0.8) 11/24/22 18:45 Baso # (Auto) 0.1 10^3/uL (0.0-0.1) 11/24/22 18:45 Nucleated RBC % (auto) 0 % 11/24/22 18:45 Nucleated RBCs # 0.0 /100WBC 11/24/22 18:45 PT 12.60 SECONDS (12.1-14.9) 11/24/22 18:45 INR 0.92 (0.8-1.2) 11/24/22 18:45 Sodium 134 mmol/L (136-145) L 11/24/22 18:45 Potassium 4.0 mmol/L (3.5-5.1) 11/24/22 18:45 Chloride 100 mmol/L (98-107) 11/24/22 18:45 Carbon Dioxide 26 mmol/L (22-29) 11/24/22 18:45 Anion Gap 12.0 (5-19) 11/24/22 18:45 BUN 16 mg/dL (8-23) 11/24/22 18:45 Creatinine 0.8 mg/dL (0.7-1.2) 11/24/22 18:45 GFR Calculation Not Reportable 11/24/22 18:45 Glucose 84 mg/dL (65-115) 11/24/22 18:45 Calculated Osmolality 278 mOsm/kg (285-295) L 11/24/22 18:45 Calcium 9.4 mg/dL (8.5-10.5) 11/24/22 18:45 Total Bilirubin 1.0 mg/dL (0.15-1.2) 11/24/22 18:45 AST 28 U/L (0-40) 11/24/22 18:45 ALT 26 U/L (0-41) 11/24/22 18:45 Alkaline Phosphatase 95 U/L (40-130) 11/24/22 18:45 Troponin T Baseline 6 ng/L (0-15) 11/24/22 18:45 Troponin T 120 Minute 6.00 ng/L (0-15) 11/24/22 20:20 Delta Troponin T 0 ABS# (0-10) 11/24/22 20:20 NT-Pro-B Natriuret Pep 103 pg/mL (0-125) 11/24/22 18:45 Total Protein 6.6 g/dL (6.6-8.7) 11/24/22 18:45 Albumin 4.2 g/dL (3.5-5.2) 11/24/22 18:45 Globulin 2.4 g/dL (1.3-4.6) 11/24/22 18:45 Urine Color Yellow (Yellow) 11/24/22 19:57 Urine Appearance Hazy (CLEAR) A 11/24/22 19:57 Urine pH 5 (5-7) 11/24/22 19:57 Ur Specific [place] 1.030 (1.005-1.030) 11/24/22 19:57 Urine Protein Neg (Negative) 11/24/22 19:57 Urine Glucose (UA) Norm (Normal) 11/24/22 19:57 Urine Ketones Negative (Negative) 11/24/22 19:57 Urine Blood Neg (Negative) 11/24/22 19:57 Urine Nitrate Negative (Negative) 11/24/22 19:57 Urine Bilirubin Neg (Negative) 11/24/22 19:57 Urine Urobilinogen 1 mg/dL (Negative) H 11/24/22 19:57 Ur Leukocyte Esterase Trace (Negative) H 11/24/22 19:57 Urine RBC None /hpf (0-2) 11/24/22 19:57 Urine WBC 5-10 /hpf (0-5) H 11/24/22 19:57 Ur Squamous Epith Cells None /hpf (0-5) 11/24/22 19:57 Calcium Oxalate Crystal 25-40 /hpf H 11/24/22 19:57 Amorphous Sediment Not Reportable 11/24/22 19:57 Urine Bacteria 1+ /hpf (NONE) H 11/24/22 19:57 Urine Mucus 3+ /hpf 11/24/22 19:57 Discharge Plan Discharge Patient Disposition: Home Clinical Impression: Atypical chest pain, Fatigue, Vertigo Condition: Stable Prescriptions: No Action cholecalciferol (vitamin D3) 25 mcg (1,000 unit) capsule 25 mcg PO DAILY levothyroxine 100 mcg capsule 100 mcg PO DAILY aspirin [Adult Aspirin Regimen] 81 mg tablet,delayed release (DR/EC) 81 mg PO DAILY Hold Instructions: Resume on 02/20/22. tamsulosin 0.4 mg capsule 0.4 mg PO DAILY isosorbide mononitrate 30 mg tablet extended release 24 hr 30 mg PO DAILY Qty: 90 4RF metoprolol tartrate 25 mg tablet 12.5 mg PO BID Qty: 90 1RF nitroglycerin 0.4 mg tablet, sublingual 0.4 mg sublingual Q5M PRN (Reason: chest pain) Qty: 25 3RF Rx Instructions: do not exceed 3 doses per episode simvastatin 80 mg tablet 80 mg PO QPM Qty: 90 2RF clopidogrel [Plavix] 75 mg tablet 75 mg PO DAILY Qty: 90 1RF Hold Instructions: Resume on 02/20/22. Multi Vitamin 9 mg iron/15 mL Liquid 9 mg PO DAILY Discharge Orders: Discharge ED (Routine); Ordered 11/24/22 Ordered By: Willi Allen Referrals: Andres Dickens NP [Primary Care Provider] - 1 week Patient Instructions: Chest Pain (ED), Fatigue (ED), Vertigo (ED) Activity Restrictions/Additional Instructions: Please keep your follow-up with your primary care practitioner tomorrow as previously scheduled. We will await and see if your urine culture grows out any bacteria that would be suggestive of a urinary tract infection. Coding Level of Care Code ED Inspector Plug Seam for Wilian Velazquez
[2022-11-24 19:29] LABS: Basophils # 0.1 10^3/uL (0.0-0.1); Basophils % 0.8 %; Eosinophils # 0.2 10^3/uL (0.0-0.8); Eosinophils % 3.7 %; Hematocrit 42.9 % (42.0-52.0); Hemoglobin 14.1 g/dL (11.7-16.6); Lymphocytes # 2.3 10^3/uL (0.8-4.8); Lymphocytes % 38.9 %; Mean Corpuscular HGB Conc 32.9 g/dL (30.0-36.0); Mean Corpuscular Hemoglobin 30.9 pg (28.0-34.0); Mean Corpuscular Volume 94.1 fl (80-94); Mean Platelet Volume 10.7 fL (7.4-10.4); Monocytes # 0.6 10^3/uL (0.2-0.9); Monocytes % 10.5 %; Neutrophils # 2.71 10^3/uL (1.8-7.7); Neutrophils % 45.9 %; Nucleated Red Blood Cells % 0 %; Platelet Count 163 10^3/cmm (130-400); Red Blood Count 4.56 10^6/uL (4.1-5.3); Red Cell Distribution Width 13.2 % (12.1-15.1); White Blood Count 5.9 10^3/uL (4.0-10.0)
[2022-11-24 19:51] LABS: INR 0.92 (0.8-1.2)
[2022-11-24 19:54] LABS: Troponin(5th) Baseline 6 ng/L (0-15)
[2022-11-24 20:01] VITALS: BP 116/70; PULSE 67; RESP 18; O2SAT 97
[2022-11-24 20:06] LABS: Alanine Aminotransferase 26 U/L (0-41); Albumin Level 4.2 g/dL (3.5-5.2); Alkaline Phosphatase 95 U/L (40-130); Aspartate Amino Transferase 28 U/L (0-40); Blood Urea Nitrogen 16 mg/dL (8-23); Calcium 9.4 mg/dL (8.5-10.5); Carbon Dioxide 26 mmol/L (22-29); Chloride 100 mmol/L (98-107); Globulin 2.4 g/dL (1.3-4.6); Glucose 84 mg/dL (65-115); NT Pro B Type Natriuretic Pept 103 pg/mL (0-125); Osmolality Calculated 278 mOsm/kg (285-295); Sodium 134 mmol/L (136-145); Total Protein 6.6 g/dL (6.6-8.7)
[2022-11-24 20:19] LABS: Add Urine Microscopic? YES; Bilirubin Urine Neg (Negative); Blood Urine Neg (Negative); Glucose Urine UA Norm (Normal); Ketones Urine Negative (Negative); Leukocyte Esterase Urine Trace (Negative); Nitrate Urine Negative (Negative); Protein Urine Neg (Negative); Urine Appearance Hazy (CLEAR); Urine Color Yellow (Yellow); Urobilinogen Urine 1 mg/dL (Negative); pH Urine 5 (5-7)
[2022-11-24 20:20] LABS: Bacteria Urine 1+ /hpf; Calcium Oxalate Crystals Urine 25-40 /hpf; Mucus Urine 3+ /hpf
[2022-11-24 20:22] LABS: Add Urine Culture? No
[2022-11-24 20:56] LABS: Troponin 5 2HR Delta 0 ABS# (0-10)
== END 2022-11-24 21:45 | disposition home or self-care (01) ==
PROVIDERS: Emergency Provider Emergency Medicine; PCP Nurse Practitioner Family
DX: R07.89 Other chest pain (principal); R53.83 Other fatigue; R42 Dizziness and giddiness; Z95.5 Presence of coronary angioplasty implant and graft; I25.10 Atherosclerotic heart disease of native coronary artery without angina pectoris; Z87.891 Personal history of nicotine dependence
CPT/HCPCS: 71045; 80053; 81001; 83880; 84484; 85025; 85610; 93005; 99285

== ENCOUNTER 2023-03-05 13:37 | Observation (INO) | payer MEDICARE, SELFPAY ==
[2023-03-05] VITALS (16 sets, daily range): BP systolic 110–156; BP diastolic 72–93; PULSE 63–94; RESP 12–18; TEMP 36.3; O2SAT 92–98
--- NOTE | 2023-03-05 13:48 | ECG_ITS ---
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 Measurements Intervals [place] Rate: 81 P: 61 LA: 159 QRS: 53 QRSD: 106 T: 9 QT: 375 QTc: 436 Interpretive Statements SINUS RHYTHM POSSIBLE RIGHT VENTRICULAR CONDUCTION DELAY [RSR (QR) IN V1/V2] Compared to ECG 11/24/2022 18:20:11 No significant changes Electronically Signed On 03-05-2023 16:23:57 CDT by Cyn Ngo M.D. [email or web address] ([email or web address]) montgomery va medical centerDFT Microsystemsscci hospital [facility].[employer]/store/NU/[id number] f
--- NOTE | 2023-03-05 14:42 | XR_ITS ---
WS: [id number] Exam: XR chest 1V portable [id number] Date/Time of Exam: 03/05/2023 2:42 PM Reason For Exam: chest pain Comparison 11/24/2022. The lungs are clear and fully expanded. Normal cardiomediastinal silhouette. Bilateral apical pleural thickening. No pleural effusions. Bony structures are unremarkable. Monitoring leads superimpose the chest. XR/XR chest 1V portable [id number] IMPRESSION: 1. No acute cardiopulmonary finding.
--- NOTE | 2023-03-05 14:50 | PC.NURSE ---
Pt hooked up to continuous bedside cardiac monitoring.
[2023-03-05 14:54] LABS: Basophils # 0.1 10^3/uL (0.0-0.1); Eosinophils # 0.2 10^3/uL (0.0-0.8); Hematocrit 43.6 % (42.0-52.0); Hemoglobin 14.2 g/dL (11.7-16.6); Lymphocytes # 2.2 10^3/uL (0.8-4.8); Lymphocytes % 37.5 %; Mean Corpuscular HGB Conc 32.6 g/dL (30.0-36.0); Mean Corpuscular Hemoglobin 30.4 pg (28.0-34.0); Mean Corpuscular Volume 93.4 fl (80-94); Mean Platelet Volume 10.1 fL (7.4-10.4); Monocytes # 0.5 10^3/uL (0.2-0.9); Monocytes % 8.2 %; Neutrophils # 2.99 10^3/uL (1.8-7.7); Nucleated Red Blood Cells % 0 %; Platelet Count 171 10^3/cmm (130-400); Red Blood Count 4.67 10^6/uL (4.1-5.3); Red Cell Distribution Width 13.4 % (12.1-15.1)
--- NOTE | 2023-03-05 14:54 | ECG_ITS ---
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 Measurements Intervals [place] Rate: 71 P: 57 [place]: 165 QRS: 44 QRSD: 105 T: 14 QT: 394 QTc: 429 Interpretive Statements SINUS RHYTHM POSSIBLE RIGHT VENTRICULAR CONDUCTION DELAY [RSR (QR) IN V1/V2] Compared to ECG 11/24/2022 18:20:11 No significant changes Electronically Signed On 03-05-2023 16:22:51 CDT by Cyn Ngo M.D. [id number]
[2023-03-05 15:06] LABS: INR 0.93 (0.8-1.2)
[2023-03-05] MEDS: ondansetron 2 mg/ML SDV 2 mL 4 MG IVP (15:06)
[2023-03-05] MEDS: morphine 4 mg/mL SDV 1 mL 2 MG IVP (15:06)
[2023-03-05 15:07] LABS: Partial Thromboplastin Time 28.2 SECONDS (23.9-36.7)
[2023-03-05] MEDS: aspirin 81 mg Chew Tablet 324 MG PO (15:07)
[2023-03-05] MEDS: nitroglycerin 1 gm/inch oint Pkt 0.5 INCH TOPICAL (15:07)
[2023-03-05 15:14] LABS: Troponin(5th) Baseline 6 ng/L (0-15)
[2023-03-05 15:15] LABS: Alanine Aminotransferase 31 U/L (0-41); Albumin Level 4.7 g/dL (3.5-5.2); Alkaline Phosphatase 108 U/L (40-130); Anion Gap 13.5 (5-19); Aspartate Amino Transferase 28 U/L (0-40); Blood Urea Nitrogen 14 mg/dL (8-23); Calcium 9.3 mg/dL (8.5-10.5); Carbon Dioxide 27 mmol/L (22-29); Chloride 104 mmol/L (98-107); Globulin 2.1 g/dL (1.3-4.6); Glucose 84 mg/dL (65-115); Osmolality Calculated 290 mOsm/kg (285-295); Potassium 4.5 mmol/L (3.5-5.1); Sodium 140 mmol/L (136-145); Total Bilirubin 1.4 mg/dL (0.15-1.2); Total Protein 6.8 g/dL (6.6-8.7)
--- NOTE | 2023-03-05 15:44 | W.ED.CHESTPA ---
HPI - Chest Pain General: Chief Complaint: Chest Pain Stated Complaint: Chest Pain, Numbness on left side Time Seen by Provider: 03/05/23 14:29 History of Present Illness: 72-year-old occasion male presented emergency room with history of coronary disease with 2 stents, hypertension and hyperlipidemia. Presents emergency room with his due to chest pain that started few hours ago while patient was installing fence post. Patient described the pain as sharp sensation with severity of 9 out of 10 radiating to his left shoulder. Patient took 2 nitro prior to come to the emergency room and his pain subsided to 4 out of 10. Patient has any shortness of breath, cough, coughing up blood or vomiting blood. No nausea, vomiting or sweating at this time. Associated symptoms: Deny palpitations or syncope Review of Systems General: Reports: 10 or more systems reviewed and unremarkable except in HPI and below Card: Reports: chest pain; Denies: palpitations, irregular heart rhythm, swelling of feet/ankles, lightheadedness, syncope, pre-syncope, dyspnea on exertion, orthopnea, leg pain with exertion or acrocyanosis Neuro: Denies: headache(s), numbness in extremities, weakness in extremities, sensory changes, lack of coordination or difficulty walking PFSH ED PFSH: Medical History (Updated 03/07/23 @ 00:02 by CARMELITA John) CAD (coronary artery disease) Cervical spondylosis 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 Non-ST elevation [place] (NSTEMI) Pain management contract signed Stable angina Surgical History History of cardiac cath CAD s/p stent to LAD and RCA in 2019 Hx of left inguinal hernia repair Family History Mother Dementia Hypertension CAD (coronary artery disease) Denies family history of Diabetes Clotting disorder Hyperlipidemia Psychiatric illness Chronic kidney disease (CKD) Suicide Anesthesia complication Bleeding disorder Family history of premature coronary artery disease Lung disease Cancer Stroke Social History Smoking and tobacco status: former smoker Alcohol intake: never Substance/Drug Use: never Marital status: Physical Exam Const: COMMON NORMALS: no acute distress, average body habitus, patient oriented x3, no limitations, healthy appearing, alert and well nourished Neck/C-Spine: COMMON NORMALS: full ROM, no lymphadenopathy, supple, no meningeal signs, no JVD, Thyroid normal and No carotid bruits THYROID: Thyroid normal Lymph: LYMPHATIC: no lymphadenopathy noted Chest: COMMONS NORMALS: normal inspection of the chest, normal palpation of entire chest wall, normal inspection of the breasts and normal palpation of the breasts Breast/axilla inspection: Yes normal inspection of the breasts BREAST/AXILLA PALPATION: Yes normal palpation of the breasts Resp: COMMON NORMALS: normal respiratory effort, No retractions, No use of accessory muscles, clear to auscultation bilaterally and percussion normal AUSCULTATION: clear to auscultation bilaterally PERCUSSION: percussion normal Cardio: COMMON NORMALS: no JVD, regular rate, regular rhythm, S1 normal heart sound present, S2 normal heart sound present, No gallops present (Cardio), No clicks present (Cardio), No murmurs present (Cardio), No rub (Cardio) and Peripheral pulses 2+ throughout RATE: regular rate RHYTHM: regular rhythm HEART SOUNDS: S1 normal heart sound present and S2 normal heart sound present PERIPHERAL PULSES: Peripheral pulses 2+ throughout Neuro: COMMON NORMALS: patient oriented x3 SENSORIUM/ORIENTATION: Yes alert MENINGEAL SIGNS: Yes no meningeal signs Course Reevaluation(s): Reevaluation #1: Upon reassessment patient is resting comfortably without any pain. Patient reports that the Nitropaste resolved his pain completely. Consultations: Consultation #1: Discussed patient with the hospitalist. We decided to admit patient for observation. Vital Signs: Vital signs: Vital Signs Temperature 97.1 F L 03/06/23 15:47 Pulse Rate 87 03/06/23 15:47 Respiratory Rate 18 03/06/23 15:47 Blood Pressure 112/63 03/06/23 15:47 Pulse Oximetry 93 03/06/23 15:47 Oxygen Delivery Me thod Room Air 03/06/23 12:00 MDM - Chest Pain Medical Decision Making Patient was made comfortable emergency room, patient have extensive work-up including x-ray, blood work, EKG was given aspirin nitro and his pain subsided significantly. Given his medical history and his presenting symptoms patient will be admitted for further evaluation and treatment. Patient with the hospitalist. Disposition plan with . Differential Diagnosis Likely acute massive pulmonary embolism, acute respiratory failure, acute myocardial infarction, cardiac arrest and sudden cardiac Lab Data 03/06/23 05:05 03/06/23 05:05 Radiology Impressions Chest X-Ray 03/05/23 14:42 IMPRESSION: 1. No acute cardiopulmonary finding. Abdomen Ultrasound 03/06/23 08:38 IMPRESSION: 1. Mild hepatomegaly. 2. A few lobulated simple appearing hepatic cysts the largest measuring 1.9 x 1.5 x 2.3 CM. 3. Small shadowing gallbladder calculus measuring 4.4 mm. No gallbladder wall thickening or pericholecystic fluid. 4. Normal common bile duct. 5. No hydronephrosis in RIGHT kidney. Laboratory Results WBC 6.0 10^3/uL (4.0-10.0) 03/05/23 14:46 RBC 4.67 10^6/uL (4.1-5.3) 03/05/23 14:46 Hgb 14.2 g/dL (11.7-16.6) 03/05/23 14:46 Hct 43.6 % (42.0-52.0) 03/05/23 14:46 MCV 93.4 fl (80-94) 03/05/23 14:46 MCH 30.4 pg (28.0-34.0) 03/05/23 14:46 MCHC 32.6 g/dL (30.0-36.0) 03/05/23 14:46 RDW 13.4 % (12.1-15.1) 03/05/23 14:46 Plt Count 171 10^3/cmm (130-400) 03/05/23 14:46 MPV 10.1 fL (7.4-10.4) 03/05/23 14:46 Neut % (Auto) 50.0 % 03/05/23 14:46 Lymph % (Auto) 37.5 % 03/05/23 14:46 [place] % (Auto) 8.2 % 03/05/23 14:46 Eos % (Auto) 3.0 % 03/05/23 14:46 Baso % (Auto) 1.0 % 03/05/23 14:46 Neut # (Auto) 2.99 10^3/uL (1.8-7.7) 03/05/23 14:46 Lymph # (Auto) 2.2 10^3/uL (0.8-4.8) 03/05/23 14:46 [place] # (Auto) 0.5 10^3/uL (0.2-0.9) 03/05/23 14:46 Eos # (Auto) 0.2 10^3/uL (0.0-0.8) 03/05/23 14:46 Baso # (Auto) 0.1 10^3/uL (0.0-0.1) 03/05/23 14:46 Nucleated RBC % (auto) 0 % 03/05/23 14:46 Nucleated RBCs # 0.0 /100WBC 03/05/23 14:46 PT 12.80 SECONDS (12.1-14.9) 03/05/23 14:46 INR 0.93 (0.8-1.2) 03/05/23 14:46 APTT 28.2 SECONDS (23.9-36.7) 03/05/23 14:46 D-Dimer 0.39 ug/mIFEU (0-0.59) 03/05/23 14:44 Sodium 140 mmol/L (136-145) 03/05/23 14:46 Potassium 4.5 mmol/L (3.5-5.1) 03/05/23 14:46 Chloride 104 mmol/L (98-107) 03/05/23 14:46 Carbon Dioxide 27 mmol/L (22-29) 03/05/23 14:46 Anion Gap 13.5 (5-19) 03/05/23 14:46 BUN 14 mg/dL (8-23) 03/05/23 14:46 Creatinine 0.8 mg/dL (0.7-1.2) 03/05/23 14:46 GFR Calculation Not Reportable 03/05/23 14:46 Glucose 84 mg/dL (65-115) 03/05/23 14:46 Calculated Osmolality 290 mOsm/kg (285-295) 03/05/23 14:46 Calcium 9.3 mg/dL (8.5-10.5) 03/05/23 14:46 Total Bilirubin 1.4 mg/dL (0.15-1.2) H 03/05/23 14:46 AST 28 U/L (0-40) 03/05/23 14:46 ALT 31 U/L (0-41) 03/05/23 14:46 Alkaline Phosphatase 108 U/L (40-130) 03/05/23 14:46 Troponin T Baseline 6 ng/L (0-15) 03/05/23 14:46 Troponin T 120 Minute 6.00 ng/L (0-15) 03/05/23 16:47 Delta Troponin T 0 ABS# (0-10) 03/05/23 16:47 Total Protein 6.8 g/dL (6.6-8.7) 03/05/23 14:46 Albumin 4.7 g/dL (3.5-5.2) 03/05/23 14:46 Globulin 2.1 g/dL (1.3-4.6) 03/05/23 14:46 EKG Data EKG 1: Interpretation: Sinus rhythm rate of [address] changes. CT interval 165 QT 394 Discharge Plan Discharge Patient Disposition: Placed in Observation Admit Provider: Socrates Nam Clinical Impression: Stable angina, Pneumothorax Discharge Diet: Cardiac, Low Cholesterol and Low Fat Discharge Activity: Increase activity as tolerated and Limit activity as instructed Coding Level of Care Code ED Employee Relations Consultant for Wilian Velazquez
[2023-03-05 17:37] LABS: Troponin 5 2HR Delta 0 ABS# (0-10)
--- NOTE | 2023-03-05 18:18 | P.HP_ITS ---
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 His gave him several nitroglycerin and he came to ER for evaluation. Nitropaste applied in ER. Pain initially decreased from 10/10 to 5/10. Currently is resolved. Review of Systems Const: Denies: fever(s), chills, body aches or malaise ENMT: Denies: throat pain Card: Reports: chest pain; Denies: edema, pre-syncope or dyspnea on exertion Resp: Denies: dyspnea, productive cough, change in phlegm color or hemoptysis GI: Denies: abdominal pain, nausea, vomiting, diarrhea, constipation, hematochezia or melena : Denies: flank pain, difficulty urinating, urinary frequency or hematuria Musc: Denies: back pain, joint swelling or joint redness Skin/Breast: Denies: rash or new lesions Neuro: Denies: headache(s), numbness in extremities, weakness in extremities, dizziness, confusion or seizure-like activity Medications/Allergies Home Medications Medication Instructions Recorded Confirmed Last Taken Type aspirin 81 mg tablet,delayed 81 mg PO QAM 09/28/19 03/05/23 03/05/23 07:00 History release (Adult Aspirin Regimen) tamsulosin 0.4 mg capsule 0.4 mg PO BEDTIME 01/27/20 03/05/23 03/04/23 History cholecalciferol (vitamin D3) 25 25 mcg PO QAM 07/22/21 03/05/23 03/05/23 07:00 History mcg (1,000 unit) capsule nitroglycerin 0.4 mg sublingual 0.4 mg sublingual Q5M PRN chest 10/16/22 03/05/23 03/05/23 Rx tablet pain #25 tabs clopidogrel 75 mg tablet (Plavix) 75 mg PO QAM 03/05/23 03/05/23 03/05/23 07:00 History isosorbide mononitrate 30 mg 30 mg PO QAM 03/05/23 03/05/23 03/05/23 07:00 History tablet,extended release 24 hr levothyroxine 100 mcg tablet 100 mcg PO QAM 03/05/23 03/05/23 03/05/23 07:00 History metoprolol tartrate 25 mg tablet 12.5 mg PO BID@07,16 03/05/23 03/05/23 03/05/23 07:00 History multivitamin 1 tab PO QAM 03/05/23 03/05/23 03/05/23 History simvastatin 80 mg tablet 80 mg PO BEDTIME 03/05/23 03/05/23 03/04/23 History Allergies Allergy/AdvReac Type Severity Reaction Status Date / Time oxycodone Allergy Unknown head Verified 03/05/23 13:51 spinning tramadol Allergy head Verified 03/05/23 13:51 spinning PFSH Acute PFSH: Medical History (Updated 03/05/23 @ 18:23 by Socrates Nam MD) CAD (coronary artery disease) Cervical spondylosis 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 Erectile dysfunction nursing home (current) use of opiate analgesic Non-ST elevation [place] (NSTEMI) Pain management contract signed Stable angina Surgical History History of cardiac cath CAD s/p stent to LAD and RCA in 2019 Hx of left inguinal hernia repair Family History Mother Dementia Hypertension CAD (coronary artery disease) Denies family history of Diabetes Clotting disorder Hyperlipidemia Psychiatric illness Chronic kidney disease (CKD) Suicide Anesthesia complication Bleeding disorder Family history of premature coronary artery disease Lung disease Cancer Stroke Social History Smoking and tobacco status: former smoker Alcohol intake: never Substance/Drug Use: never Marital status: Vitals/I&O/Wt Last Vital Signs Pulse 64 03/05/23 17:00 Resp 12 03/05/23 16:30 BP 136/85 03/05/23 17:00 Pulse Ox 97 03/05/23 17:00 O2 Del Method Room Air 03/05/23 14:59 Weight last 48 hrs Weight 77.111 kg Physical Exam Const: COMMON NORMALS: patient oriented x3 and alert GENERAL APPEARANCE: cooperative ORIENTATION/CONSCIOUSNESS: Yes awake HENMT: COMMON NORMALS: oropharynx normal Neck/C-Spine: COMMON NORMALS: no JVD Resp: COMMON NORMALS: normal respiratory effort and clear to auscultation bilaterally AUSCULTATION: clear to auscultation bilaterally Cardio: COMMON NORMALS: no JVD, regular rhythm, S1 normal heart sound present, S2 normal heart sound present and No murmurs present (Cardio) RHYTHM: regular rhythm HEART SOUNDS: S1 normal heart sound present and S2 normal heart sound present GI: COMMON NORMALS: Normal to inspection, nondistended, normoactive bowel sounds present, Soft to palpation and non-tender PALPATION: Yes Soft to palpation Extremity: COMMON NORMALS: no joint enlargement and no pedal edema Neuro: COMMON NORMALS: patient oriented x3 and moves all extremities SENSORIUM/ORIENTATION: Yes alert Skin: COMMON NORMALS: no rashes or lesions noted GENERAL SKIN EXAM: no rashes or lesions noted Data 03/05/23 14:46 03/05/23 14:46 A&P Assessment and plan (1) Chest pain: Assess possible acute [place] in a gentleman with known underlying CAD, stenting x2 in the past. At risk of myocardial infarction and complications. Chest pain after exertion outdoors rating to left arm, left arm numbness. Patient responsive to nitroglycerin. History of CAD with stenting x2. Vital signs unremarkable. Otherwise lab work-up in ER unremarkable with chest x-ray without acute findings. Normal CBC, normal coagulation study. D-dimer requested and pending. Unremarkable CMP apart from some chronic variable elevation of T. bili. Currently 1.4. No abdominal or upper quadrant pain. He denies any pain on inspiration, pain on movement or palpation. High-sensitivity troponin baseline and 2 hours remains normal. EKG on my review without findings suggestive of acute ischemia. He states does get somewhat out of energy with exertion, but otherwise denies any orthopnea, PND, lower extremity edema, or other symptoms of CHF. Saturation 99% on room air at rest. Received aspirin. Continue aspirin, Plavix, beta-dennys, statin. Monitor on telemetry. Nitroglycerin as needed, morphine for severe pain as needed. TTE. Stress test in the morning. Check CK for possible rhabdo Qualifiers: Chest pain type: unspecified Qualified Code(s): R07.9 - Chest pain, unspecified Plan Discussed with ER physician. ER record reviewed. Attestations Medical Necessity Statement*: Place in observation for additional assessment and management of episode of ac gewndolyn chest pain and gentleman with underlying Diagnoses Chest pain R07.9 Chest pain type: unspecified
[2023-03-05 18:27] LABS: D Dimer 0.39 ug/mIFEU (0-0.59)
--- NOTE | 2023-03-05 18:28 | USCV_ITS ---
Kasey Malone Jr Age: 72 Gender: M : 1950 Exam Date: 03/05/2023 01:08 Ordering Phys: Socrates Nam MD Technologist: ANEL [place] [facility] [place]: chest pain. history of CAD s/p 2 cardiac stents 2018, c/o fatigue. History of HTN, HL BP: 126 / 93 HR: 66 Rhythm: Sinus Technical Quality: Adequate MEASUREMENTS (Male / Female) Normal Values 2D ECHO LV Diastolic Diameter PLAX 4.4 cm 4.2 - 5.9 / 3.9 - 5.3 cm LV Systolic Diameter PLAX 3.0 cm IVS Diastolic Thickness 1.2 cm 0.6 - 1.0 / 0.6 - 0.9 cm IVS Systolic Thickness 1.3 cm LVPW Diastolic Thickness 1.3 cm 0.6 - 1.0 / 0.6 - 0.9 cm LVPW Systolic Thickness 1.2 cm LVOT Diameter 1.8 cm LV Ejection Fraction 2D Teich 59.1 % LV Ejection Fraction MOD 2C 58.2 % LV Ejection Fraction 2C AL 60.5 % LA Diameter 3.6 cm LA Width 3.9 cm LA Height 4.6 cm RA Width 3.5 cm RA Height 3.9 cm Aorta at Sinotubular Diameter 2.8 cm IVC Diameter 2.0 cm M-MODE Aortic Annulus Diameter 2.9 cm LA Ao Ratio MM 1.2 MV E Point Septal Separation 0.5 cm DOPPLER AV Peak Velocity 90.0 cm/s LVOT Peak Velocity 98.0 cm/s AV Area Cont Eq vti 2.6 cm squared AV Area Cont Eq pk 2.6 cm squared MV Peak Velocity 94.0 cm/s MV Area PHT 5.0 cm squared Mitral E to A Ratio 1.1 MV E' Velocity 50.5 cm/s Mitral E to MV E' Ratio 11.2 Mitral E to LV E' Lateral Ratio 9.4 Mitral E to LV E' Septal Ratio 13.9 TR Peak Velocity 235.3 cm/s TR Peak Gradient 22.2 mmHg TV Peak E Velocity 49.0 cm/s Right Atrial Pressure 5.0 mmHg Pulmonary Artery Systolic Pressu 27.2 mmHg PV Peak Velocity 84.0 cm/s RV Acceleration Time 0.1 s RV Ejection Time 0.4 s RV AcT/ET 0.3 FINDINGS Left Ventricle Normal left ventricular size, systolic function and wall thickness, with no regional wall motion abnormalities. Grade I/IV diastolic dysfunction (abnormal relaxation filling pattern), normal to mildly elevated filling pressures. Left ventricular ejection fraction is estimated at 60 %. Right Ventricle Normal right ventricular size and systolic function. Normal right ventricular systolic pressure. Right Atrium The right atrium is normal in size. Left Atrium The left atrium is normal in size. Mitral Valve Structurally normal mitral valve. Moderate mitral valve regurgitation. Aortic Valve Structurally normal aortic valve without significant sclerosis or stenosis. There is no aortic regurgitation. Tricuspid Valve Structurally normal tricuspid valve. Mild tricuspid valve regurgitation. Pulmonic Valve Pulmonic valve not well visualized. Mild pulmonary valve regurgitation. Pericardium Normal pericardium without effusion. Aorta Normal ascending aorta dimension. IVC The inferior vena cava appears normal. CONCLUSIONS Normal left ventricular size, systolic function and wall thickness, with no regional wall motion abnormalities. Grade I/IV diastolic dysfunction (abnormal relaxation filling pattern), normal to mildly elevated filling pressures. Left ventricular ejection fraction is estimated at 60 %. Structurally normal mitral valve. Moderate mitral valve regurgitation. Compared to the previous study done in August 2018, the mitral regurgitation is new. Dr. Jose Menendez MD (Electronically Signed) Final Date: 06 March 2023 08:08 S
[2023-03-05] MEDS: atorvastatin 40 mg Tablet PO (21:24)
[2023-03-05] MEDS: tamsulosin 0.4 mg Capsule PO (21:24)
[2023-03-06] VITALS (7 sets, daily range): BP systolic 112–135; BP diastolic 63–78; PULSE 66–97; RESP 17–19; TEMP 36.2–36.4; O2SAT 93–97
--- NOTE | 2023-03-06 | ECG_ITS ---
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 Interpretive Statements NAME OF STUDY: LEXISCAN SESTAMIBI STRESS TEST INDICATION: CP, CAD PROCEDURE: At the baseline, the blood pressure was 133/76 mmHg with a heart rate of 75 bpm. The electrocardiogram showed normal sinus rhythm, normal axis with nonspecific T wave changes in lead III and aVF. The Lexiscan was infused over a period of 20 seconds. A total of 0.4 milligrams of Lexiscan was infused. The stress phase was continued for a total of 5 minutes. Heart rate at the end of the stress phase was 98 bpm with a blood pressure 112/64 mmHg . The EKG at the peak infusion revealed sinus rhythm with no significant ST-T wave changes. Sestamibi was injected 20 seconds after the Lexiscan infusion. Blood pressure at the end of the recovery phase was 122 over 63 mmHg with a heart rate of 97 beats per minute. CONCLUSION: 1. No significant EKG changes with the LexiScan infusion. 2. No LexiScan induced chest pain or cardiac arrhythmia. 3. Normal blood pressure and heart rate response. 4. Sestamibi/sestamibi perfusion scan pending; see separate report. Electronically Signed On 03-06-2023 12:07:19 CDT by Cyn Ngo M.D. [id number]
[2023-03-06] MEDS: isosorbide mononitrate ER 30 mg Tablet PO (05:26)
[2023-03-06] MEDS: clopidogrel 75 mg Tablet PO (05:26)
[2023-03-06] MEDS: levothyroxine 100 mcg Tablet PO (05:26)
[2023-03-06 05:37] LABS: Basophils % 0.6 %; Eosinophils # 0.3 10^3/uL (0.0-0.8); Eosinophils % 3.6 %; Hematocrit 45.2 % (42.0-52.0); Hemoglobin 14.8 g/dL (11.7-16.6); Lymphocytes # 2.8 10^3/uL (0.8-4.8); Lymphocytes % 40.3 %; Mean Corpuscular HGB Conc 32.7 g/dL (30.0-36.0); Mean Corpuscular Hemoglobin 30.8 pg (28.0-34.0); Mean Platelet Volume 10.2 fL (7.4-10.4); Monocytes # 0.5 10^3/uL (0.2-0.9); Monocytes % 7.8 %; Neutrophils % 47.6 %; Nucleated Red Blood Cells % 0 %; Platelet Count 161 10^3/cmm (130-400); Red Blood Count 4.81 10^6/uL (4.1-5.3); Red Cell Distribution Width 13.5 % (12.1-15.1); White Blood Count 6.9 10^3/uL (4.0-10.0)
--- NOTE | 2023-03-06 06:00 | NMCV_ITS ---
NM rufino perf SPECT r/s* [id number] Kira JuniorKasey Age: 72 Gender: M : 1950 Exam Date: 03/06/2023 06:00 Ordering Phys: Socrates Nam MD Technologist: SHAYY Mcguire Exam [facility]: [facility] Indications: CHEST PAIN STRESS TEST Please see separate stress test report in [facility] for full findings IMAGE PROTOCOL Rest/Stress 1 Lexiscan Day Radiopharmaceutical Dose (mCi) Administration Site Administered by Rest: Tc-99m 10.8 IV Shaun Contreras, V[employer] PILE [employer]IVER Sestamibi Stress:Tc-99m 32.9 IV SHAYY Mcguire Sestamibi Rest: 06-Mar-2023 60 Discovery 630 Stress: 06-Mar-2023 30 Discovery 630 0.4mg Lexiscan. Images obtained in supine and prone position. SPECT RESULTS Technical Quality: Excellent Raw Data Analysis: Normal Image Corrections: No attenuation or motion correction applied Summed Stress Score: 0 Summed Rest Score: 1 Summed Difference Score: 0 PERFUSION FINDINGS SPECT images demonstrate homogeneous tracer distribution throughout the myocardium on stress images. Rest images with decreased tracer uptake in apical lateral wall. FUNCTIONAL RESULTS (calculated via Gated SPECT) Stress Image LV EF (%): 62 Stress EDV (mL):85 TID: 1.33 Stress ESV (mL):32 FUNCTIONAL FINDINGS: The left ventricle is normal in size. Transient Ischemia Dilatation of 1.3. The left ventricular ejection fraction is normal with a value of 62%. There is normal left ventricular wall thickening. Normal end-diastolic and end-systolic volumes. IMPRESSIONS 1. Myocardial perfusion imaging is normal. Attenuation artifact noted on apical lateral wall. 2. Overall left ventricular systolic function is normal without regional wall motion abnormalities, LVEF=62%. 3. EKG portion of the study will be reported separately. Cyn Ngo MD (Electronically Signed) Final Date: 06 March 2023 14:05 S
[2023-03-06 06:15] LABS: Alanine Aminotransferase 32 U/L (0-41); Albumin Level 4.4 g/dL (3.5-5.2); Alkaline Phosphatase 111 U/L (40-130); Anion Gap 14.5 (5-19); Aspartate Amino Transferase 29 U/L (0-40); Blood Urea Nitrogen 14 mg/dL (8-23); Calcium 9.3 mg/dL (8.5-10.5); Carbon Dioxide 27 mmol/L (22-29); Chloride 105 mmol/L (98-107); Globulin 2.1 g/dL (1.3-4.6); Glucose 92 mg/dL (65-115); Osmolality Calculated 294 mOsm/kg (285-295); Potassium 4.5 mmol/L (3.5-5.1); Sodium 142 mmol/L (136-145); Total Bilirubin 1.9 mg/dL (0.15-1.2); Total Protein 6.5 g/dL (6.6-8.7)
[2023-03-06 06:16] LABS: Creatine Phosphokinase 242 U/L (39-308)
--- NOTE | 2023-03-06 06:29 | PC.NURSE ---
Stress test Chart reviewed, patient takes beta blockers. Last documented administration was 03/05 at 0700. Orders for Exercise mibi changed to Lexiscan due to beta blockers. Patient has had no caffeine.
[2023-03-06] MEDS: regadenoson 0.4 Mg/5 ml Syringe IVP (07:48)
--- NOTE | 2023-03-06 08:38 | US_ITS ---
WS: [id number] ULTRASOUND ABDOMEN LIMITED CLINICAL INFORMATION: hepatobiliary COMPARISON: None. FINDINGS: Liver Size: Mild hepatomegaly. Craniocaudal length: 16.9 cm. Echogenicity: Normal. Surface nodularity: None. Mass (size and location): Multiple simple appearing hepatic cysts the largest measuring 1.9 x 1.5 x 2.3 CM. Bile ducts Intrahepatic ducts: Normal. Common bile duct diameter: 0.4 cm. Gallbladder Cholelithiasis Gallstones: Present Gallbladder sludge: None. Gallbladder wall thickening: None. Pericholecystic fluid: None. Sonographic Park sign: Absent. Pancreas Normal as visualized. Right kidney: Normal. Hydronephrosis: None. Size: 11.4 cm x 5.4 cm x 5.2 cm. Abdominal aorta and IVC Visualized portions are normal. Ascites: None. US/US abdomen limited [id number] IMPRESSION: 1. Mild hepatomegaly. 2. A few lobulated simple appearing hepatic cysts the largest measuring 1.9 x 1.5 x 2.3 CM. 3. Small shadowing gallbladder calculus measuring 4.4 mm. No gallbladder wall thickening or pericholecystic fluid. 4. Normal common bile duct. 5. No hydronephrosis in RIGHT kidney.
[2023-03-06] MEDS: aspirin 325 mg Tablet PO (10:19)
--- NOTE | 2023-03-06 15:25 | PM.DCS ---
Discharge Providers Date of Admission: 03/05/23 17:35 Date of Discharge: March 06, 2023 Attending Provider at Admission: Socrates Nam Attending Provider at Discharge: Socrates Nam Primary Care Provider: Andres Dickens NP Diagnoses at Discharge Discharge Diagnosis (1) Chest pain: Status: Acute Qualifiers: Chest pain type: unspecified Qualified Code(s): R07.9 - Chest pain, unspecified Reason for Visit Reason for Visit: Chest Pain, Numbness on left side Hospital Course Hospital Course Pleasant 72-year-old gentleman with past history of CAD, stenting x2 proximal LAD and mid RCA in 2019, on aspirin, Plavix, beta-dennys and statin, 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 Received nitroglycerin, aspirin, pain had resolved. Troponin level normal, without suggestion of acute ischemia. Low risk for PE. D-dimer WNL. He was monitored on telemetry. No recurrence of chest pain overnight. Echocardiogram obtained, without RWMA, ejection fraction WNL, grade 1 diastolic dysfunction. Underwent stress testing with normal results, normal EF. Attenuation artifact noted on apical lateral wall. Discussed with him lower chance of false negative result. He is well aware to seek medical attention in case of any returning or concerning new symptoms as he is aware he is at risk of acute NM. He will be following up with primary provider, cardiology, please continue to optimize cardiovascular risk factors. He understands to continue stay active but avoid overexertion especially in heat. CK was checked as well and was normal, no sign of rhabdomyolysis. He was noted to have some mild intermittent increases in T. bili. Currently up to 1.9. No abdominal pain. Park negative. Abdominal ultrasound obtained, noted gallbladder stone 4.4 mm, no gallbladder wall thickening or fluid. Normal CBD. Few lobulated simple appearing hepatic cysts largest measuring 1.9 x 1.5 x 2.3 cm. Mild hepatomegaly. Fractionated bilirubin obtained, elevation appears to be mostly indirect. Possible Gilbert syndrome? Please follow-up for additional assessment and repeat bilirubin. Follow-up regarding cholelithiasis. Physical Exam Narrative: Accompanied by visitors on second visit including his . Const: COMMON NORMALS: patient oriented x3 and alert GENERAL APPEARANCE: cooperative ORIENTATION/CONSCIOUSNESS: Yes awake HENMT: COMMON NORMALS: oropharynx normal Neck/C-Spine: COMMON NORMALS: no JVD Resp: COMMON NORMALS: normal respiratory effort and clear to auscultation bilaterally AUSCULTATION: clear to auscultation bilaterally Cardio: COMMON NORMALS: no JVD, regular rhythm, S1 normal heart sound present, S2 normal heart sound present and No murmurs present (Cardio) RHYTHM: regular rhythm HEART SOUNDS: S1 normal heart sound present and S2 normal heart sound present GI: COMMON NORMALS: Normal to inspection, nondistended, normoactive bowel sounds present, Soft to palpation and non-tender PALPATION: Yes Soft to palpation Extremity: COMMON NORMALS: no joint enlargement and no pedal edema Neuro: COMMON NORMALS: patient oriented x3 and moves all extremities SENSORIUM/ORIENTATION: Yes alert Skin: COMMON NORMALS: no rashes or lesions noted GENERAL SKIN EXAM: no rashes or lesions noted Discharge Data Studies Completed and Pending Completed Studies During Hospitalization Category Date Time Status Cardiac Stress Test MIBI [Sestamibi Stress Test Request Exams 03/06/23 08:00 Completed ] Stat XR chest 1V portable [id number] Stat Exams 03/05/23 14:42 Completed NM rufino perf SPECT r/s* [id number] Routine Nuc Med 03/06/23 06:00 Completed CV. echo complete* [id number] Stat Ultrasound 03/05/23 18:28 Completed US abdomen limited [id number] Routine Ultrasound 03/06/23 08:38 Completed Pending at discharge Category Date Time Status Cardiac Stress Test MIBI [Sestamibi Stress Test Request Exams 03/06/23 08:00 Ordered ] Stat Complete Blood Count w/Auto AM LABS Lab 03/07/23 04:00 Ordered Complete Blood Count w/Auto AM LABS Lab 03/08/23 04:00 Ordered Complete Blood Count w/Auto AM LABS Lab 03/09/23 04:00 Ordered Comprehensive Metabolic Panel AM LABS Lab 03/07/23 04:00 Ordered Comprehensive Metabolic Panel AM LABS Lab 03/08/23 04:00 Ordered Comprehensive Metabolic Panel AM LABS Lab 03/09/23 04:00 Ordered Radiology Impressions Chest X-Ray 03/05/23 14:42 IMPRESSION: 1. No acute cardiopulmonary finding. Abdomen Ultrasound 03/06/23 08:38 IMPRESSION: 1. Mild hepatomegaly. 2. A few lobulated simple appearing hepatic cysts the largest measuring 1.9 x 1.5 x 2.3 CM. 3. Small shadowing gallbladder calculus measuring 4.4 mm. No gallbladder wall thickening or pericholecystic fluid. 4. Normal common bile duct. 5. No hydronephrosis in RIGHT kidney. Laboratory Results WBC 6.9 10^3/uL (4.0-10.0) 03/06/23 05:05 RBC 4.81 10^6/uL (4.1-5.3) 03/06/23 05:05 Hgb 14.8 g/dL (11.7-16.6) 03/06/23 05:05 Hct 45.2 % (42.0-52.0) 03/06/23 05:05 MCV 94.0 fl (80-94) 03/06/23 05:05 MCH 30.8 pg (28.0-34.0) 03/06/23 05:05 MCHC 32.7 g/dL (30.0-36.0) 03/06/23 05:05 RDW 13.5 % (12.1-15.1) 03/06/23 05:05 Plt Count 161 10^3/cmm (130-400) 03/06/23 05:05 MPV 10.2 fL (7.4-10.4) 03/06/23 05:05 Neut % (Auto) 47.6 % 03/06/23 05:05 Lymph % (Auto) 40.3 % 03/06/23 05:05 [place] % (Auto) 7.8 % 03/06/23 05:05 Eos % (Auto) 3.6 % 03/06/23 05:05 Baso % (Auto) 0.6 % 03/06/23 05:05 Neut # (Auto) 3.30 10^3/uL (1.8-7.7) 03/06/23 05:05 Lymph # (Auto) 2.8 10^3/uL (0.8-4.8) 03/06/23 05:05 [place] # (Auto) 0.5 10^3/uL (0.2-0.9) 03/06/23 05:05 Eos # (Auto) 0.3 10^3/uL (0.0-0.8) 03/06/23 05:05 Baso # (Auto) 0.0 10^3/uL (0.0-0.1) 03/06/23 05:05 Nucleated RBC % (auto) 0 % 03/06/23 05:05 Nucleated RBCs # 0.0 /100WBC 03/06/23 05:05 PT 12.80 SECONDS (12.1-14.9) 03/05/23 14:46 INR 0.93 (0.8-1.2) 03/05/23 14:46 APTT 28.2 SECONDS (23.9-36.7) 03/05/23 14:46 D-Dimer 0.39 ug/mIFEU (0-0.59) 03/05/23 14:44 Sodium 142 mmol/L (136-145) 03/06/23 05:05 Potassium 4.5 mmol/L (3.5-5.1) 03/06/23 05:05 Chloride 105 mmol/L (98-107) 03/06/23 05:05 Carbon Dioxide 27 mmol/L (22-29) 03/06/23 05:05 Anion Gap 14.5 (5-19) 03/06/23 05:05 BUN 14 mg/dL (8-23) 03/06/23 05:05 Creatinine 0.8 mg/dL (0.7-1.2) 03/06/23 05:05 GFR Calculation Not Reportable 03/06/23 05:05 Glucose 92 mg/dL (65-115) 03/06/23 05:05 Calculated Osmolality 294 mOsm/kg (285-295) 03/06/23 05:05 Calcium 9.3 mg/dL (8.5-10.5) 03/06/23 05:05 Total Bilirubin 1.9 mg/dL (0.15-1.2) H 03/06/23 05:05 Direct Bilirubin 0.30 mg/dL (0.00-0.30) 03/06/23 05:05 AST 29 U/L (0-40) 03/06/23 05:05 ALT 32 U/L (0-41) 03/06/23 05:05 Alkaline Phosphatase 111 U/L (40-130) 03/06/23 05:05 Creatine Kinase 242 U/L (39-308) 03/06/23 05:05 Troponin T Baseline 6 ng/L (0-15) 03/05/23 14:46 Troponin T 120 Minute 6.00 ng/L (0-15) 03/05/23 16:47 Delta Troponin T 0 ABS# (0-10) 03/05/23 16:47 Total Protein 6.5 g/dL (6.6-8.7) L 03/06/23 05:05 Albumin 4.4 g/dL (3.5-5.2) 03/06/23 05:05 Globulin 2.1 g/dL (1.3-4.6) 03/06/23 05:05 Vitals Last Vital Signs Temp 97.1 F L 03/06/23 12:00 Pulse 87 03/06/23 12:00 Resp 18 03/06/23 12:00 BP 112/63 03/06/23 12:00 Pulse Ox 93 03/06/23 12:00 O2 Del Method Room Air 03/06/23 12:00 Discharge Plan Discharge Patient Disposition: Home Condition: Stable Prescriptions: Continued cholecalciferol (vitamin D3) 25 mcg (1,000 unit) capsule 25 mcg PO QAM aspirin [Adult Aspirin Regimen] 81 mg tablet,delayed release (DR/EC) 81 mg PO QAM Hold Instructions: Resume on 02/20/22. tamsulosin 0.4 mg capsule 0.4 mg PO BEDTIME nitroglycerin 0.4 mg tablet, sublingual 0.4 mg sublingual Q5M PRN (Reason: chest pain) Qty: 25 3RF Rx Instructions: do not exceed 3 doses per episode multivitamin Tablet 1 tab PO QAM levothyroxine 100 mcg tablet 100 mcg PO QAM isosorbide mononitrate 30 mg tablet extended release 24 hr 30 mg PO QAM Plavix 75 mg tablet 75 mg PO QAM simvastatin 80 mg tablet 80 mg PO BEDTIME metoprolol tartrate 25 mg tablet 12.5 mg PO BID@ Discharge Orders: Discharge Order (Routine); Ordered 03/06/23 Ordered By: Socrates Nam Referrals: Andres Dickens NP [Primary Care Provider] - 4-7 days Lisa Bertrand FNP [Nurse Practitioner] - 1 week (Chest pain) Discharge Diet: Cardiac, Low Cholesterol and Low Fat Discharge Activity: Increase activity as tolerated and Limit activity as instructed Activity Restrictions/Additional Instructions: Please follow-up with your primary doctor for reassessment and follow-up with cardiology to discuss episode of chest pain. Please discuss with your primary doctor at next visit also regarding incidentally seen recurrent mild elevation of indirect bilirubin and consider additional testing. Follow-up and discuss with your primary doctor also regarding incidentally noticed gallstone in your gallbladder which will need to be monitored, in case of becoming symptomatic at some point gallbladder may need to be removed. As discussed seek medical attention in case of any return of or new concerning symptoms. Discharge Attestations Time Spent in Discharge Care*: greater than 30 min Quality Metrics Clinical Quality Measures [ No reported AMI, CVA or VTE this stay] Coding Level of Care Code Acute Code for Chg Fwd Diagnoses Chest pain R07.9 Chest pain type: unspecified
--- NOTE | 2023-03-06 15:48 | PC.NURSE ---
Discharge Note Patient discharged to home via private vehicle accompanied by . Discharge instructions reviewed with patient and/or fuels sales representative. Mobile pharmacy medications and/or prescriptions provided. Belongings/home medications returned.
== END 2023-03-06 16:09 | disposition home or self-care (01) ==
LOC: ER 17:49 → MEDSURG 18:43
PROVIDERS: Admitting Provider Internal Medicine; Emergency Provider Family Medicine; PCP Nurse Practitioner Family; Visit Provider Internal Medicine
DX: R07.9 Chest pain, unspecified (principal); I25.10 Atherosclerotic heart disease of native coronary artery without angina pectoris; Z95.5 Presence of coronary angioplasty implant and graft; Z79.82 Long term (current) use of aspirin; Z79.02 Long term (current) use of antithrombotics/antiplatelets; I10 Essential (primary) hypertension; E78.5 Hyperlipidemia, unspecified; Z87.891 Personal history of nicotine dependence; I34.0 Nonrheumatic mitral (valve) insufficiency
CPT/HCPCS: 36415; 71045; 76705; 78452; 80053; 82248; 82550; 84484; 85025; 85378; 85610; 85730; 93005; 93306; 96374; 96375; 99285; A9500; G0378; J2270; J2405; J2785

== ENCOUNTER 2023-03-13 06:03 | Outpatient (CLI) | payer MEDICARE, SELFPAY ==
--- NOTE | 2023-03-13 06:41 | CT_ITS ---
WS: [id number] LDCT LUNG CANCER SCREENING TECHNIQUE: Noncontrast CT of the chest with coronal and sagittal reformatted images. CLINICAL INFORMATION: FORMER SMOKER COMPARISON: July 2021 DLP: 55.52 DIvol: 1.[address] scans at [facility] use at least one of these dose optimization techniques: automat ed exposure control; mA and/or kV adjustment per patient size (includes targeted exams where dose is matched to clinical indication); or iterative reconstruction. FINDINGS: Lungs are well aerated. Noncalcified nodule RIGHT upper lobe at the lung apex measuring 4.5 mm not de finitely visualized on prior CT. Biapical fibrosis. Few scattered calcified granulomas. No acute pulmonary infiltrates. No other suspi cious pulmonary parenchymal opacities. Mild aortic calcification. Normal caliber thoracic aorta. Calcified subcarinal and right hilar lymph nodes. No mediastinal or hilar lymphadenopathy. No axillar y lymphadenopathy. Adrenal glands are normal. Small esophageal hiatal hernia. Biapical fibrosis. CT/CT lung screening [id number] IMPRESSION: LUNG-RADS: 2-Benign Appearance or Behavior FOLLOW UP: 12 Month: Continue annual screening with LDCT
== END 2023-03-13 06:04 | disposition home or self-care (01) ==
PROVIDERS: PCP Nurse Practitioner Family; Visit Provider Family Medicine
DX: Z12.2 Encounter for screening for malignant neoplasm of respiratory organs (principal); Z87.891 Personal history of nicotine dependence
CPT/HCPCS: 71271

== ENCOUNTER → 2023-03-20 08:38 | Outpatient (BNVA) | payer MEDICARE, SELFPAY | PROVIDERS: PCP Nurse Practitioner Family; Visit Provider Nurse Practitioner Family | DX: I25.10 Atherosclerotic heart disease of native coronary artery without angina pectoris (principal) | CPT/HCPCS: 99213 ==

== ENCOUNTER 2024-01-13 08:01 | Outpatient (RCR) | payer MEDICARE, SELFPAY | END 2024-01-15 23:59 | disposition home or self-care (01) | LOC: SPT 08:01 | PROVIDERS: PCP Family Medicine; Visit Provider Family Medicine | DX: M54.50 Low back pain, unspecified (principal) | CPT/HCPCS: 97161 ==

== ENCOUNTER 2024-01-16 06:00 | Outpatient (RCR) | payer MEDICARE, SELFPAY | END 2024-02-10 23:59 | disposition home or self-care (01) | LOC: SPT 06:00 | PROVIDERS: PCP Family Medicine; Visit Provider Family Medicine | DX: M54.50 Low back pain, unspecified (principal) | CPT/HCPCS: 97110 ==

== ENCOUNTER → 2024-01-18 13:42 | Outpatient (BNVA) | payer MEDICARE, SELFPAY | PROVIDERS: PCP Family Medicine; Visit Provider Internal Medicine Cardiovascular Disease | DX: I25.10 Atherosclerotic heart disease of native coronary artery without angina pectoris (principal); I34.0 Nonrheumatic mitral (valve) insufficiency; R03.0 Elevated blood-pressure reading, without diagnosis of hypertension; E78.5 Hyperlipidemia, unspecified; E03.9 Hypothyroidism, unspecified; Z87.891 Personal history of nicotine dependence | CPT/HCPCS: 99214 ==

== ENCOUNTER 2024-03-14 07:35 | Outpatient (CLI) | payer MEDICARE, SELFPAY ==
--- NOTE | 2024-03-14 07:40 | CT_ITS ---
WS: [id number] LDCT LUNG CANCER SCREENING TECHNIQUE: Noncontrast CT of the chest with coronal and sagittal reformatted images. CLINICAL INFORMATION: NICOTINE DEPENDENCE,CIGARETTES COMPARISON: 03/13/2023 DLP: 56.40 mGy.cm DIvol: Mean CTDIvol: 1.10 (mGy) All CT scans at [facility] use at least one of these dose optimization techniques: automat ed exposure control; mA and/or kV adjustment per patient size (includes targeted exams where dose is matched to clinical indication); or iterative reconstruction. FINDINGS: New suspicious spiculated solid nodule in the RIGHT upper lobe extending to the lung apex with apical fibrosis. Lesion measures approximately 2.3 x 2.8 cm suspicious for neoplasm. Recommend further eval uation with PET/CT. This also can be further evaluated with bronchoscopy. Small amount of surrounding satellite nodularity. Small nodule along the LEFT fissure measuring 3.5 mm. LEFT apical fibrosis. Small noncalcified nodule LEFT upper lobe. Pleural nodularity along the RIGHT fissure. Tiny subpleural nodule RIGHT middle lob e. Slight bibasal atelectasis. Normal caliber thoracic aorta. Aortic calcification. Coronary calcification. No axillary lymphadenopa thy. Mild diffuse fatty infiltration of the liver. Small esophageal hiatal hernia. Adrenal glands are normal. No axillary lymphadenopathy. Mild thoracic curve. Mild thoracic kyphosis. A few calcified gr anulomas. 0 CT/CT lung screening [id number] IMPRESSION: New spiculated masslike nodule in the RIGHT upper lobe extending to the lung ap ex measuring 2.3 x 2.8 highly cm suspicious for neoplasm. Recommend further claudette luation with PET/CT and consider bronchoscopy. LUNG-RADS: 4X-Suspicious FOLLOW UP: PET/CT recommended
== END 2024-03-14 07:36 | disposition home or self-care (01) ==
LOC: RAD 07:36
PROVIDERS: PCP Family Medicine; Visit Provider Family Medicine
DX: Z12.2 Encounter for screening for malignant neoplasm of respiratory organs (principal); F17.210 Nicotine dependence, cigarettes, uncomplicated; R91.8 Other nonspecific abnormal finding of lung field; I70.0 Atherosclerosis of aorta; I25.84 Coronary atherosclerosis due to calcified coronary lesion; K44.9 Diaphragmatic hernia without obstruction or gangrene
CPT/HCPCS: 71271

== ENCOUNTER 2024-03-15 06:52 | Emergency (ER) | payer MEDICARE, SELFPAY ==
--- NOTE | 2024-03-15 06:59 | CTR_ITS ---
PROCEDURE INFORMATION: Exam: CT Head Without Contrast Exam date and time: 03/15/2024 7:15 AM Age: 73 years old Clinical indication: Injury or trauma; Other: Hit with a gate; Blunt trauma (contusions or hematomas); Injury details: -pt was loading a cow into the trailer and the cow kicked the gate into PT head. Lac to center/right of forehead. PT C/O headache TECHNIQUE: Imaging protocol: Computed tomography of the head without contrast. Radiation optimization: All CT scans at this facility use at least one of these dose optimization techniques: automated exposure control; mA and/or kV adjustment per patient size (includes targeted exams where dose is matched to clinical indication); or iterative reconstruction. COMPARISON: CT head wo con* [id number] 01/29/2020 6:16 AM RADIATION DOSE METRICS: Total DLP (mGy-cm): 1123.48 FINDINGS: Brain: No acute intracranial hemorrhage or mass effect. No subdural collections are seen. Cerebral ventricles: The ventricles are stable size and position compared to 01/29/2020. No midline shift. Paranasal sinuses: Visualized portions of paranasal sinuses are well aerated. Mastoid air cells: Visualized portions of mastoid sinuses are not opacified. Bones: Unremarkable. No acute fracture. Soft tissues: Other than as stated above, no obvious acute abnormality. CT/CT head wo con* [id number] IMPRESSION: No acute intracranial hemorrhage or mass effect.
--- NOTE | 2024-03-15 07:00 | ED_ITS ---
HPI - Head Injury General: Chief complaint: Wound/Laceration Stated complaint: head wound by cow (he is bleeding quite a bit) Time Seen by Provider: 03/15/24 06:53 Source: patient Mode of arrival: ambulatory Limitations: no limitations History of Present Illness: 73-year-old male states that he is getti ng a count of trailer she had hit the trailer gate hit him in the head he does have a 4 cm laceration to his forehead takes a baby aspirin a day denies any loss conscious does have a headache he rates a 5 out of 10 denies any other injuries at this time Associated symptoms: Deny nausea, neck pain or vomiting Review of Systems Const: Denies: fever(s), chills, body aches or change in appetite Eyes: Denies: blurry vision or eye discomfort ENMT: Denies: throat pain or dental pain Card: Denies: chest pain Resp: Denies: dyspnea GI: Denies: abdominal pain, nausea, vomiting or diarrhea Musc: Denies: neck pain or back pain Skin/Breast: Denies: rash Neuro: Reports: headache(s) PFSH ED PFSH: 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 Pain management contract signed Stable angina Cervical spondylosis Erectile dysfunction Non-ST elevation [place] (NSTEMI) CAD (coronary artery disease) 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 Surgical History History of cardiac cath CAD s/p stent to LAD and RCA in 2019 Hx of left inguinal hernia repair Family History Mother Dementia Hypertension CAD (coronary artery disease) Denies family history of Diabetes Clotting disorder Hyperlipidemia Psychiatric illness Chronic kidney disease (CKD) Suicide Anesthesia complication Bleeding disorder Family history of premature coronary artery disease Lung disease Cancer Stroke Social History Smoking and tobacco/nicotine status: former use of tobacco/nicotine Alcohol intake: never Substance/Drug Use: never Marital status: Physical Exam Const: COMMON NORMALS: no acute distress, patient oriented x3 and healthy appearing HENMT: COMMON NORMALS: normocephalic HEAD & SCALP: normocephalic OTHER: 4 cm laceration to forehead Eye: COMMON NORMALS: Equal, round and reactive pupils present and EOMs intact bilaterally PUPIL: Yes Equal, round and reactive pupils present Neck/C-Spine: COMMON NORMALS: full ROM and supple Chest: COMMONS NORMALS: normal inspection of the chest Resp: COMMON NORMALS: normal respiratory effort Cardio: COMMON NORMALS: regular rate RATE: regular rate Extremity: COMMON NORMALS: normal to inspection and full ROM Neuro: COMMON NORMALS: patient oriented x3, moves all extremities and no focal motor deficits Psych: COMMON NORMALS: mental status grossly normal, Normal thought process present and cooperative THOUGHT PROCESS: Normal thought process present Skin: COMMON NORMALS: no rashes or lesions noted and no wounds GENERAL SKIN EXAM: no rashes or lesions noted Procedures Laceration Laceration 1: Site: face Side (If applicable): right Size (cm): 4 Description: linear Depth: simple, single layer Local Anesthetic: lidocaine 1% Amount of anesthesia used (mL): 8 Pre-repair: wound explored, irrigated extensively and deep structures intact Skin layer closed with: nylon Size (cm): 5-0 Number of sutures: 6 Technique: simple, interrupted Course Vital Signs: Vital signs: Vital Signs Temperature 98.1 F 03/15/24 07:01 Pulse Rate 89 03/15/24 07:01 Blood Pressure 131/88 03/15/24 07:01 Pulse Oximetry 95 03/15/24 07:01 Oxygen Delivery Me thod Room Air 03/15/24 07:01 MDM - Head Injury Medcial Decision Making Patient presents with a head laceration head CT here is normal did suture the wound he is to have his sutures out in 1 week he is stable for discharge return if worsening Medical Records I reviewed the patient's medical records. Lab Data Radiology Impressions Head CT 03/15/24 06:59 IMPRESSION: No acute intracranial hemorrhage or mass effect. All radiology interpretation(s) finalized by discharge Discharge Plan Discharge Patient Disposition: Home Clinical Impression: Laceration of head Condition: Stable Prescriptions: No Action cholecalciferol (vitamin D3) 25 mcg (1,000 unit) capsule 25 mcg PO QAM aspirin [Adult Aspirin Regimen] 81 mg tablet,delayed release (DR/EC) 81 mg PO QAM Hold Instructions: Resume on 02/20/22. tamsulosin 0.4 mg capsule 0.4 mg PO BEDTIME metoprolol tartrate 25 mg tablet See Rx Instructions .ROUTE .COMPLEX Qty: 90 0RF Dose Instruction: TAKE 1/2 TABLET TWICE DAILY Rx Instructions: TAKE 1/2 TABLET TWICE DAILY nitroglycerin 0.4 mg tablet, sublingual 0.4 mg sublingual Q5M PRN (Reason: chest pain) Qty: 25 3RF Rx Instructions: do not exceed 3 doses per episode Plavix 75 mg tablet 75 mg PO QAM Qty: 90 3RF simvastatin 80 mg tablet See Rx Instructions .ROUTE .COMPLEX Qty: 90 3RF Dose Instruction: TAKE 1 TABLET EVERY EVENING Rx Instructions: TAKE 1 TABLET EVERY EVENING multivitamin Tablet 1 tab PO QAM levothyroxine 100 mcg tablet 100 mcg PO QAM isosorbide mononitrate 30 mg tablet extended release 24 hr 30 mg PO QAM Discharge Orders: Discharge ED (Routine); Ordered 03/15/24 Ordered By: Esperanza Whitt Referrals: Phil Baker MD [Primary Care Provider] - 4-7 days Discharge Diet: Advance as tolerated Discharge Activity: Resume usual activity Patient Instructions: Care For Your Stitches (ED), Laceration (ED), Pain Management Activity Restrictions/Additional Instructions: suture removal in 7 days Coding Level of Care Code ED Product Handler for Wilian Velazquez
[2024-03-15 07:01] VITALS: BP 131/88; PULSE 89; TEMP 36.7; O2SAT 95; BMI 22.4
[2024-03-15] MEDS: tetanus-dipt-pertussis 0.5 mL SDV IM (07:07)
[2024-03-15 07:57] VITALS: BP 116/75; PULSE 74; O2SAT 95
== END 2024-03-15 07:58 | disposition home or self-care (01) ==
PROVIDERS: Emergency Provider Emergency Medicine; PCP Family Medicine
DX: S01.81XA Laceration without foreign body of other part of head, initial encounter (principal); I25.2 Old myocardial infarction; I25.10 Atherosclerotic heart disease of native coronary artery without angina pectoris; E78.5 Hyperlipidemia, unspecified; Z87.891 Personal history of nicotine dependence; W20.8XXA Other cause of strike by thrown, projected or falling object, initial encounter; Z79.02 Long term (current) use of antithrombotics/antiplatelets; Z79.82 Long term (current) use of aspirin; Z23 Encounter for immunization
CPT/HCPCS: 12013; 70450; 90471; 90715; 99284

== ENCOUNTER → 2024-03-22 07:50 | Outpatient (BNVA) | payer MEDICARE, SELFPAY | PROVIDERS: PCP Family Medicine; Referring Provider Family Medicine; Visit Provider Internal Medicine Critical Care Medicine | DX: R91.8 Other nonspecific abnormal finding of lung field (principal); R91.1 Solitary pulmonary nodule; F17.211 Nicotine dependence, cigarettes, in remission; Z01.811 Encounter for preprocedural respiratory examination; J43.2 Centrilobular emphysema; Z71.6 Tobacco abuse counseling | CPT/HCPCS: 99204 ==

== ENCOUNTER 2024-04-05 08:29 | Outpatient (CLI) | payer MEDICARE, SELFPAY ==
--- NOTE | 2024-04-05 09:46 | PETR_ITS ---
PROCEDURE INFORMATION: Exam: PET/CT Skull Base to Mid-thigh Exam date and time: 04/05/2024 9:30 AM Age: 73 years old Clinical indication: Abnormal findings; New 2.8 cm rul lung nodule LABS AND CLINICAL REPORTS: Glucose: 118 mg/dl Treatment strategy for malignancy (PET staging): Initial Staging (PI) TECHNIQUE: Imaging protocol: Following at least four-hour fasting and following the injection of radiopharmaceutical, low dose CT images were obtained. Then, PET images were obtained. Attenuation corrected images were constructed using the CT scan. Fused images of PET and CT were reviewed. The standardized uptake values (SUV) reported below are maximum values within a region of interest, expressed in gm/ml. Exam includes orbital meatal line to mid-thigh. Radiopharmaceutical: 12.25 mCi F-18 FDG (Fluorodeoxyglucose), IV. Time of imaging post radiopharmaceutical administration: 1 hour Injection site: Left antecubital vein COMPARISON: CT lung screening [id number] 03/14/2024 and 03/05/2023 FINDINGS: Brain: Visualized brain has normal physiologic uptake. Pharynx: Physiologic bilateral symmetric uptake in the tonsils with no abnormal enlargement. Larynx: No abnormal uptake. Thyroid: Normal in size with diffusely increased uptake up to 9.6 SUV suggestive of thyroiditis. Lungs, pleura and trachea: 2.7 x 2.5 cm right upper lobe nodule shows intense peripheral uptake of 18.4 SUV and central hypometabolic area suggestive of necrosis. No pleural effusion. Heart: Normal physiologic uptake. There is no cardiomegaly. Severe coronary artery calcification is present. There is no pericardial effusion. Mediastinal space: See below in lymph nodes . There is a small hiatal hernia. Liver: No abnormal uptake. Severe fatty liver (19 Hounsfield units). 2.5 cm simple cyst in the segment 6 on series 202, image 189. Gallbladder and biliary ducts: No abnormal uptake. 0.5 cm calcified gallstone. Pancreas: No abnormal uptake. Spleen: No abnormal uptake. No splenomegaly. Adrenal glands: No abnormal uptake. No nodules. Kidneys and ureters: Normal physiologic uptake. No hydronephrosis. Stomach and bowel: No abnormal uptake. Mild diverticulosis of the sigmoid colon. Vasculature: No abnormal uptake. No aortic aneurysm. Lymph nodes: There is intense uptake up to 12.3 SUV within normal size bilateral hilar and mediastinal lymph nodes. No FDG avid lymphadenopathy in the head, neck, abdomen, pelvis, and extremities. Skeleton: 0.7 cm focus of increased uptake of 4.9 SUV in the left iliac bone corresponds to 0.9 cm sclerotic nodule as seen on series 202, image 143. Soft tissues: About 1.5 x 0.7 cm elongated focus of increased intramuscular uptake of 4.6 SUV posteriorly in the left proximal shoulder on axial image 37 is indeterminate. PET/PET skull to thigh INIT [id number] IMPRESSION: 2.7 cm right upper lobe nodule with intense peripheral uptake of 18.4 SUV and central hypometabolic area is suspicious for centrally necrotic malignancy. Intense uptake up to 12.3 SUV within normal size bilateral hilar and mediastinal lymph nodes is concerning for malignancy. Subcentimeter focus of increased uptake of 4.9 SUV in the left iliac bone corresponding to sharply-circumscribed sclerotic nodule is unusual for bone metastases though malignancy cannot be excluded. Small elongated focus of increased intramuscular uptake posteriorly in the left proximal shoulder measuring 4.6 SUV is indeterminate, may be benign given the shape.
== END 2024-04-05 08:30 | disposition home or self-care (01) ==
LOC: RAD 08:29
PROVIDERS: PCP Family Medicine; Visit Provider Family Medicine
DX: R91.8 Other nonspecific abnormal finding of lung field (principal); F17.211 Nicotine dependence, cigarettes, in remission; K76.0 Fatty (change of) liver, not elsewhere classified; K76.89 Other specified diseases of liver; K57.30 Diverticulosis of large intestine without perforation or abscess without bleeding; K44.9 Diaphragmatic hernia without obstruction or gangrene
CPT/HCPCS: 78815; A9552

== ENCOUNTER 2024-04-20 13:37 | Outpatient (CLI) | payer MEDICARE, SELFPAY ==
[2024-04-20 13:59] VITALS: PULSE 85; RESP 18; O2SAT 98
[2024-04-20] MEDS: albuterol 2.5 mg/3 mL Neb INHALATION (13:59)
== END 2024-04-20 13:38 | disposition home or self-care (01) ==
LOC: RT 13:39
PROVIDERS: PCP Family Medicine; Visit Provider Internal Medicine Critical Care Medicine
DX: J43.2 Centrilobular emphysema (principal); R91.1 Solitary pulmonary nodule
CPT/HCPCS: 94060; 94726; 94729; J7613

== ENCOUNTER 2024-05-12 16:26 | Emergency (ER) | payer MEDICARE, SELFPAY ==
--- NOTE | 2024-05-12 16:28 | ECG_ITS ---
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 Measurements Intervals [place] Rate: 72 P: 51 [place]: 151 QRS: 51 QRSD: 106 T: 24 QT: 382 QTc: 419 Interpretive Statements SINUS RHYTHM POSSIBLE RIGHT VENTRICULAR CONDUCTION DELAY [RSR (QR) IN V1/V2] Compared to ECG 03/05/2023 14:54:32 No significant changes Electronically Signed On 05-13-2024 20:24:50 CDT by Berto Martins M.D. [id number]
[2024-05-12 16:35] VITALS: BP 111/71; PULSE 74; RESP 16; TEMP 36.6; O2SAT 95; BMI 22.8
[2024-05-12 16:52] VITALS: BP 123/82; PULSE 75; O2SAT 96
--- NOTE | 2024-05-12 16:54 | ED_ITS ---
HPI - Chest Pain 2 General: Chief Complaint: Chest Pain Stated Complaint: chest pain, left arm numb, nitro Time Seen by Provider: 05/12/24 16:28 Source: patient Mode of arrival: ambulatory Limitations: no limitations History of Present Illness: 73-year-old male states that he has been having intermittent chest pains today states been a pressure type pain in the center of his chest. He states he has been under a lot of stress lately and is recently diagnosed with lung nodule states he had a PET scan is scheduled for lung biopsy next week. He does have a history of coronary disease he denies any cough or fever denies any dyspnea or nausea Associated symptoms: Deny abdominal pain, dyspnea, fever(s), nausea or vomiting Related Data Home Medications Medication Instructions Recorded Confirmed aspirin 81 mg tablet,delayed 81 mg PO QAM 09/28/19 03/22/24 release (Adult Aspirin Regimen) tamsulosin 0.4 mg capsule 0.4 mg PO BEDTIME 01/27/20 03/22/24 cholecalciferol (vitamin D3) 25 25 mcg PO QAM 07/22/21 03/22/24 mcg (1,000 unit) capsule levothyroxine 100 mcg tablet 100 mcg PO QAM 03/05/23 03/22/24 multivitamin 1 tab PO QAM 03/05/23 03/22/24 Previous Rx's Medication Instructions Recorded nitroglycerin 0.4 mg sublingual 0.4 mg sublingual Q5M PRN chest 10/16/22 tablet pain #25 tabs clopidogrel 75 mg tablet (Plavix) 75 mg PO QAM #90 tabs 07/03/23 simvastatin 80 mg tablet See Rx Instructions .Route 09/09/23 .COMPLEX #90 tabs isosorbide mononitrate 30 mg 30 mg PO QAM #90 tabs 03/16/24 tablet,extended release 24 hr metoprolol tartrate 25 mg tablet See Rx Instructions .Route 04/01/24 .COMPLEX #90 tabs Allergies Allergy/AdvReac Type Severity Reaction Status Date / Time oxycodone Allergy Unknown head Verified 03/22/24 08:40 spinning hydrocodone Allergy ADR-Irritab Verified 03/22/24 08:40 le tramadol Allergy head Verified 03/22/24 08:40 spinning Review of Systems 2 Const: Denies: fever(s), chills, body aches or change in appetite ENMT: Denies: throat pain or dental pain Card: Reports: chest pain Resp: Denies: dyspnea GI: Denies: abdominal pain, nausea, vomiting or diarrhea : Denies: dysuria Musc: Denies: neck pain or back pain Skin/Breast: Denies: rash Neuro: Denies: headache(s) PFSH ED 2 PFSH: Medical History 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 Pain management contract signed Stable angina Cervical spondylosis Erectile dysfunction Non-ST elevation [place] (NSTEMI) CAD (coronary artery disease) 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 Surgical History History of cardiac cath CAD s/p stent to LAD and RCA in 2019 Hx of left inguinal hernia repair Family History Mother Dementia Hypertension CAD (coronary artery disease) Denies family history of Diabetes Clotting disorder Hyperlipidemia Psychiatric illness Chronic kidney disease (CKD) Suicide Anesthesia complication Bleeding disorder Family history of premature coronary artery disease Lung disease Cancer Stroke Social History Smoking and tobacco/nicotine status: former use of tobacco/nicotine Quit status (tobacco/nicotine): has quit using Year quit tobacco: 2019 Former quit date comment: 1 ppd X 50 years Alcohol intake: never Substance/Drug Use: never Marital status: Physical Exam 2 Const: COMMON NORMALS: no acute distress, patient oriented x3 and healthy appearing HENMT: COMMON NORMALS: normocephalic and atraumatic HEAD & SCALP: n ormocephalic and atraumatic Eye: COMMON NORMALS: Equal, round and reactive pupils present and EOMs intact bilaterally PUPIL: Yes Equal, round and reactive pupils present Neck/C-Spine: COMMON NORMALS: full ROM and supple Chest: COMMONS NORMALS: normal inspection of the chest and normal palpation of entire chest wall Resp: COMMON NORMALS: normal respiratory effort, No retractions, No use of accessory muscles and clear to auscultation bilaterally AUSCULTATION: clear to auscultation bilaterally Cardio: COMMON NORMALS: regular rate, regular rhythm and No murmurs present (Cardio) RATE: regular rate RHYTHM: regular rhythm GI: COMMON NORMALS: Normal to inspection, nondistended, normoactive bowel sounds present, Soft to palpation, non-tender and no masses PALPATION: Yes Soft to palpation Extremity: COMMON NORMALS: normal to inspection and full ROM Neuro: COMMON NORMALS: patient oriented x3, moves all extremities and no focal motor deficits Psych: COMMON NORMALS: mental status grossly normal, Normal thought process present and cooperative THOUGHT PROCESS: Normal thought process present Skin: COMMON NORMALS: no rashes or lesions noted and no wounds GENERAL SKIN EXAM: no rashes or lesions noted Course 2 Vital Signs: Vital signs: Vital Signs Temperature 97.8 F 05/12/24 16:35 Pulse Rate 67 05/12/24 18:33 Respiratory Rate 16 05/12/24 16:35 Blood Pressure 124/82 05/12/24 18:33 Pulse Oximetry 96 05/12/24 18:33 Oxygen Delivery Me thod Room Air 05/12/24 16:52 MDM - Chest Pain Medical Decision Making Patient presents here with chest pain and atypical in nature he is pain-free currently his initial repeat troponins were negative he is stable for discharge his follow-up with PCP return if worsening he understands agrees to plan he has no signs of dissection or pulmonary embolism Medical Records I reviewed the patient's medical records. Lab Data I reviewed the patient's lab results. 05/12/24 17:04 05/12/24 17:04 Laboratory Results WBC 7.45 10^3/uL (3.29-11.43) 05/12/24 17:04 RBC 4.34 10^6/uL (3.85-5.65) 05/12/24 17:04 Hgb 13.20 g/dL (11.27-16.99) 05/12/24 17:04 Hct 40.8 % (37-53) 05/12/24 17:04 MCV 94.0 fl (82-101) 05/12/24 17:04 MCH 30.4 pg (27-33) 05/12/24 17:04 MCHC 32.4 g/dL (30-55) 05/12/24 17:04 RDW 12.7 % (12.1-15.1) 05/12/24 17:04 Plt Count 191 10^3/cmm (157-399) 05/12/24 17:04 MPV 10.1 fL (7.4-10.4) 05/12/24 17:04 Neut % (Auto) 47.9 % 05/12/24 17:04 Lymph % (Auto) 36.1 % 05/12/24 17:04 [place] % (Auto) 9.5 % 05/12/24 17:04 Eos % (Auto) 5.5 % 05/12/24 17:04 Baso % (Auto) 0.9 % 05/12/24 17:04 Neut # (Auto) 3.56 10^3/uL (1.8-7.7) 05/12/24 17:04 Lymph # (Auto) 2.7 10^3/uL (0.8-4.8) 05/12/24 17:04 [place] # (Auto) 0.7 10^3/uL (0.2-0.9) 05/12/24 17:04 Eos # (Auto) 0.4 10^3/uL (0.0-0.8) 05/12/24 17:04 Baso # (Auto) 0.1 10^3/uL (0.0-0.1) 05/12/24 17:04 Nucleated RBC % (auto) 0 % 05/12/24 17:04 Nucleated RBCs # 0.0 /100WBC 05/12/24 17:04 PT 13.00 SECONDS (12.1-14.9) 05/12/24 17:04 INR 0.95 (0.8-1.2) 05/12/24 17:04 Sodium 137 mmol/L (136-145) 05/12/24 17:04 Potassium 4.3 mmol/L (3.5-5.1) 05/12/24 17:04 Chloride 102 mmol/L (98-107) 05/12/24 17:04 Carbon Dioxide 24 mmol/L (22-29) 05/12/24 17:04 Anion Gap 15.3 (5-19) 05/12/24 17:04 BUN 14 mg/dL (8-23) 05/12/24 17:04 Creatinine 0.7 mg/dL (0.7-1.2) 05/12/24 17:04 GFR Calculation Not Reportable 05/12/24 17:04 Glucose 85 mg/dL (65-115) 05/12/24 17:04 Calculated Osmolality 284 mOsm/kg (285-295) L 05/12/24 17:04 Calcium 9.5 mg/dL (8.5-10.5) 05/12/24 17:04 Total Bilirubin 0.9 mg/dL (0.15-1.2) 05/12/24 17:04 AST 22 U/L (0-40) 05/12/24 17:04 ALT 24 U/L (0-41) 05/12/24 17:04 Alkaline Phosphatase 122 U/L (40-130) 05/12/24 17:04 Troponin T Baseline < 6 ng/L (0-15) 05/12/24 17:04 Troponin T 120 Minute 6.00 ng/L (0-15) 05/12/24 19:02 Delta Troponin T [id number] ABS# (0-10) 05/12/24 19:02 NT-Pro-B Natriuret Pep 106 pg/mL (0-125) 05/12/24 17:04 Total Protein 6.6 g/dL (6.6-8.7) 05/12/24 17:04 Albumin 4.2 g/dL (3.5-5.2) 05/12/24 17:04 Globulin 2.4 g/dL (1.3-4.6) 05/12/24 17:04 Lipase 37 U/L (13-60) 05/12/24 17:04 All radiology interpretation(s) finalized by discharge EKG Data EKG 1: I personally reviewed and interpreted this EKG as follows: EKG interpretation date: 05/12/24 EKG interpretation time: 16:33 Interpretation: nsr hr [address] or t wave abnormalities qs 106 qtc 406 EKG 2: I personally reviewed and interpreted this EKG as follows: EKG interpretation date: 05/12/24 EKG interpretation time: 18:18 Interpretation: nsr hr [address] elevation qrs 109 qtc 414 Clincial Decision Support The following clinical decision support tools were used to aid in care of the patient HEART Score -> History: Slightly Suspicous, EKG: Normal, Age: 65 or more yrs, Risk Factors: >/=3 Risk Factors, Troponin: Baseline Trop <16 ng/L. Resulting HEART Score: 4. Discharge Plan Discharge Patient Disposition: Home Clinical Impression: Chest pain Condition: Stable Prescriptions: No Action cholecalciferol (vitamin D3) 25 mcg (1,000 unit) capsule 25 mcg PO QAM aspirin [Adult Aspirin Regimen] 81 mg tablet,delayed release (DR/EC) 81 mg PO QAM Hold Instructions: Resume on 02/20/22. tamsulosin 0.4 mg capsule 0.4 mg PO BEDTIME nitroglycerin 0.4 mg tablet, sublingual 0.4 mg sublingual Q5M PRN (Reason: chest pain) Qty: 25 3RF Rx Instructions: do not exceed 3 doses per episode Plavix 75 mg tablet 75 mg PO QAM Qty: 90 3RF simvastatin 80 mg tablet See Rx Instructions .ROUTE .COMPLEX Qty: 90 3RF Dose Instruction: TAKE 1 TABLET EVERY EVENING Rx Instructions: TAKE 1 TABLET EVERY EVENING isosorbide mononitrate 30 mg tablet extended release 24 hr 30 mg PO QAM Qty: 90 3RF metoprolol tartrate 25 mg tablet See Rx Instructions .ROUTE .COMPLEX Qty: 90 3RF Dose Instruction: TAKE 1/2 TABLET TWICE DAILY Rx Instructions: TAKE 1/2 TABLET TWICE DAILY multivitamin Tablet 1 tab PO QAM levothyroxine 100 mcg tablet 100 mcg PO QAM Discharge Orders: Discharge ED (Routine); Ordered 05/12/24 Ordered By: Esperanza Whitt Referrals: Phil Baker MD [Primary Care Provider] - Discharge Diet: Advance as tolerated Discharge Activity: Resume usual activity Patient Instructions: Chest Pain (ED) Coding Level of Care Code ED Boiler Operator for Wilian Velazquez
[2024-05-12] MEDS: aspirin 81 mg Chew Tablet 324 MG PO (16:56)
[2024-05-12 17:16] LABS: Basophils # 0.1 10^3/uL (0.0-0.1); Basophils % 0.9 %; Eosinophils # 0.4 10^3/uL (0.0-0.8); Eosinophils % 5.5 %; Hematocrit 40.8 % (37-53); Lymphocytes # 2.7 10^3/uL (0.8-4.8); Lymphocytes % 36.1 %; Mean Corpuscular HGB Conc 32.4 g/dL (30-55); Mean Corpuscular Hemoglobin 30.4 pg (27-33); Mean Platelet Volume 10.1 fL (7.4-10.4); Monocytes # 0.7 10^3/uL (0.2-0.9); Monocytes % 9.5 %; Neutrophils # 3.56 10^3/uL (1.8-7.7); Neutrophils % 47.9 %; Nucleated Red Blood Cells % 0 %; Platelet Count 191 10^3/cmm (157-399); Red Blood Count 4.34 10^6/uL (3.85-5.65); Red Cell Distribution Width 12.7 % (12.1-15.1); White Blood Count 7.45 10^3/uL (3.29-11.43)
[2024-05-12 17:30] LABS: Troponin(5th) Baseline < 6 ng/L (0-15)
[2024-05-12 17:34] LABS: INR 0.95 (0.8-1.2)
[2024-05-12 17:50] LABS: Alanine Aminotransferase 24 U/L (0-41); Albumin Level 4.2 g/dL (3.5-5.2); Alkaline Phosphatase 122 U/L (40-130); Aspartate Amino Transferase 22 U/L (0-40); Blood Urea Nitrogen 14 mg/dL (8-23); Calcium 9.5 mg/dL (8.5-10.5); Carbon Dioxide 24 mmol/L (22-29); Chloride 102 mmol/L (98-107); Creatinine Clr Calc Pharmacy 93.6516; Globulin 2.4 g/dL (1.3-4.6); Glucose 85 mg/dL (65-115); Lipase 37 U/L (13-60); NT Pro B Type Natriuretic Pept 106 pg/mL (0-125); Osmolality Calculated 284 mOsm/kg (285-295); Sodium 137 mmol/L (136-145); Total Bilirubin 0.9 mg/dL (0.15-1.2); Total Protein 6.6 g/dL (6.6-8.7)
[2024-05-12 17:54] LABS: Anion Gap 15.3 (5-19); Potassium 4.3 mmol/L (3.5-5.1)
--- NOTE | 2024-05-12 18:28 | ECG_ITS ---
[facility] Test Date: 2024-05-12 Pat Name: Kasey Malone Jr Department: Room: Gender: Male El Teacher: : 1950 Requested By: Esperanza Whitt Order Number: [id number] Ric MD: Berto Martins M.D. Measurements Intervals [place] Rate: 63 P: 63 IN: 161 QRS: 61 QRSD: 109 T: 19 QT: 406 QTc: 417 Interpretive Statements SINUS RHYTHM POSSIBLE RIGHT VENTRICULAR CONDUCTION DELAY [RSR (QR) IN V1/V2] Compared to ECG 05/12/2024 16:33:18 No significant changes Electronically Signed On 05-13-2024 20:30:53 CDT by Berto Martins M.D. [id number]
[2024-05-12 18:33] VITALS: BP 124/82; PULSE 67; O2SAT 96
[2024-05-12 19:23] LABS: Troponin 5 2HR Delta 0.00001 ABS# (0-10)
[2024-05-12 19:39] VITALS: BP 132/86; PULSE 67; O2SAT 96
== END 2024-05-12 19:41 | disposition home or self-care (01) ==
PROVIDERS: Emergency Provider Emergency Medicine; PCP Family Medicine
DX: R07.9 Chest pain, unspecified (principal); Z79.02 Long term (current) use of antithrombotics/antiplatelets; Z79.82 Long term (current) use of aspirin; Z87.891 Personal history of nicotine dependence; I25.2 Old myocardial infarction; I25.10 Atherosclerotic heart disease of native coronary artery without angina pectoris; E78.5 Hyperlipidemia, unspecified
CPT/HCPCS: 36415; 80053; 83690; 83880; 84484; 85025; 85610; 93005; 99284

== ENCOUNTER → 2024-07-18 14:53 | Outpatient (BNVA) | payer MEDICARE, SELFPAY | PROVIDERS: PCP Family Medicine; Visit Provider Internal Medicine Cardiovascular Disease | DX: I25.10 Atherosclerotic heart disease of native coronary artery without angina pectoris (principal); E78.5 Hyperlipidemia, unspecified; I34.0 Nonrheumatic mitral (valve) insufficiency; I10 Essential (primary) hypertension; Z87.891 Personal history of nicotine dependence | CPT/HCPCS: 99214 ==

== ENCOUNTER 2024-07-25 20:00 | Emergency (ER) | payer MEDICARE, SELFPAY ==
[2024-07-25 20:04] VITALS: BP 151/93; PULSE 83; RESP 16; TEMP 36.7; O2SAT 96
--- NOTE | 2024-07-25 21:07 | ED_ITS ---
HPI - Male Genitourinary 2 General: Chief complaint: Urogenital-Male Stated complaint: can not urinate, pain Time Seen by Provider: 07/25/24 20:52 Source: patient Mode of arrival: ambulatory Limitations: no limitations History of Present Illness: 73-year-old male states had a history of enlarged prostate states is not been able to urinate all the day states is only been able to just dribble states he has pain in his lower abdomen feels like his bladder is full denies any fever denies any vomiting has no other complaints Associated symptoms: Deny nausea or vomiting Related Data Home Medications Medication Instructions Recorded Confirmed aspirin 81 mg tablet,delayed 81 mg PO QAM 09/28/19 03/22/24 release (Adult Aspirin Regimen) tamsulosin 0.4 mg capsule 0.4 mg PO BEDTIME 01/27/20 03/22/24 cholecalciferol (vitamin D3) 25 25 mcg PO QAM 07/22/21 03/22/24 mcg (1,000 unit) capsule levothyroxine 100 mcg tablet 100 mcg PO QAM 03/05/23 03/22/24 multivitamin 1 tab PO QAM 03/05/23 03/22/24 Previous Rx's Medication Instructions Recorded clopidogrel 75 mg tablet (Plavix) 75 mg PO QAM #90 tabs 07/03/23 simvastatin 80 mg tablet See Rx Instructions .Route 09/09/23 .COMPLEX #90 tabs isosorbide mononitrate 30 mg 30 mg PO QAM #90 tabs 03/16/24 tablet,extended release 24 hr metoprolol tartrate 25 mg tablet See Rx Instructions .Route 04/01/24 .COMPLEX #90 tabs nitroglycerin 0.4 mg sublingual 0.4 mg sublingual Q5M PRN chest 07/18/24 tablet pain #25 tabs Allergies Allergy/AdvReac Type Severity Reaction Status Date / Time oxycodone Allergy Unknown head Verified 07/25/24 20:07 spinning hydrocodone Allergy ADR-Irritab Verified 07/25/24 20:07 le tramadol Allergy head Verified 07/25/24 20:07 spinning Review of Systems 2 Const: Denies: fever(s), chills, body aches or change in appetite ENMT: Denies: throat pain or dental pain Card: Denies: chest pain Resp: Denies: dyspnea GI: Reports: abdominal pain; Denies: nausea, vomiting or diarrhea : Reports: difficulty urinating Musc: Denies: neck pain or back pain Skin/Breast: Denies: rash Neuro: Denies: headache(s) PFSH ED 2 PFSH: Medical History senior living (current) use of opiate analgesic Pain management contract signed Stable angina Cervical spondylosis Erectile dysfunction Non-ST elevation MD (NSTEMI) CAD (coronary artery disease) 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 Surgical History History of cardiac cath CAD s/p stent to LAD and RCA in 2019 Hx of left inguinal hernia repair Family History Mother Dementia Hypertension CAD (coronary artery disease) Denies family history of Diabetes Clotting disorder Hyperlipidemia Psychiatric illness Chronic kidney disease (CKD) Suicide Anesthesia complication Bleeding disorder Family history of premature coronary artery disease Lung disease Cancer Stroke Social History Smoking and tobacco/nicotine status: former use of tobacco/nicotine Quit status (tobacco/nicotine): has quit using Year quit tobacco: 2019 Former quit date comment: 1 ppd X 50 years Alcohol intake: never Substance/Drug Use: never Marital status: Physical Exam 2 Const: COMMON NORMALS: no acute distress, patient oriented x3 and healthy appearing HENMT: COMMON NORMALS: normocephalic and atraumatic HEAD & SCALP: n ormocephalic and atraumatic Eye: COMMON NORMALS: Equal, round and reactive pupils present and EOMs intact bilaterally PUPIL: Yes Equal, round and reactive pupils present Neck/C-Spine: COMMON NORMALS: full ROM and supple Chest: COMMONS NORMALS: normal inspection of the chest and normal palpation of entire chest wall Resp: COMMON NORMALS: normal respiratory effort and clear to auscultation bilaterally AUSCULTATION: clear to auscultation bilaterally Cardio: COMMON NORMALS: regular rate RATE: regular rate GI: COMMON NORMALS: Normal to inspection, nondistended, normoactive bowel sounds present, Soft to palpation, non-tender and no masses PALPATION: Yes Soft to palpation Extremity: COMMON NORMALS: normal to inspection and full ROM Neuro: COMMON NORMALS: patient oriented x3, moves all extremities and no focal motor deficits Psych: COMMON NORMALS: mental status grossly normal, Normal thought process present and cooperative THOUGHT PROCESS: Normal thought process present Skin: COMMON NORMALS: no rashes or lesions noted and no wounds GENERAL SKIN EXAM: no rashes or lesions noted Course 2 Vital Signs: Vital signs: Vital Signs Temperature 98.0 F 07/25/24 20:04 Pulse Rate 83 07/25/24 20:04 Respiratory Rate 16 07/25/24 20:04 Blood Pressure 151/93 07/25/24 20:04 Pulse Oximetry 96 07/25/24 20:04 [facility] - Male Medical Decision Making Patient presents for difficulty urinating at home he has been well-appearing here place a Lauren had minimal urine out had no UTI kidney function here is normal he states he has not drink much today because they went to [employer] could be causing his issues his exam is benign no signs of acute abdomen stable for discharge Medical Records I reviewed the patient's medical records. Lab Data I reviewed the patient's lab results. 07/25/24 21:43 Laboratory Results Sodium 137 mmol/L (136-145) 07/25/24 21:43 Potassium 4.2 mmol/L (3.5-5.1) 07/25/24 21:43 Chloride 104 mmol/L (98-107) 07/25/24 21:43 Carbon Dioxide 23 mmol/L (22-29) 07/25/24 21:43 Anion Gap 14.2 (5-19) 07/25/24 21:43 BUN 17 mg/dL (8-23) 07/25/24 21:43 Creatinine 0.7 mg/dL (0.7-1.2) 07/25/24 21:43 GFR Calculation Not Reportable 07/25/24 21:43 Glucose 107 mg/dL (65-115) 07/25/24 21:43 Calculated Osmolality 286 mOsm/kg (285-295) 07/25/24 21:43 Calcium 10.3 mg/dL (8.5-10.5) 07/25/24 21:43 Urine Color Yellow (Yellow) 07/25/24 21:43 Urine Appearance Cloudy (CLEAR) A 07/25/24 21:43 Urine pH 5.0 (5-7) 07/25/24 21:43 Ur Specific [place] 1.036 (1.005-1.030) H 07/25/24 21:43 Urine Protein Trace (Negative) A 07/25/24 21:43 Urine Glucose (UA) Negative (Normal) 07/25/24 21:43 Urine Ketones Negative (Negative) 07/25/24 21:43 Urine Blood Negative (Negative) 07/25/24 21:43 Urine Nitrate Negative (Negative) 07/25/24 21:43 Urine Bilirubin Negative (Negative) 07/25/24 21:43 Urine Urobilinogen 1.0 mg/dL (Negative) 07/25/24 21:43 Ur Leukocyte Esterase Negative (Negative) 07/25/24 21:43 Urine RBC 0-4 /hpf (0-2) H 07/25/24 21:43 Urine WBC None /hpf (0-5) 07/25/24 21:43 Ur Squamous Epith Cells None /hpf (0-5) 07/25/24 21:43 Calcium Oxalate Crystal 15-25 /hpf H 07/25/24 21:43 Amorphous Sediment Not Reportable 07/25/24 21:43 Urine Bacteria Trace /hpf (NONE) 07/25/24 21:43 Urine Mucus 2+ /hpf 07/25/24 21:43 No radiology studies performed this visit Discharge Plan Discharge Patient Disposition: Home Clinical Impression: Difficulty urinating Condition: Stable Prescriptions: No Action cholecalciferol (vitamin D3) 25 mcg (1,000 unit) capsule 25 mcg PO QAM aspirin [Adult Aspirin Regimen] 81 mg tablet,delayed release (DR/EC) 81 mg PO QAM Hold Instructions: Resume on 02/20/22. tamsulosin 0.4 mg capsule 0.4 mg PO BEDTIME nitroglycerin 0.4 mg tablet, sublingual 0.4 mg sublingual Q5M PRN (Reason: chest pain) Qty: 25 3RF Rx Instructions: do not exceed 3 doses per episode Plavix 75 mg tablet 75 mg PO QAM Qty: 90 3RF simvastatin 80 mg tablet See Rx Instructions .ROUTE .COMPLEX Qty: 90 3RF Dose Instruction: TAKE 1 TABLET EVERY EVENING Rx Instructions: TAKE 1 TABLET EVERY EVENING isosorbide mononitrate 30 mg tablet extended release 24 hr 30 mg PO QAM Qty: 90 3RF metoprolol tartrate 25 mg tablet See Rx Instructions .ROUTE .COMPLEX Qty: 90 3RF Dose Instruction: TAKE 1/2 TABLET TWICE DAILY Rx Instructions: TAKE 1/2 TABLET TWICE DAILY multivitamin Tablet 1 tab PO QAM levothyroxine 100 mcg tablet 100 mcg PO QAM Discharge Orders: Discharge ED (Routine); Ordered 07/25/24 Ordered By: Esperanza Whitt Referrals: Phil Baker MD [Primary Care Provider] - Discharge Diet: Advance as tolerated Discharge Activity: Resume usual activity Patient Instructions: Urinary Retention in Men (ED) Coding Level of Care Code ED Lathe Set Up Operator for Wilian Velazquez
[2024-07-25 21:57] LABS: Bilirubin Urine Negative (Negative); Blood Urine Negative (Negative); Glucose Urine UA Negative (Normal); Ketones Urine Negative (Negative); Leukocyte Esterase Urine Negative (Negative); Nitrate Urine Negative (Negative); Protein Urine Trace (Negative); Urine Appearance Cloudy (CLEAR); Urine Color Yellow (Yellow)
[2024-07-25 22:11] LABS: Add Urine Microscopic? YES; Bacteria Urine TRACE /hpf; Calcium Oxalate Crystals Urine 15-25 /hpf; Mucus Urine 2+ /hpf; RBC Urine 0-4 /hpf (0-2); Specific Gravity, Urine 1.036 (1.005-1.030); UA Manual Slide Review YES
[2024-07-25 22:12] LABS: Anion Gap 14.2 (5-19); Blood Urea Nitrogen 17 mg/dL (8-23); Calcium 10.3 mg/dL (8.5-10.5); Carbon Dioxide 23 mmol/L (22-29); Chloride 104 mmol/L (98-107); Creatinine Clr Calc Pharmacy 91.9384; Glucose 107 mg/dL (65-115); Osmolality Calculated 286 mOsm/kg (285-295); Potassium 4.2 mmol/L (3.5-5.1); Sodium 137 mmol/L (136-145)
--- NOTE | 2024-07-27 10:01 | DCPLANNER ---
Referral for Urology Sent to [facility]
== END 2024-07-25 22:36 | disposition home or self-care (01) ==
PROVIDERS: Emergency Provider Emergency Medicine; PCP Family Medicine
DX: R30.0 Dysuria (principal); Z87.891 Personal history of nicotine dependence; E78.5 Hyperlipidemia, unspecified; I25.10 Atherosclerotic heart disease of native coronary artery without angina pectoris
CPT/HCPCS: 51702; 80048; 81001; 99283

== ENCOUNTER 2024-07-26 11:26 | Outpatient (CLI) | payer MEDICARE, SELFPAY ==
[2024-07-26 12:24] LABS: Basophils # 0.1 10^3/uL (0.0-0.1); Basophils % 0.6 %; Eosinophils # 0.2 10^3/uL (0.0-0.8); Eosinophils % 1.6 %; Hematocrit 40.7 % (37-53); Lymphocytes # 3.7 10^3/uL (0.8-4.8); Lymphocytes % 35.9 %; Mean Corpuscular HGB Conc 31.4 g/dL (30-55); Mean Corpuscular Hemoglobin 28.5 pg (27-33); Mean Corpuscular Volume 90.6 fl (82-101); Mean Platelet Volume 9.6 fL (7.4-10.4); Monocytes # 0.9 10^3/uL (0.2-0.9); Monocytes % 8.5 %; Neutrophils # 5.52 10^3/uL (1.8-7.7); Neutrophils % 53.2 %; Nucleated Red Blood Cells % 0 %; Platelet Count 191 10^3/cmm (157-399); Red Blood Count 4.49 10^6/uL (3.85-5.65); Red Cell Distribution Width 14.6 % (12.1-15.1); White Blood Count 10.38 10^3/uL (3.29-11.43)
[2024-07-26 12:28] LABS: Bilirubin Urine Negative (Negative); Blood Urine Negative (Negative); Glucose Urine UA Negative (Normal); Ketones Urine Negative (Negative); Leukocyte Esterase Urine Trace (Negative); Nitrate Urine Negative (Negative); Protein Urine Negative (Negative); Specific Gravity, Urine 1.027 (1.005-1.030); Urine Appearance Clear (CLEAR); Urine Color Yellow (Yellow); pH Urine 5.5 (5-7)
[2024-07-26 12:41] LABS: C Reactive Protein 7.4 mg/L (0.0-4.9)
[2024-07-26 12:54] LABS: UA Manual Slide Review YES; UA Slide Review UA Slide Review Perf
[2024-07-26 12:57] LABS: Add Urine Culture? No; Bacteria Urine TRACE /hpf; RBC Urine 0-4 /hpf (0-2); Squamous Epithelial Cell Urine 0-4 /hpf (0-5)
== END 2024-07-26 11:27 | disposition home or self-care (01) ==
LOC: LAB 11:28
PROVIDERS: PCP Family Medicine; Visit Provider Family Medicine
DX: R10.31 Right lower quadrant pain (principal)
CPT/HCPCS: 36415; 81001; 85025; 86140

== ENCOUNTER 2024-07-26 12:21 | Outpatient (CLI) | payer MEDICARE, SELFPAY ==
--- NOTE | 2024-07-26 12:24 | USR_ITS ---
PROCEDURE INFORMATION: Exam: US Abdomen, Limited; Appendix Exam date and time: 07/26/2024 12:32 PM Age: 73 years old Clinical indication: Abdominal pain; Localized; Right lower quadrant (rlq); Additional info: Rlq abdominal pain, stat TECHNIQUE: Imaging protocol: Real time ultrasound of the abdomen with image documentation. Limited exam focused on the appendix. COMPARISON: US abdomen limited [id number] 03/06/2023 9:16 AM FINDINGS: Appendix: The appendix is not definitively visualized on these images. No fluid collections are seen within the right lower quadrant US/US appendix [id number] IMPRESSION: Nonvisualization of the appendix, therefore acute appendicitis cannot be excluded on this study. If further evaluation is indicated, correlation with CT of the abdomen and pelvis with contrast is suggested
== END 2024-07-26 12:22 | disposition home or self-care (01) ==
PROVIDERS: PCP Family Medicine; Visit Provider Family Medicine
DX: R10.31 Right lower quadrant pain (principal)
CPT/HCPCS: 76705

== ENCOUNTER 2024-07-27 02:35 | Emergency (ER) | payer MEDICARE, SELFPAY ==
[2024-07-27] VITALS (10 sets, daily range): BP systolic 127–157; BP diastolic 83–100; PULSE 84–101; RESP 15; TEMP 36.4; O2SAT 95–98; BMI 21.7
--- NOTE | 2024-07-27 03:36 | CTR_ITS ---
PROCEDURE INFORMATION: Exam: CT Abdomen And Pelvis With Contrast Exam date and time: 07/27/2024 3:46 AM Age: 73 years old Clinical indication: Abdominal pain; Generalized; Prior surgery; Surgery date: 6+ months; Surgery type: Left inguinal hernia repair, 2 stents with heart cath; Additional info: Right lower quadrant abdominal pain, nausea TECHNIQUE: Imaging protocol: Computed tomography of the abdomen and pelvis with contrast. Radiation optimization: All CT scans at this facility use at least one of these dose optimization techniques: automated exposure control; mA and/or kV adjustment per patient size (includes targeted exams where dose is matched to clinical indication); or iterative reconstruction. Contrast material: OMNI 350; Contrast volume: 100 ml; Contrast route: INTRAVENOUS (IV); COMPARISON: PT PET skull to thigh INIT [id number] 04/05/2024 9:30 AM RADIATION DOSE METRICS: Total DLP (mGy-cm): 499.65 FINDINGS: Diaphragm: Small hiatal hernia is present. Liver: 2.6 cm cyst noted in the right hepatic lobe. Gallbladder and biliary ducts: Mildly distended gallbladder containing gallstones noted. No surrounding inflammatory changes. No biliary ductal dilatation. Pancreas: Normal. No ductal dilation. Spleen: Normal. No splenomegaly. Adrenal glands: Normal. No mass. Kidneys and ureters: See Urinary bladder finding. Stomach and bowel: There is diverticulosis without evidence of diverticulitis. Appendix: No evidence of appendicitis. Intraperitoneal space: Unremarkable. No free air. No significant fluid collection. Vasculature: No aortic aneurysm. No aortic dissection. Mild diffuse atherosclerotic disease is present. Lymph nodes: Unremarkable. No enlarged lymph nodes. Urinary bladder: There is asymmetric thickening of the right posterolateral wall of the urinary bladder and wall thickening of the adjacent distal ureter. This finding in association with a 0.3 cm obstructing stone in the right distal ureter, resulting mild hydronephrosis and slightly delayed nephrogram. No kidney mass seen. Reproductive: Unremarkable as visualized. Bones/joints: Degenerative changes of the spine seen. Small bone islands noted in the medial left iliac bone. Soft tissues: Unremarkable. CT/CT abdomen pelvis w con* [id number] IMPRESSION: Asymmetric thickening of the right posterolateral urinary bladder wall, in association with wall thickening of the distal ureter, and 0.3 cm obstructing stone in the right distal ureter, resulting in mild hydronephrosis and delayed nephrogram. These findings may be secondary to infectious/inflammatory process. Combination of mass lesion and obstructing stone should also be considered.
--- NOTE | 2024-07-27 03:38 | ED_ITS ---
Documented by User: Willi AlejandroDO 07/27/24 18:49 HPI - Abdominal Pain 2 General: Chief Complaint: Abdominal Pain Stated Complaint: UTI and Append fron Primary Time Seen by Provider: 07/27/24 03:11 History of Present Illness: Patient resents to the ER with right lower quadrant abdominal pain and nausea. Patient said that he has been to this ER 1 time into his primary care doctor 1 time in the last 3 days he got diagnosed with a UTI started on antibiotics had repeat lab work done ultrasound of his right lower quadrant which was again inconclusive and he still having pain and nausea. Related Data Home Medications Medication Instructions Recorded Confirmed aspirin 81 mg tablet,delayed 81 mg PO QAM 09/28/19 03/22/24 release (Adult Aspirin Regimen) cholecalciferol (vitamin D3) 25 25 mcg PO QAM 07/22/21 03/22/24 mcg (1,000 unit) capsule levothyroxine 100 mcg tablet 100 mcg PO QAM 03/05/23 03/22/24 multivitamin 1 tab PO QAM 03/05/23 03/22/24 Previous Rx's Medication Instructions Recorded clopidogrel 75 mg tablet (Plavix) 75 mg PO QAM #90 tabs 07/03/23 simvastatin 80 mg tablet See Rx Instructions .Route 09/09/23 .COMPLEX #90 tabs metoprolol tartrate 25 mg tablet See Rx Instructions .Route 04/01/24 .COMPLEX #90 tabs nitroglycerin 0.4 mg sublingual 0.4 mg sublingual Q5M PRN chest 07/18/24 tablet pain #25 tabs hydrocodone 5 mg-acetaminophen 325 1 tab PO Q6H PRN pain #20 tabs 07/27/24 mg tablet tamsulosin 0.4 mg capsule 0.8 mg (2 x 0.4 mg) PO BEDTIME #60 07/27/24 caps isosorbide mononitrate 30 mg 30 mg PO QAM #90 tabs 07/29/24 tablet,extended release 24 hr Allergies Allergy/AdvReac Type Severity Reaction Status Date / Time oxycodone Allergy Unknown head Verified 07/27/24 03:08 spinning hydrocodone Allergy ADR-Irritab Verified 07/27/24 03:08 le tramadol Allergy head Verified 07/27/24 03:08 spinning Review of Systems 2 General: Reports: 10 or more systems reviewed and unremarkable except in HPI and below PFSH ED 2 PFSH: Medical History 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 Pain management contract signed Stable angina Cervical spondylosis Erectile dysfunction Non-ST elevation [place] (NSTEMI) CAD (coronary artery disease) 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 Surgical History History of cardiac cath CAD s/p stent to LAD and RCA in 2019 Hx of left inguinal hernia repair Family History Mother Dementia Hypertension CAD (coronary artery disease) Denies family history of Diabetes Clotting disorder Hyperlipidemia Psychiatric illness Chronic kidney disease (CKD) Suicide Anesthesia complication Bleeding disorder Family history of premature coronary artery disease Lung disease Cancer Stroke Social History Smoking and tobacco/nicotine status: former use of tobacco/nicotine Quit status (tobacco/nicotine): has quit using Year quit tobacco: 2019 Former quit date comment: 1 ppd X 50 years Alcohol intake: never Substance/Drug Use: never Marital status: Physical Exam 2 Const: COMMON NORMALS: no acute distress, average body habitus, patient oriented x3, no limitations, healthy appearing, alert and well nourished HENMT: COMMON NORMALS: normocephalic, atraumatic, hearing grossly normal bilaterally, external ears normal, Normal external nose present and moist oral mucous membranes HEAD & SCALP: normocephalic and atraumatic NOSE: Normal external nose present EXTERNAL EAR: Yes external ears normal Neck/C-Spine: COMMON NORMALS: no JVD Chest: COMMONS NORMALS: normal inspection of the chest and normal palpation of entire chest wall Resp: COMMON NORMALS: normal respiratory effort, No retractions, No use of accessory muscles and clear to auscultation bilaterally AUSCULTATION: clear to auscultation bilaterally Cardio: COMMON NORMALS: no JVD, regular rate, regular rhythm, S1 normal heart sound present, S2 normal heart sound present, No gallops present (Cardio), No clicks present (Cardio), No murmurs present (Cardio) and No rub (Cardio) R ATE: regular rate RHYTHM: regular rhythm HEART SOUNDS: S1 normal heart sound present and S2 normal heart sound present GI: COMMON NORMALS: Normal to inspection, nondistended, normoactive bowel sounds present, Soft to palpation, No hepatosplenomegaly present and no masses; negative for non-tender (Mildly tender over right lower quadrant) PALPATION: Yes Soft to palpation and Yes No hepatosplenomegaly present Neuro: COMMON NORMALS: patient oriented x3 SENSORIUM/ORIENTATION: Yes alert Course 2 Vital Signs: Vital signs: Vital Signs Temperature 97.5 F L 07/27/24 02:54 Pulse Rate 96 07/27/24 08:06 Respiratory Rate 15 07/27/24 03:36 Blood Pressure 143/89 07/27/24 08:06 Pulse Oximetry 98 07/27/24 08:06 Oxygen Delivery Me thod Room Air 07/27/24 06:30 MDM - Abdominal Pain Medical Decision Making Patient presents to the ER for the second time in 3 days and after seeing his primary care doctor. There was suspicions of right lower quadrant pain appendicitis, patient already had lab work and a nondiagnostic right lower quadrant ultrasound. Patient had a CT scan results are pending. Patient care will be transferred over to Dr. Rodriguez. Medical Records I reviewed the patient's medical records. Lab Data I reviewed the patient's lab results. 07/27/24 03:16 07/27/24 03:16 Labs/Radiology: Radiology Impressions Abdomen/Pelvis CT 07/27/24 03:36 IMPRESSION: Asymmetric thickening of the right posterolateral urinary bladder wall, in association with wall thickening of the distal ureter, and 0.3 cm obstructing stone in the right distal ureter, resulting in mild hydronephrosis and delayed nephrogram. These findings may be secondary to infectious/inflammatory process. Combination of mass lesion and obstructing stone should also be considered. Laboratory Results WBC 9.92 10^3/uL (3.29-11.43) 07/27/24 03:16 RBC 4.53 10^6/uL (3.85-5.65) 07/27/24 03:16 Hgb 13.40 g/dL (11.27-16.99) 07/27/24 03:16 Hct 41.4 % (37-53) 07/27/24 03:16 MCV 91.4 fl (82-101) 07/27/24 03:16 MCH 29.6 pg (27-33) 07/27/24 03:16 MCHC 32.4 g/dL (30-55) 07/27/24 03:16 RDW 14.8 % (12.1-15.1) 07/27/24 03:16 Plt Count 185 10^3/cmm (157-399) 07/27/24 03:16 MPV 9.5 fL (7.4-10.4) 07/27/24 03:16 Neut % (Auto) 56.6 % 07/27/24 03:16 Lymph % (Auto) 32.7 % 07/27/24 03:16 [place] % (Auto) 8.1 % 07/27/24 03:16 Eos % (Auto) 2.1 % 07/27/24 03:16 Baso % (Auto) 0.4 % 07/27/24 03:16 Neut # (Auto) 5.62 10^3/uL (1.8-7.7) 07/27/24 03:16 Lymph # (Auto) 3.2 10^3/uL (0.8-4.8) 07/27/24 03:16 [place] # (Auto) 0.8 10^3/uL (0.2-0.9) 07/27/24 03:16 Eos # (Auto) 0.2 10^3/uL (0.0-0.8) 07/27/24 03:16 Baso # (Auto) 0.0 10^3/uL (0.0-0.1) 07/27/24 03:16 Nucleated RBC % (auto) 0 % 07/27/24 03:16 Nucleated RBCs # 0.0 /100WBC 07/27/24 03:16 Sodium 140 mmol/L (136-145) 07/27/24 03:16 Potassium 4.1 mmol/L (3.5-5.1) 07/27/24 03:16 Chloride 104 mmol/L (98-107) 07/27/24 03:16 Carbon Dioxide 27 mmol/L (22-29) 07/27/24 03:16 Anion Gap 13.1 (5-19) 07/27/24 03:16 BUN 13 mg/dL (8-23) 07/27/24 03:16 Creatinine 1.0 mg/dL (0.7-1.2) 07/27/24 03:16 GFR Calculation Not Reportable 07/27/24 03:16 Glucose 96 mg/dL (65-115) 07/27/24 03:16 Calculated Osmolality 290 mOsm/kg (285-295) 07/27/24 03:16 Calcium 10.0 mg/dL (8.5-10.5) 07/27/24 03:16 Total Bilirubin 1.3 mg/dL (0.15-1.2) H 07/27/24 03:16 AST 19 U/L (0-40) 07/27/24 03:16 ALT 20 U/L (0-41) 07/27/24 03:16 Alkaline Phosphatase 151 U/L (40-130) H 07/27/24 03:16 C-Reactive Protein 19.6 mg/L (0.0-4.9) H 07/27/24 03:16 Total Protein 7.1 g/dL (6.6-8.7) 07/27/24 03:16 Albumin 4.2 g/dL (3.5-5.2) 07/27/24 03:16 Globulin 2.9 g/dL (1.3-4.6) 07/27/24 03:16 Urine Color Yellow (Yellow) 07/27/24 03:16 Urine Appearance Clear (CLEAR) 07/27/24 03:16 Urine pH 5.5 (5-7) 07/27/24 03:16 Ur Specific [place] 1.020 (1.005-1.030) 07/27/24 03:16 Urine Protein Negative (Negative) 07/27/24 03:16 Urine Glucose (UA) Negative (Normal) 07/27/24 03:16 Urine Ketones Negative (Negative) 07/27/24 03:16 Urine Blood Negative (Negative) 07/27/24 03:16 Urine Nitrate Negative (Negative) 07/27/24 03:16 Urine Bilirubin Negative (Negative) 07/27/24 03:16 Urine Urobilinogen 0.2 mg/dL (Negative) 07/27/24 03:16 Ur Leukocyte Esterase Negative (Negative) 07/27/24 03:16 Urine RBC 0-2 /hpf (0-2) 07/27/24 03:16 Urine WBC 0-5 /hpf (0-5) 07/27/24 03:16 Ur Squamous Epith Cells 0-5 /hpf (0-5) 07/27/24 03:16 Amorphous Sediment Not Reportable 07/27/24 03:16 Urine Bacteria None seen /hpf (NONE) 07/27/24 03:16 Hyaline Casts 0.40 /lpf 07/27/24 03:16 All radiology interpretation(s) finalized by discharge Discharge Plan Discharge Patient Disposition: Home Clinical Impression: Ureterolithiasis Condition: Stable Prescriptions: New hydrocodone-acetaminophen 5-325 mg tablet 1 tab PO Q6H PRN (Reason: pain) Qty: 20 0RF Changed tamsulosin 0.4 mg capsule 0.8 mg PO BEDTIME Qty: 60 0RF No Action cholecalciferol (vitamin D3) 25 mcg (1,000 unit) capsule 25 mcg PO QAM aspirin [Adult Aspirin Regimen] 81 mg tablet,delayed release (DR/EC) 81 mg PO QAM Hold Instructions: Resume on 02/20/22. nitroglycerin 0.4 mg tablet, sublingual 0.4 mg sublingual Q5M PRN (Reason: chest pain) Qty: 25 3RF Rx Instructions: do not exceed 3 doses per episode Plavix 75 mg tablet 75 mg PO QAM Qty: 90 3RF simvastatin 80 mg tablet See Rx Instructions .ROUTE .COMPLEX Qty: 90 3RF Dose Instruction: TAKE 1 TABLET EVERY EVENING Rx Instructions: TAKE 1 TABLET EVERY EVENING metoprolol tartrate 25 mg tablet See Rx Instructions .ROUTE .COMPLEX Qty: 90 3RF Dose Instruction: TAKE 1/2 TABLET TWICE DAILY Rx Instructions: TAKE 1/2 TABLET TWICE DAILY isosorbide mononitrate 30 mg tablet extended release 24 hr 30 mg PO QAM Qty: 90 3RF multivitamin Tablet 1 tab PO QAM levothyroxine 100 mcg tablet 100 mcg PO QAM Discharge Orders: Discharge ED (Routine); Ordered 07/27/24 Ordered By: Yfn Tenorio Referrals: Phil Baker MD [Primary Care Provider] - Patient Instructions: Kidney Stones (ED), How to Strain Your Urine (ED), Opioid Safety, Pain Management Activity Restrictions/Additional Instructions: Thank you for choosing [facility] for your healthcare needs today. It is very important that you follow up as instructed or that you return to the Emergency Department should you have concerns or if your condition changes or worsens in any way. You were seen in the emergency room for continued right flank pain. CT shows thickening of the bladder wall and what appears to be a 3 mm stone in the right distal ureter with some swelling of the kidney. Case management make arrangements for you to follow-up with urologist. Sign Out Sign Out Data: Patient Sign Out occurred on 07/27/24 at 07:03. Patient's care was discussed, and care was transferred from Willi Allen DO to Yfn Tenorio DO. Coding Level of Care Code ED Wood Buffer for Chg Fwd Documented by User: Yfn Tenorio DO 08/02/24 17:28 HPI - Abdominal Pain 2 General: Chief Complaint: Abdominal Pain Stated Complaint: UTI and Append fron Primary Time Seen by Provider: 07/27/24 03:11 Related Data Home Medications Medication Instructions Recorded Confirmed aspirin 81 mg tablet,delayed 81 mg PO QAM 09/28/19 03/22/24 release (Adult Aspirin Regimen) cholecalciferol (vitamin D3) 25 25 mcg PO QAM 07/22/21 03/22/24 mcg (1,000 unit) capsule levothyroxine 100 mcg tablet 100 mcg PO QAM 03/05/23 03/22/24 multivitamin 1 tab PO QAM 03/05/23 03/22/24 Previous Rx's Medication Instructions Recorded clopidogrel 75 mg tablet (Plavix) 75 mg PO QAM #90 tabs 07/03/23 simvastatin 80 mg tablet See Rx Instructions .Route 09/09/23 .COMPLEX #90 tabs metoprolol tartrate 25 mg tablet See Rx Instructions .Route 04/01/24 .COMPLEX #90 tabs nitroglycerin 0.4 mg sublingual 0.4 mg sublingual Q5M PRN chest 07/18/24 tablet pain #25 tabs hydrocodone 5 mg-acetaminophen 325 1 tab PO Q6H PRN pain #20 tabs 07/27/24 mg tablet tamsulosin 0.4 mg capsule 0.8 mg (2 x 0.4 mg) PO BEDTIME #60 07/27/24 caps isosorbide mononitrate 30 mg 30 mg PO QAM #90 tabs 07/29/24 tablet,extended release 24 hr Allergies Allergy/AdvReac Type Severity Reaction Status Date / Time oxycodone Allergy Unknown head Verified 07/27/24 03:08 spinning hydrocodone Allergy ADR-Irritab Verified 07/27/24 03:08 le tramadol Allergy head Verified 07/27/24 03:08 spinning COUNT INCLUDES THE [facility] ED 2 PFSH: Medical History 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 Pain management contract signed Stable angina Cervical spondylosis Erectile dysfunction Non-ST elevation [place] (NSTEMI) CAD (coronary artery disease) 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 Surgical History History of cardiac cath CAD s/p stent to LAD and RCA in 2019 Hx of left inguinal hernia repair Family History Mother Dementia Hypertension CAD (coronary artery disease) Denies family history of Diabetes Clotting disorder Hyperlipidemia Psychiatric illness Chronic kidney disease (CKD) Suicide Anesthesia complication Bleeding disorder Family history of premature coronary artery disease Lung disease Cancer Stroke Social History Smoking and tobacco/nicotine status: former use of tobacco/nicotine Quit status (tobacco/nicotine): has quit using Year quit tobacco: 2019 Former quit date comment: 1 ppd X 50 years Alcohol intake: never Substance/Drug Use: never Marital status: Course 2 Vital Signs: Vital signs: Vital Signs Temperature 97.5 F L 07/27/24 02:54 Pulse Rate 96 07/27/24 08:06 Respiratory Rate 15 07/27/24 03:36 Blood Pressure 143/89 07/27/24 08:06 Pulse Oximetry 98 07/27/24 08:06 Oxygen Delivery Me thod Room Air 07/27/24 06:30 MDM - Abdominal Pain Medical Decision Making Patient presents to the ER for the second time in 3 days and after seeing his primary care doctor. There was suspicions of right lower quadrant pain appendicitis, patient already had lab work and a nondiagnostic right lower quadrant ultrasound. Patient had a CT scan results are pending. Patient care will be transferred over to Dr. Rodriguez. Care assumed at change of shift. CT shows 3 mm distal ureteral obstructing stone. CT shows 3 mild hydronephrosis no signs of infection will discharge home with pain medications tamsulosin and strain urine referral to urology Lab Data 07/27/24 03:16 07/27/24 03:16 Labs/Radiology: Radiology Impressions Abdomen/Pelvis CT 07/27/24 03:36 IMPRESSION: Asymmetric thickening of the right posterolateral urinary bladder wall, in association with wall thickening of the distal ureter, and 0.3 cm obstructing stone in the right distal ureter, resulting in mild hydronephrosis and delayed nephrogram. These findings may be secondary to infectious/inflammatory process. Combination of mass lesion and obstructing stone should also be considered. Laboratory Results WBC 9.92 10^3/uL (3.29-11.43) 07/27/24 03:16 RBC 4.53 10^6/uL (3.85-5.65) 07/27/24 03:16 Hgb 13.40 g/dL (11.27-16.99) 07/27/24 03:16 Hct 41.4 % (37-53) 07/27/24 03:16 MCV 91.4 fl (82-101) 07/27/24 03:16 MCH 29.6 pg (27-33) 07/27/24 03:16 MCHC 32.4 g/dL (30-55) 07/27/24 03:16 RDW 14.8 % (12.1-15.1) 07/27/24 03:16 Plt Count 185 10^3/cmm (157-399) 07/27/24 03:16 MPV 9.5 fL (7.4-10.4) 07/27/24 03:16 Neut % (Auto) 56.6 % 07/27/24 03:16 Lymph % (Auto) 32.7 % 07/27/24 03:16 [place] % (Auto) 8.1 % 07/27/24 03:16 Eos % (Auto) 2.1 % 07/27/24 03:16 Baso % (Auto) 0.4 % 07/27/24 03:16 Neut # (Auto) 5.62 10^3/uL (1.8-7.7) 07/27/24 03:16 Lymph # (Auto) 3.2 10^3/uL (0.8-4.8) 07/27/24 03:16 [place] # (Auto) 0.8 10^3/uL (0.2-0.9) 07/27/24 03:16 Eos # (Auto) 0.2 10^3/uL (0.0-0.8) 07/27/24 03:16 Baso # (Auto) 0.0 10^3/uL (0.0-0.1) 07/27/24 03:16 Nucleated RBC % (auto) 0 % 07/27/24 03:16 Nucleated RBCs # 0.0 /100WBC 07/27/24 03:16 Sodium 140 mmol/L (136-145) 07/27/24 03:16 Potassium 4.1 mmol/L (3.5-5.1) 07/27/24 03:16 Chloride 104 mmol/L (98-107) 07/27/24 03:16 Carbon Dioxide 27 mmol/L (22-29) 07/27/24 03:16 Anion Gap 13.1 (5-19) 07/27/24 03:16 BUN 13 mg/dL (8-23) 07/27/24 03:16 Creatinine 1.0 mg/dL (0.7-1.2) 07/27/24 03:16 GFR Calculation Not Reportable 07/27/24 03:16 Glucose 96 mg/dL (65-115) 07/27/24 03:16 Calculated Osmolality 290 mOsm/kg (285-295) 07/27/24 03:16 Calcium 10.0 mg/dL (8.5-10.5) 07/27/24 03:16 Total Bilirubin 1.3 mg/dL (0.15-1.2) H 07/27/24 03:16 AST 19 U/L (0-40) 07/27/24 03:16 ALT 20 U/L (0-41) 07/27/24 03:16 Alkaline Phosphatase 151 U/L (40-130) H 07/27/24 03:16 C-Reactive Protein 19.6 mg/L (0.0-4.9) H 07/27/24 03:16 Total Protein 7.1 g/dL (6.6-8.7) 07/27/24 03:16 Albumin 4.2 g/dL (3.5-5.2) 07/27/24 03:16 Globulin 2.9 g/dL (1.3-4.6) 07/27/24 03:16 Urine Color Yellow (Yellow) 07/27/24 03:16 Urine Appearance Clear (CLEAR) 07/27/24 03:16 Urine pH 5.5 (5-7) 07/27/24 03:16 Ur Specific [place] 1.020 (1.005-1.030) 07/27/24 03:16 Urine Protein Negative (Negative) 07/27/24 03:16 Urine Glucose (UA) Negative (Normal) 07/27/24 03:16 Urine Ketones Negative (Negative) 07/27/24 03:16 Urine Blood Negative (Negative) 07/27/24 03:16 Urine Nitrate Negative (Negative) 07/27/24 03:16 Urine Bilirubin Negative (Negative) 07/27/24 03:16 Urine Urobilinogen 0.2 mg/dL (Negative) 07/27/24 03:16 Ur Leukocyte Esterase Negative (Negative) 07/27/24 03:16 Urine RBC 0-2 /hpf (0-2) 07/27/24 03:16 Urine WBC 0-5 /hpf (0-5) 07/27/24 03:16 Ur Squamous Epith Cells 0-5 /hpf (0-5) 07/27/24 03:16 Amorphous Sediment Not Reportable 07/27/24 03:16 Urine Bacteria None seen /hpf (NONE) 07/27/24 03:16 Hyaline Casts 0.40 /lpf 07/27/24 03:16 Discharge Plan Discharge Patient Disposition: Home Clinical Impression: Ureterolithiasis Condition: Stable Prescriptions: New hydrocodone-acetaminophen 5-325 mg tablet 1 tab PO Q6H PRN (Reason: pain) Qty: 20 0RF Changed tamsulosin 0.4 mg capsule 0.8 mg PO BEDTIME Qty: 60 0RF No Action cholecalciferol (vitamin D3) 25 mcg (1,000 unit) capsule 25 mcg PO QAM aspirin [Adult Aspirin Regimen] 81 mg tablet,delayed release (DR/EC) 81 mg PO QAM Hold Instructions: Resume on 02/20/22. nitroglycerin 0.4 mg tablet, sublingual 0.4 mg sublingual Q5M PRN (Reason: chest pain) Qty: 25 3RF Rx Instructions: do not exceed 3 doses per episode Plavix 75 mg tablet 75 mg PO QAM Qty: 90 3RF simvastatin 80 mg tablet See Rx Instructions .ROUTE .COMPLEX Qty: 90 3RF Dose Instruction: TAKE 1 TABLET EVERY EVENING Rx Instructions: TAKE 1 TABLET EVERY EVENING metoprolol tartrate 25 mg tablet See Rx Instructions .ROUTE .COMPLEX Qty: 90 3RF Dose Instruction: TAKE 1/2 TABLET TWICE DAILY Rx Instructions: TAKE 1/2 TABLET TWICE DAILY isosorbide mononitrate 30 mg tablet extended release 24 hr 30 mg PO QAM Qty: 90 3RF multivitamin Tablet 1 tab PO QAM levothyroxine 100 mcg tablet 100 mcg PO QAM Discharge Orders: Discharge ED (Routine); Ordered 07/27/24 Ordered By: Yfn Tenorio Referrals: Phil Baker MD [Primary Care Provider] - Patient Instructions: Kidney Stones (ED), How to Strain Your Urine (ED), Opioid Safety, Pain Management Activity Restrictions/Additional Instructions: Thank you for choosing [facility] for your healthcare needs today. It is very important that you follow up as instructed or that you return to the Emergency Department should you have concerns or if your condition changes or worsens in any way. You were seen in the emergency room for continued right flank pain. CT shows thickening of the bladder wall and what appears to be a 3 mm stone in the right distal ureter with some swelling of the kidney. Case management make arrangements for you to follow-up with urologist. Sign Out Sign Out Data: Patient Sign Out occurred on 07/27/24 at 07:03. Patient's care was discussed, and care was transferred from Willi Allen DO to Yfn Tenorio DO. Coding Level of Care Code ED Wood Buffer for Wilian Velazquez
[2024-07-27 03:42] LABS: Basophils % 0.4 %; Eosinophils # 0.2 10^3/uL (0.0-0.8); Eosinophils % 2.1 %; Hematocrit 41.4 % (37-53); Lymphocytes # 3.2 10^3/uL (0.8-4.8); Lymphocytes % 32.7 %; Mean Corpuscular HGB Conc 32.4 g/dL (30-55); Mean Corpuscular Hemoglobin 29.6 pg (27-33); Mean Corpuscular Volume 91.4 fl (82-101); Mean Platelet Volume 9.5 fL (7.4-10.4); Monocytes # 0.8 10^3/uL (0.2-0.9); Monocytes % 8.1 %; Neutrophils # 5.62 10^3/uL (1.8-7.7); Neutrophils % 56.6 %; Nucleated Red Blood Cells % 0 %; Platelet Count 185 10^3/cmm (157-399); Red Blood Count 4.53 10^6/uL (3.85-5.65); Red Cell Distribution Width 14.8 % (12.1-15.1); White Blood Count 9.92 10^3/uL (3.29-11.43)
[2024-07-27] MEDS: ondansetron 2 mg/ML SDV 2 mL 4 MG IVP (03:44)
[2024-07-27] MEDS: ketorolac 30 mg/mL INJ IVP (03:44)
[2024-07-27 03:46] LABS: Bilirubin Urine Negative (Negative); Blood Urine Negative (Negative); Glucose Urine UA Negative (Normal); Ketones Urine Negative (Negative); Leukocyte Esterase Urine Negative (Negative); Nitrate Urine Negative (Negative); Protein Urine Negative (Negative); Urine Appearance Clear (CLEAR); Urine Color Yellow (Yellow); Urobilinogen Urine 0.2 mg/dL (Negative); pH Urine 5.5 (5-7)
[2024-07-27 03:51] LABS: Add Urine Microscopic? YES; Bacteria Urine None Seen /hpf; RBC Urine 0-2 /hpf (0-2); Squamous Epithelial Cell Urine 0-5 /hpf (0-5); WBC Urine 0-5 /hpf (0-5)
[2024-07-27 03:57] LABS: Alanine Aminotransferase 20 U/L (0-41); Albumin Level 4.2 g/dL (3.5-5.2); Alkaline Phosphatase 151 U/L (40-130); Anion Gap 13.1 (5-19); Aspartate Amino Transferase 19 U/L (0-40); Blood Urea Nitrogen 13 mg/dL (8-23); C Reactive Protein 19.6 mg/L (0.0-4.9); Carbon Dioxide 27 mmol/L (22-29); Chloride 104 mmol/L (98-107); Creatinine Clr Calc Pharmacy 73.5507; Globulin 2.9 g/dL (1.3-4.6); Glucose 96 mg/dL (65-115); Osmolality Calculated 290 mOsm/kg (285-295); Potassium 4.1 mmol/L (3.5-5.1); Sodium 140 mmol/L (136-145); Total Bilirubin 1.3 mg/dL (0.15-1.2); Total Protein 7.1 g/dL (6.6-8.7)
[2024-07-27] MEDS: iohexol 350 mg/mL 500 mL Btl (per mL) IV (03:57)
--- NOTE | 2024-07-27 10:08 | DCPLANNER ---
Referral for urology sent to [facility] urology- [facility]
== END 2024-07-27 07:39 | disposition home or self-care (01) ==
PROVIDERS: Emergency Medicine; Emergency Provider Family Medicine; PCP Family Medicine
DX: N20.1 Calculus of ureter (principal); Z79.82 Long term (current) use of aspirin; Z87.891 Personal history of nicotine dependence; I25.10 Atherosclerotic heart disease of native coronary artery without angina pectoris; E78.5 Hyperlipidemia, unspecified
CPT/HCPCS: 36415; 74177; 80053; 81001; 85025; 86140; 96374; 96375; 99285; J1885; J2405

== ENCOUNTER 2024-08-16 15:55 | Emergency (ER) | payer MEDICARE, SELFPAY ==
[2024-08-16] VITALS (7 sets, daily range): BP systolic 105–155; BP diastolic 60–81; PULSE 95–118; RESP 24; TEMP 37.6–38.4; O2SAT 91–96; BMI 22.4
--- NOTE | 2024-08-16 16:57 | XRR_ITS ---
PROCEDURE INFORMATION: Exam: XR Chest Exam date and time: 08/16/2024 5:01 PM Age: 74 years old Clinical indication: Cough and fever; Additional info: Fever, cough TECHNIQUE: Imaging protocol: Radiologic exam of the chest. Views: 1 view. COMPARISON: CT lung screening [id number] 03/14/2024 8:08 AM FINDINGS: Tubes, catheters and devices: Right chest port terminates at the cavoatrial junction. Lungs: Calcified granuloma noted in the right lung base. No consolidation. Pleural spaces: Unremarkable. No pleural effusion. No pneumothorax. Heart/Mediastinum: Unremarkable. No cardiomegaly. Bones/joints: Unremarkable. XR/XR chest 1V portable [id number] IMPRESSION: No acute findings.
--- NOTE | 2024-08-16 17:03 | ED_ITS ---
HPI - URI/Sore Throat 2 General: Chief Complaint: Upper Respiratory Infection Stated Complaint: fever 102, cough, Time Seen by Provider: 08/16/24 16:57 Source: patient and family Mode of arrival: ambulatory Limitations: no limitations History of Present Illness: Patient is a 74-year-old male with a history of atherosclerotic heart disease, dyslipidemia, hypertension, hypothyroidism, known lung cancer (recently began chemotherapy through oncology in [place]) here for complaints of fevers, body aches, and a cough. He reportedly told his oncologist about his cough who placed him on Augmentin. He does not seem to be improving. Fevers as high as 102 today. He is complaining of diffuse body aches. No known sick contacts. He is not having any vomiting. He has had a small amount of diarrhea. No appetite. No abdominal pain. States he is supposed to be receiving chemotherapy every 3 weeks. MD elicited complaint: fever, cough and other (body aches ) Onset (ago): day(s) Consistency: constant Severity: moderate Description of mucous: clear Able to tolerate fluids by mouth: Yes Exacerbating factors: nothing Relieving factors: nothing Context: recent chemotherapy Associated symptoms: Reports chills, diarrhea and fever(s); Deny abdominal pain, chest pain, headache(s), nausea or vomiting Related Data Home Medications Medication Instructions Recorded Confirmed aspirin 81 mg tablet,delayed 81 mg PO QAM 09/28/19 03/22/24 release (Adult Aspirin Regimen) cholecalciferol (vitamin D3) 25 25 mcg PO QAM 07/22/21 03/22/24 mcg (1,000 unit) capsule levothyroxine 100 mcg tablet 100 mcg PO QAM 03/05/23 03/22/24 multivitamin 1 tab PO QAM 03/05/23 03/22/24 Previous Rx's Medication Instructions Recorded clopidogrel 75 mg tablet (Plavix) 75 mg PO QAM #90 tabs 07/03/23 simvastatin 80 mg tablet See Rx Instructions .Route 09/09/23 .COMPLEX #90 tabs metoprolol tartrate 25 mg tablet See Rx Instructions .Route 04/01/24 .COMPLEX #90 tabs nitroglycerin 0.4 mg sublingual 0.4 mg sublingual Q5M PRN chest 07/18/24 tablet pain #25 tabs hydrocodone 5 mg-acetaminophen 325 1 tab PO Q6H PRN pain #20 tabs 07/27/24 mg tablet tamsulosin 0.4 mg capsule 0.8 mg (2 x 0.4 mg) PO BEDTIME #60 07/27/24 caps isosorbide mononitrate 30 mg 30 mg PO QAM #90 tabs 07/29/24 tablet,extended release 24 hr levofloxacin 500 mg tablet 500 mg PO DAILY 7 days #7 tabs 08/16/24 Allergies Allergy/AdvReac Type Severity Reaction Status Date / Time oxycodone Allergy Unknown head Verified 08/16/24 16:13 spinning hydrocodone Allergy ADR-Irritab Verified 08/16/24 16:13 le tramadol Allergy head Verified 08/16/24 16:13 spinning Review of Systems 2 Const: Reports: fever(s), chills, body aches and change in appetite; Denies: fatigue or malaise Card: Denies: chest pain Resp: Reports: productive cough and chest congestion; Denies: dyspnea, wheezing or hemoptysis GI: Reports: diarrhea; Denies: abdominal pain, nausea or vomiting : Denies: flank pain, difficulty urinating, dysuria, urinary frequency, urinary urgency or urinary hesitancy Musc: Reports: other (reports diffuse body aches); Denies: neck pain, back pain, extremity pain, extremity swelling, joint pain or joint swelling Skin/Breast: Denies: rash Neuro: Denies: headache(s), numbness in extremities, weakness in extremities, sensory changes or dizziness PFSH ED 2 PFSH: Medical History 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 Pain management contract signed Stable angina Cervical spondylosis Erectile dysfunction Non-ST elevation IN (NSTEMI) CAD (coronary artery disease) 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 Surgical History History of cardiac cath CAD s/p stent to LAD and RCA in 2019 Hx of left inguinal hernia repair Family History Mother Dementia Hypertension CAD (coronary artery disease) Denies family history of Diabetes Clotting disorder Hyperlipidemia Psychiatric illness Chronic kidney disease (CKD) Suicide Anesthesia complication Bleeding disorder Family history of premature coronary artery disease Lung disease Cancer Stroke Social History (Reviewed 08/16/24 @ 17:39 by SID Pickett Smoking and tobacco/nicotine status: former use of tobacco/nicotine Quit status (tobacco/nicotine): has quit using Year quit tobacco: 2019 Former quit date comment: 1 ppd X 50 years Alcohol intake: never Substance/Drug Use: never Marital status: Physical Exam 2 Const: COMMON NORMALS: no acute distress, patient oriented x3, no limitations, alert and well nourished GENERAL APPEARANCE: cooperative OTHER: febrile at 101.1 HENMT: COMMON NORMALS: normocephalic and atraumatic HEAD & SCALP: n ormocephalic and atraumatic THROAT: posterior oropharynx normal Eye: GENERAL EYE: appearance normal, both eyes and all related structures Neck/C-Spine: COMMON NORMALS: full ROM, no lymphadenopathy, supple and no meningeal signs Chest: COMMONS NORMALS: normal inspection of the chest Resp: COMMON NORMALS: normal respiratory effort and clear to auscultation bilaterally AUSCULTATION: clear to auscultation bilaterally Cardio: COMMON NORMALS: regular rhythm RATE: tachycardic RHYTHM: regular rhythm GI: COMMON NORMALS: Normal to inspection, nondistended, normoactive bowel sounds present, Soft to palpation, non-tender, No hepatosplenomegaly present and no masses PALPATION: Yes Soft to palpation and Yes No hepatosplenomegaly present : COMMON NORMALS: Yes no CVA tenderness BLADDER/KIDNEY EXAM: Yes no CVA tenderness Back/Pelvis: COMMON NORMALS: no CVA tenderness and thoracic and lumbar spine normal to inspection Extremity: COMMON NORMALS: normal to inspection GENERAL: Yes normal exam except as noted Neuro: [place] COMA SCALE: document GCS findings [place] coma scale eye opening: Spontaneous [place] coma scale verbal response: Orientated [place] coma scale motor response: Obey commands [place] coma scale total score: 15 COMMON NORMALS: patient oriented x3, moves all extremities, no focal motor deficits and no sensory deficits noted SENSORIUM/ORIENTATION: Yes alert MENINGEAL SIGNS: Yes no meningeal signs Skin: COMMON NORMALS: no rashes or lesions noted GENERAL SKIN EXAM: no rashes or lesions noted Course 2 Vital Signs: Vital signs: Vital Signs Temperature 99.6 F 08/16/24 18:22 Pulse Rate 95 08/16/24 20:12 Respiratory Rate 24 H 08/16/24 18:22 Blood Pressure 109/65 08/16/24 20:12 Pulse Oximetry 96 08/16/24 20:12 Oxygen Delivery Me thod Room Air 08/16/24 19:30 MDM - URI/Sore Throat Medical Decision Making Patient is a nice 74-year-old male actively on chemotherapy here for complaints of fevers, body ache, and a cough. He arrived febrile at 101.1. This has subsided after administration of Tylenol and Ibuprofen. His blood work showing a normal white count. He has mildly low platelets and absolute neutrophil counts expected given his active chemotherapy status. CMP and UA are unremarkable. His chest x-ray showing no acute findings. Suspected flu or COVID however his respiratory panel came back completely negative. Will obtain blood cultures. Spoke to Dr. Allen regarding case and reviewed ED workup. He is recommending switching patient from his Augmentin to Levofloxacin. I recommend he reach out to his oncology team and/or primary care this week for re- evaluation. Return to ED precautions given. Medical Records I reviewed the patient's medical records. Lab Data I reviewed the patient's lab results. 08/16/24 10:15 08/16/24 10:15 Radiology Impressions Chest X-Ray 08/16/24 16:57 IMPRESSION: No acute findings. Laboratory Results WBC 3.02 10^3/uL (3.29-11.43) L 08/16/24 10:15 RBC 4.11 10^6/uL (3.85-5.65) 08/16/24 10:15 Hgb 11.80 g/dL (11.27-16.99) 08/16/24 10:15 Hct 36.2 % (37-53) L 08/16/24 10:15 MCV 88.1 fl (82-101) 08/16/24 10:15 MCH 28.7 pg (27-33) 08/16/24 10:15 MCHC 32.6 g/dL (30-55) 08/16/24 10:15 RDW 14.5 % (12.1-15.1) 08/16/24 10:15 Plt Count 137 10^3/cmm (157-399) L 08/16/24 10:15 MPV 9.7 fL (7.4-10.4) 08/16/24 10:15 Lymph % (Auto) Not Reportable 08/16/24 10:15 [place] % (Auto) Not Reportable 08/16/24 10:15 Lymph # (Auto) Not Reportable 08/16/24 10:15 [place] # (Auto) Not Reportable 08/16/24 10:15 Total Counted 100 (0-100) 08/16/24 10:15 Atypical Lymphs % 1.0 % (0-5) 08/16/24 10:15 Absolute Neutrophils 1.1 10^3/cmm (1.4-6.5) L 08/16/24 10:15 Segmented Neutrophils 18 % 08/16/24 10:15 Band Neutrophils 20.0 % 08/16/24 10:15 Absolute Lymphocytes 1.3 10^3/cmm (1.2-3.4) 08/16/24 10:15 Lymphocytes (Manual) 42 % 08/16/24 10:15 Monocytes (Manual) 15.0 % 08/16/24 10:15 Absolute Monocytes 0.5 10^3/cmm (0.1-0.6) 08/16/24 10:15 Eosinophils (Manual) 1 % 08/16/24 10:15 Absolute Eosinophils 0.0 10^3/cmm (0.0-0.7) 08/16/24 10:15 Basophils (Manual) 0.0 % 08/16/24 10:15 Absolute Basophils 0.0 10^3/cmm (0.0-0.2) 08/16/24 10:15 Metamyelocytes 3.0 % 08/16/24 10:15 Platelet Estimate Normal (Normal) 08/16/24 10:15 Giant Platelets Trace 08/16/24 10:15 Sodium 136 mmol/L (136-145) 08/16/24 10:15 Potassium 3.6 mmol/L (3.5-5.1) 08/16/24 10:15 Chloride 100 mmol/L (98-107) 08/16/24 10:15 Carbon Dioxide 24 mmol/L (22-29) 08/16/24 10:15 Anion Gap 15.6 (5-19) 08/16/24 10:15 BUN 20 mg/dL (8-23) 08/16/24 10:15 Creatinine 1.0 mg/dL (0.7-1.2) 08/16/24 10:15 GFR Calculation Not Reportable 08/16/24 10:15 Glucose 102 mg/dL (65-115) 08/16/24 10:15 Calculated Osmolality 285 mOsm/kg (285-295) 08/16/24 10:15 Lactic Acid 1.0 mmol/L (0.5-2.2) 08/16/24 10:15 Calcium 9.8 mg/dL (8.5-10.5) 08/16/24 10:15 Total Bilirubin 1.0 mg/dL (0.15-1.2) 08/16/24 10:15 AST 14 U/L (0-40) 08/16/24 10:15 ALT 18 U/L (0-41) 08/16/24 10:15 Alkaline Phosphatase 110 U/L (40-130) 08/16/24 10:15 Total Protein 7.0 g/dL (6.6-8.7) 08/16/24 10:15 Albumin 3.7 g/dL (3.5-5.2) 08/16/24 10:15 Globulin 3.3 g/dL (1.3-4.6) 08/16/24 10:15 Urine Color Dark yellow (Yellow) A 08/16/24 19:30 Urine Appearance Clear (CLEAR) 08/16/24 19:30 Urine pH 6.0 (5-7) 08/16/24 19:30 Ur Specific [place] 1.025 (1.005-1.030) 08/16/24 19:30 Urine Protein 2+ (Negative) A 08/16/24 19: Urine Glucose (UA) Negative (Normal) 08/16/24 19:30 Urine Ketones 2+ (Negative) H 08/16/24 19:30 Urine Blood Negative (Negative) 08/16/24 19:30 Urine Nitrate Negative (Negative) 08/16/24 19:30 Urine Bilirubin Negative (Negative) 08/16/24 19: Urine Urobilinogen 1.0 mg/dL (Negative) 08/16/24 19:30 Ur Leukocyte Esterase Negative (Negative) 08/16/24 19:30 Urine RBC 3-5 /hpf (0-2) 08/16/24 19:30 Urine WBC 0-5 /hpf (0-5) 08/16/24 19:30 Ur Squamous Epith Cells 0-5 /hpf (0-5) 08/16/24 19:30 Amorphous Sediment Not Reportable 08/16/24 19:30 Urine Bacteria None seen /hpf (NONE) 08/16/24 19:30 Hyaline Casts 5.36 /lpf 08/16/24 19:30 Adenovirus (PCR) Not detected (NOT DETECT) 08/16/24 17:21 C. pneumoniae DNA (PCR) Not detected (NOT DETECT) 08/16/24 17:21 Coronavirus (PCR) Cancelled 08/16/24 17:21 Coronavirus 229E (PCR) Not detected (NOT DETECT) 08/16/24 17:21 Human Metapneumovir PCR Not detected (NOT DETECT) 08/16/24 17:21 Influenza A (H1) PCR Not detected (NOT DETECT) 08/16/24 17:21 Influenza A (PCR) Cancelled 08/16/24 17:21 Influ A (H1/09) PCR Not detected (NOT DETECT) 08/16/24 17:21 Influenza A (H3) PCR Not detected (NOT DETECT) 08/16/24 17:21 Influenza Type A (PCR) Not detected (NOT DETECT) 08/16/24 17:21 Influenza Type B (PCR) Cancelled 08/16/24 17:21 Influenza Type B (PCR) Not detected (NOT DETECT) 08/16/24 17:21 M. pneumoniae (PCR) Not detected (NOT DETECT) 08/16/24 17:21 Parainfluenza 1 (PCR) Not detected (NOT DETECT) 08/16/24 17:21 Parainfluenza 2 (PCR) Not detected (NOT DETECT) 08/16/24 17:21 Parainfluenza 3 (PCR) Not detected (NOT DETECT) 08/16/24 17:21 Parainfluenza 4 (PCR) Not detected (NOT DETECT) 08/16/24 17:21 RSV (PCR) Cancelled 08/16/24 17:21 RSV Type A (PCR) Not detected (NOT DETECT) 08/16/24 17:21 RSV Type B (PCR) Not detected (NOT DETECT) 08/16/24 17:21 Entero/Rhino (PCR) Not detected (NOT DETECT) 08/16/24 17:21 SARS-CoV-2 (PCR) Not detected (NOT DETECT) 08/16/24 17:21 All radiology interpretation(s) finalized by discharge Discharge Plan Discharge Patient Disposition: Home Clinical Impression: Fever, Cough Condition: Stable Prescriptions: New levofloxacin 500 mg tablet 500 mg PO DAILY 7 Days Qty: 7 0RF No Action cholecalciferol (vitamin D3) 25 mcg (1,000 unit) capsule 25 mcg PO QAM aspirin [Adult Aspirin Regimen] 81 mg tablet,delayed release (DR/EC) 81 mg PO QAM Hold Instructions: Resume on 02/20/22. nitroglycerin 0.4 mg tablet, sublingual 0.4 mg sublingual Q5M PRN (Reason: chest pain) Qty: 25 3RF Rx Instructions: do not exceed 3 doses per episode Plavix 75 mg tablet 75 mg PO QAM Qty: 90 3RF simvastatin 80 mg tablet See Rx Instructions .ROUTE .COMPLEX Qty: 90 3RF Dose Instruction: TAKE 1 TABLET EVERY EVENING Rx Instructions: TAKE 1 TABLET EVERY EVENING metoprolol tartrate 25 mg tablet See Rx Instructions .ROUTE .COMPLEX Qty: 90 3RF Dose Instruction: TAKE 1/2 TABLET TWICE DAILY Rx Instructions: TAKE 1/2 TABLET TWICE DAILY isosorbide mononitrate 30 mg tablet extended release 24 hr 30 mg PO QAM Qty: 90 3RF multivitamin Tablet 1 tab PO QAM levothyroxine 100 mcg tablet 100 mcg PO QAM hydrocodone-acetaminophen 5-325 mg tablet 1 tab PO Q6H PRN (Reason: pain) Qty: 20 0RF tamsulosin 0.4 mg capsule 0.8 mg PO BEDTIME Qty: 60 0RF Discharge Orders: Discharge ED (Routine); Ordered 08/16/24 Ordered By: Dione Schuler Referrals: Phil Baker MD [Primary Care Provider] - Activity Restrictions/Additional Instructions: As we discussed, I would like you to reach out to your oncology team and/or your primary care provider later this week for re-evaluation and follow-up. As we discussed, your chest x-ray here was unremarkable. Respiratory panel was negative. I will have you discontinue your current Augmentin and we will place you on Levaquin. You may continue Tylenol and/or Ibuprofen as needed for fevers and body aches. You need to return to the emergency department for worsening fever, generally feeling worse or unwell, worsening cough, significant shortness of breath or difficulty breathing, or any other concerns you may have. I hope you begin to feel better soon. Coding Level of Care Code ED Water Quality Specialist for Wilian Velazquez
[2024-08-16] MEDS: acetaminophen 500 mg Tablet 1000 MG PO (17:14)
[2024-08-16] MEDS: ibuprofen 600 mg Tablet PO (17:14)
[2024-08-16] MEDS: sodium chloride 0.9% 1,000 ML 999 ML IV (17:16)
[2024-08-16 17:36] LABS: Hematocrit 36.2 % (37-53); Mean Corpuscular HGB Conc 32.6 g/dL (30-55); Mean Corpuscular Hemoglobin 28.7 pg (27-33); Mean Corpuscular Volume 88.1 fl (82-101); Mean Platelet Volume 9.7 fL (7.4-10.4); Platelet Count 137 10^3/cmm (157-399); Red Blood Count 4.11 10^6/uL (3.85-5.65); Red Cell Distribution Width 14.5 % (12.1-15.1); White Blood Count 3.02 10^3/uL (3.29-11.43)
[2024-08-16 17:44] LABS: Alanine Aminotransferase 18 U/L (0-41); Albumin Level 3.7 g/dL (3.5-5.2); Alkaline Phosphatase 110 U/L (40-130); Anion Gap 15.6 (5-19); Aspartate Amino Transferase 14 U/L (0-40); Blood Urea Nitrogen 20 mg/dL (8-23); Calcium 9.8 mg/dL (8.5-10.5); Carbon Dioxide 24 mmol/L (22-29); Chloride 100 mmol/L (98-107); Creatinine Clr Calc Pharmacy 73.3133; Globulin 3.3 g/dL (1.3-4.6); Glucose 102 mg/dL (65-115); Osmolality Calculated 285 mOsm/kg (285-295); Potassium 3.6 mmol/L (3.5-5.1); Sodium 136 mmol/L (136-145)
[2024-08-16 18:13] LABS: Absolute Segmented Neutrophil 0.5 10/cmm (1.6-7.1); Band Neutrophils Absolute 0.6 10^3/cmm (0.0-1.2); Eosinophils 1 %; Lymphocytes 42 %; Lymphocytes Absolute 1.3 10^3/cmm (1.2-3.4); Monocytes Absolute 0.5 10^3/cmm (0.1-0.6); Segmented Neutrophils 18 %; Slide Review Slide Review Perform; Total Cells Counted 100 (0-100)
[2024-08-16 18:14] LABS: Absolute Neutrophil 1.1 10^3/cmm (1.4-6.5); Giant Platelets Trace; Platelet Estimate Normal (Normal)
[2024-08-16 19:20] LABS: Adenovirus Not Detected (NOT DETECT); Chlamydia Pneumoniae Not Detected (NOT DETECT); Coronavirus 229E,HKU1,NL63,OC4 Not Detected (NOT DETECT); Human Metapneumovirus Not Detected (NOT DETECT); Human Rhinovirus/Enterovirus Not Detected (NOT DETECT); Influenza A Not Detected (NOT DETECT); Influenza A H1 Not Detected (NOT DETECT); Influenza A H1-2009 Not Detected (NOT DETECT); Influenza A H3 Not Detected (NOT DETECT); Influenza B Not Detected (NOT DETECT); Mycoplasma Pneumoniae Not Detected (NOT DETECT); Parainfluenza Virus Type 1 Not Detected (NOT DETECT); Parainfluenza Virus Type 2 Not Detected (NOT DETECT); Parainfluenza Virus Type 3 Not Detected (NOT DETECT); Parainfluenza Virus Type 4 Not Detected (NOT DETECT); Respiratory Syncytial Virus A Not Detected (NOT DETECT); Respiratory Syncytial Virus B Not Detected (NOT DETECT); SARS-COV-2 Not Detected (NOT DETECT)
[2024-08-16 19:55] LABS: Bilirubin Urine Negative (Negative); Blood Urine Negative (Negative); Glucose Urine UA Negative (Normal); Ketones Urine 2+ (Negative); Leukocyte Esterase Urine Negative (Negative); Nitrate Urine Negative (Negative); Protein Urine 2+ (Negative); Specific Gravity, Urine 1.025 (1.005-1.030); Urine Appearance Clear (CLEAR); Urine Color Dark Yellow (Yellow)
[2024-08-16 20:00] LABS: Add Urine Microscopic? YES; Bacteria Urine None Seen /hpf; Hyaline Casts Urine 5.36 /lpf; Squamous Epithelial Cell Urine 0-5 /hpf (0-5); WBC Urine 0-5 /hpf (0-5)
[2024-08-16] MEDS: levoFLOXacin 500 mg Tablet PO (20:08)
== END 2024-08-16 20:25 | disposition home or self-care (01) ==
PROVIDERS: Emergency Provider Physician Assistant; PCP Family Medicine
DX: R50.9 Fever, unspecified (principal); C05.9 Malignant neoplasm of palate, unspecified; Z11.52 Encounter for screening for COVID-19; Z87.891 Personal history of nicotine dependence; I25.10 Atherosclerotic heart disease of native coronary artery without angina pectoris; E78.5 Hyperlipidemia, unspecified; I10 Essential (primary) hypertension
CPT/HCPCS: 71045; 80053; 81001; 83605; 85007; 85025; 87040; 87486; 87581; 87633; 96360; 99284; J7030

== ENCOUNTER 2024-08-23 08:38 | Outpatient (CLI) | payer MEDICARE, SELFPAY ==
--- NOTE | 2024-08-23 08:40 | CTR_ITS ---
PROCEDURE INFORMATION: Exam: CT Chest With Contrast; Diagnostic Exam date and time: 08/23/2024 9:39 AM Age: 74 years old Clinical indication: Condition or disease; Other: Squamous cell carcinoma lung; Prior surgery; Surgery date: 6+ months; Surgery type: Port, hernia TECHNIQUE: Imaging protocol: Diagnostic computed tomography of the chest with contrast. Radiation optimization: All CT scans at this facility use at least one of these dose optimization techniques: automated exposure control; mA and/or kV adjustment per patient size (includes targeted exams where dose is matched to clinical indication); or iterative reconstruction. Contrast material: OMNI 350; Contrast volume: 100 ml; Contrast route: INTRAVENOUS (IV); COMPARISON: PT PET skull to thigh INIT [id number] 04/05/2024 9:30 AM RADIATION DOSE METRICS: Total DLP (mGy-cm): 652.12 FINDINGS: Lungs: There are postoperative changes status post right upper lobectomy. There is linear scarring at the right lung base. There is a reticulonodular/tree-in-bud type opacity involving the left lower lobe. Findings are likely inflammatory in origin. Given the nodular character of this opacity, follow-up after treatment would be recommended to document resolution and exclude the presence of underlying pulmonary nodules. Pleural spaces: Unremarkable. No pneumothorax. No pleural effusion. Heart: Unremarkable. No cardiomegaly. No pericardial effusion. Lymph nodes: There are multiple calcified and noncalcified mediastinal lymph nodes. The largest node is seen within the AP window measuring 19 mm (previously 19 mm). There also a few relatively small hilar lymph nodes. Vasculature: The thoracic aorta is normal in caliber without aneurysm or dissection. There is calcified plaque involving the aorta and coronary vessels. Bones/joints: Unremarkable. No acute fracture. Soft tissues: Unremarkable. PROCEDURE INFORMATION: Exam: CT Abdomen And Pelvis With Contrast Exam date and time: 08/23/2024 9:39 AM Age: 74 years old Clinical indication: Condition or disease; Other: Squamous cell carcinoma lung; Prior surgery; Surgery date: 6+ months; Surgery type: Port, hernia TECHNIQUE: Imaging protocol: Computed tomography of the abdomen and pelvis with contrast. Radiation optimization: All CT scans at this facility use at least one of these dose optimization techniques: automated exposure control; mA and/or kV adjustment per patient size (includes targeted exams where dose is matched to clinical indication); or iterative reconstruction. Contrast material: OMNI 350; Contrast volume: 100 ml; Contrast route: INTRAVENOUS (IV); COMPARISON: CT abdomen pelvis w con* [id number] 07/27/2024 3:46 AM RADIATION DOSE METRICS: Total DLP (mGy-cm): 652.12 FINDINGS: Liver: There is mild fatty infiltration of the liver. There are low-density lesions within the liver compatible with cysts. Gallbladder and biliary ducts: There are gallstones within the gallbladder. No pericholecystic inflammatory change is noted. Pancreas: Normal. No ductal dilation. Spleen: Normal. No splenomegaly. Adrenal glands: Normal. No mass. Kidneys and ureters: Normal. No hydronephrosis. Stomach and bowel: There is abnormal appearing soft tissue within the cardia of the stomach adjacent to the GE junction. A soft tissue mass cannot be excluded. This abnormal soft tissue measures 3.8 x 2.4 cm in size. There are scattered colonic diverticula. No bowel wall thickening is noted. No dilated loops of large or small bowel is appreciated. Appendix: The appendix is not definitely identified. Intraperitoneal space: Unremarkable. No free air. No significant fluid collection. Vasculature: The aorta is normal in caliber. There is calcified plaque involving the aorta and its branch vessels. Lymph nodes: Unremarkable. No enlarged lymph nodes. Urinary bladder: Unremarkable as visualized. Reproductive: Unremarkable as visualized. Bones/joints: Unremarkable. No acute fracture. Soft tissues: No acute soft tissue abnormalities are appreciated. CT/CT chest abdpel w/*[id number] IMPRESSION: 1. Reticulonodular/tree-in-bud type opacity involving the left lower lobe likely inflammatory. Recommend follow-up to document complete clearing with appropriate therapy to exclude underlying lung nodules. IMPRESSION: 1. Nodular appearing soft tissue involving the cardia of the stomach suspicious for a mass. Recommend further evaluation with endoscopy. This has not been present on prior exams. 2. Please see above comments for additional details.
[2024-08-23] MEDS: iohexol 350 mg/mL 500 mL Btl (per mL) IV (09:47)
[2024-08-23] MEDS: iohexol 350 mg/mL 500 mL Btl (per mL) PO (09:47)
== END 2024-08-23 08:39 | disposition home or self-care (01) ==
LOC: RAD 08:38
PROVIDERS: PCP Family Medicine; Visit Provider Internal Medicine Pulmonary Disease
DX: C34.91 Malignant neoplasm of unspecified part of right bronchus or lung (principal); Z90.2 Acquired absence of lung [part of]; R91.8 Other nonspecific abnormal finding of lung field; Z98.890 Other specified postprocedural states; J98.4 Other disorders of lung; I89.8 Other specified noninfective disorders of lymphatic vessels and lymph nodes; I70.0 Atherosclerosis of aorta; I25.10 Atherosclerotic heart disease of native coronary artery without angina pectoris; K76.0 Fatty (change of) liver, not elsewhere classified; K76.9 Liver disease, unspecified
CPT/HCPCS: 71260; 74177

== ENCOUNTER 2024-08-24 09:50 | Outpatient (CLI) | payer MEDICARE, SELFPAY | END 2024-08-24 09:51 | disposition home or self-care (01) | LOC: RT 09:51 | PROVIDERS: PCP Family Medicine; Visit Provider Internal Medicine Pulmonary Disease | DX: J44.9 Chronic obstructive pulmonary disease, unspecified (principal) | CPT/HCPCS: 94618 ==

== ENCOUNTER → 2024-10-18 10:29 | Outpatient (BNVA) | payer MEDICARE, SELFPAY | PROVIDERS: PCP Family Medicine; Visit Provider Nurse Practitioner Family | DX: I25.10 Atherosclerotic heart disease of native coronary artery without angina pectoris (principal); E78.5 Hyperlipidemia, unspecified; I34.0 Nonrheumatic mitral (valve) insufficiency; I10 Essential (primary) hypertension; Z87.891 Personal history of nicotine dependence | CPT/HCPCS: 99213 ==

== ENCOUNTER 2024-12-04 11:34 | Emergency (ER) | payer MEDICARE, SELFPAY ==
[2024-12-04 12:13] VITALS: BP 103/65; PULSE 76; TEMP 36.6; O2SAT 98; BMI 21.4
--- NOTE | 2024-12-04 13:13 | XRR_ITS ---
PROCEDURE INFORMATION: Exam: XR Chest Exam date and time: 12/04/2024 1:20 PM Age: 74 years old Clinical indication: Dyspnea; Prior surgery; Surgery date: 6+ months; Surgery type: Cardiac stents x 2, RT lung mass resection 2019; Additional info: Syncopal episode; Weakness; SOB; Lung CA TECHNIQUE: Imaging protocol: Radiologic exam of the chest. Views: 1 view. COMPARISON: CT chest abdpel w/*[id number] 08/23/2024 9:39 AM FINDINGS: Tubes, catheters and devices: There is a right IJ port with tip in the superior vena cava. Lungs: Unchanged severe hyperinflation/COPD. No consolidation. Pulmonary vascularity is within normal limits. Linear atelectasis versus scarring left lower lobe. Calcified granuloma mid to lower right lung. Pleural spaces: Unremarkable. No pleural effusion. No pneumothorax. Heart/Mediastinum: Unremarkable. No cardiomegaly. Bones/joints: No acute abnormality. XR/XR chest 1V portable [id number] IMPRESSION: No acute findings. Severe hyperinflation/COPD.
--- NOTE | 2024-12-04 13:14 | ECG_ITS ---
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 Measurements Intervals [place] Rate: 75 P: 66 MI: 169 QRS: 58 QRSD: 105 T: 16 QT: 374 QTc: 420 Interpretive Statements SINUS RHYTHM NONSPECIFIC T-WAVE ABNORMALITY INTERPRETATION BASED ON A DEFAULT AGE OF 40 YEARS Compared to ECG 05/12/2024 18:18:04 T-wave abnormality now present Electronically Signed On 12-05-2024 18:52:22 CDT by Berto Martins M.D. [id number] [id number]
--- NOTE | 2024-12-04 13:37 | PC.PHAR ---
Pt states he was taken off Plavix 75mg and put on Eliquis 5 mg twice daily 11/07/24.
[2024-12-04 13:40] LABS: Basophils % 0.5 %; Eosinophils # 0.2 10^3/uL (0.0-0.8); Eosinophils % 2.3 %; Hematocrit 36.7 % (37-53); Lymphocytes # 2.9 10^3/uL (0.8-4.8); Lymphocytes % 39.2 %; Mean Corpuscular HGB Conc 31.9 g/dL (30-55); Mean Corpuscular Volume 100.3 fl (82-101); Mean Platelet Volume 9.3 fL (7.4-10.4); Monocytes # 0.6 10^3/uL (0.2-0.9); Monocytes % 8.6 %; Neutrophils # 3.66 10^3/uL (1.8-7.7); Neutrophils % 49.3 %; Nucleated Red Blood Cells % 0 %; Platelet Count 201 10^3/cmm (157-399); Red Blood Count 3.66 10^6/uL (3.85-5.65); Red Cell Distribution Width 14.9 % (12.1-15.1); White Blood Count 7.43 10^3/uL (3.29-11.43)
[2024-12-04] MEDS: sodium chloride 0.9% 1,000 ML 999 ML IV (13:45)
[2024-12-04 13:53] VITALS: BP 113/74; BP 119/78; BP 123/77; PULSE 68; PULSE 72; PULSE 75
[2024-12-04 13:57] VITALS: BP 113/74; PULSE 68; RESP 16; O2SAT 97
[2024-12-04 14:06] LABS: Bilirubin Urine Negative (Negative); Blood Urine Negative (Negative); Glucose Urine UA Negative (Normal); Ketones Urine Negative (Negative); Leukocyte Esterase Urine Negative (Negative); Nitrate Urine Negative (Negative); Protein Urine Negative (Negative); Specific Gravity, Urine 1.012 (1.005-1.030); Urine Appearance Clear (CLEAR); Urine Color Yellow (Yellow); Urobilinogen Urine 0.2 mg/dL (Negative)
[2024-12-04 14:08] LABS: Alanine Aminotransferase 34 U/L (0-41); Albumin Level 4.3 g/dL (3.5-5.2); Alkaline Phosphatase 106 U/L (40-130); Anion Gap 14.5 (5-19); Aspartate Amino Transferase 32 U/L (0-40); Blood Urea Nitrogen 19 mg/dL (8-23); Calcium 9.7 mg/dL (8.5-10.5); Carbon Dioxide 25 mmol/L (22-29); Chloride 105 mmol/L (98-107); Creatinine Clr Calc Pharmacy 90.1643; Globulin 2.6 g/dL (1.3-4.6); Glucose 86 mg/dL (65-115); Osmolality Calculated 292 mOsm/kg (285-295); Potassium 4.5 mmol/L (3.5-5.1); Sodium 140 mmol/L (136-145); Total Bilirubin 1.5 mg/dL (0.15-1.2); Total Protein 6.9 g/dL (6.6-8.7)
[2024-12-04 14:08] LABS: Add Urine Microscopic? YES; Bacteria Urine None Seen /hpf; Hyaline Casts Urine 0-4 /lpf; RBC Urine 0-2 /hpf (0-2); Squamous Epithelial Cell Urine 0-5 /hpf (0-5); WBC Urine 0-5 /hpf (0-5)
--- NOTE | 2024-12-04 14:08 | W.ED.SYNCOPE ---
HPI - Syncope General: Chief Complaint: Syncope Stated Complaint: passed out, hit face when fell Time Seen by Provider: 12/04/24 13:13 History of Present Illness: 74-year-old male with history of lung cancer he is currently getting immunotherapy. He had a syncopal episode today after standing up. Loss consciousness for a brief period some mild discomfort on his face but no obvious deformity no lacerations or abrasions. He has had similar episodes in the past. He is not currently receiving any radiation or chemo but is getting immunotherapy. Associated symptoms: Deny abdominal pain, chest pain or fever(s) Related Data Home Medications ?Medication ?Instructions ?Recorded ?Confirmed aspirin 81 mg tablet,delayed 81 mg PO QAM 09/28/19 12/04/24 release (Adult Aspirin Regimen) cholecalciferol (vitamin D3) 25 25 mcg PO QAM 07/22/21 12/04/24 mcg (1,000 unit) capsule multivitamin 1 tab PO QAM 03/05/23 12/04/24 apixaban 5 mg tablet (Eliquis) 5 mg PO BID 10/18/24 12/04/24 levothyroxine 112 mcg tablet 112 mcg PO QAM 12/04/24 12/04/24 metoprolol tartrate 25 mg tablet 12.5 mg PO BID 12/04/24 12/04/24 pantoprazole 40 mg tablet,delayed 40 mg PO DAILY 12/04/24 12/04/24 release simvastatin 80 mg tablet 80 mg PO QPM 12/04/24 12/04/24 Previous Rx's ?Medication ?Instructions ?Recorded nitroglycerin 0.4 mg sublingual 0.4 mg sublingual Q5M PRN chest 07/18/24 tablet pain #25 tabs tamsulosin 0.4 mg capsule 0.8 mg (2 x 0.4 mg) PO BEDTIME #60 07/27/24 caps isosorbide mononitrate 30 mg 30 mg PO QAM #90 tabs 07/29/24 tablet,extended release 24 hr Allergies Allergy/AdvReac Type Severity Reaction Status Date / Time oxycodone Allergy Unknown head Verified 12/04/24 12:23 spinning hydrocodone Allergy ADR-Irritab Verified 12/04/24 12:23 le tramadol Allergy head Verified 12/04/24 12:23 spinning none Allergy Unknown Unknown Uncoded 12/04/24 12:23 Review of Systems Const: Denies: fever(s) or chills Card: Denies: chest pain Resp: Denies: dyspnea GI: Denies: abdominal pain : Denies: dysuria, urinary frequency or urinary urgency Musc: Denies: neck pain or back pain Skin/Breast: Denies: rash PFSH ED PFSH: 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 Pain management contract signed Stable angina Cervical spondylosis Erectile dysfunction Non-ST elevation MT (NSTEMI) CAD (coronary artery disease) 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 Surgical History History of cardiac cath CAD s/p stent to LAD and RCA in 2019 Hx of left inguinal hernia repair Family History Mother Dementia Hypertension CAD (coronary artery disease) Denies family history of Diabetes Clotting disorder Hyperlipidemia Psychiatric illness Chronic kidney disease (CKD) Suicide Anesthesia complication Bleeding disorder Family history of premature coronary artery disease Lung disease Cancer Stroke Social History Smoking and tobacco/nicotine status: former use of tobacco/nicotine Quit status (tobacco/nicotine): has quit using Year quit tobacco: 2019 Former quit date comment: 1 ppd X 50 years Alcohol intake: never Substance/Drug Use: never Marital status: Physical Exam Const: COMMON NORMALS: no acute distress GENERAL APPEARANCE: cooperative and comfortable ORIENTATION/CONSCIOUSNESS: Yes awake, Yes oriented to person, Yes oriented to place and Yes oriented to time HENMT: COMMON NORMALS: normocephalic, atraumatic (No facial injuries or scalp injuries noted no abrasions or laceration) and hearing grossly normal bilaterally HEAD & SCALP: normocephalic and atraumatic (No facial injuries or scalp injuries noted no abrasions or laceration) Resp: COMMON NORMALS: normal respiratory effort, No retractions, No use of accessory muscles and clear to auscultation bilaterally AUSCULTATION: clear to auscultation bilaterally Cardio: COMMON NORMALS: regular rate, regular rhythm and No murmurs present (Cardio) RATE: regular rate RHYTHM: regular rhythm GI: COMMON NORMALS: Soft to palpation and No hepatosplenomegaly present AUSCULTATION: Yes normoactive bowel sounds PALPATION: Yes Soft to palpation, No Tenderness to palpation present (GI), No Guarding due to palpation present (GI) and Yes No hepatosplenomegaly present Extremity: COMMON NORMALS: normal to inspection, capillary refill normal, no clubbing, cyanosis or edema, no calf tenderness and no pedal edema Neuro: SENSORIUM/ORIENTATION: Yes oriented to person, Yes oriented to place and Yes oriented to time Skin: COMMON NORMALS: no rashes or lesions noted GENERAL SKIN EXAM: no rashes or lesions noted Course Vital Signs: Vital signs: Vital Signs Temperature 97.9 F 12/04/24 12:13 Pulse Rate 74 12/04/24 15:35 Respiratory Rate 17 12/04/24 15:35 Blood Pressure 112/74 12/04/24 15:35 Pulse Oximetry 100 12/04/24 15:35 Oxygen Delivery Me thod Room Air 12/04/24 15:35 MDM - Syncope Medical Decision Making EKG does not show acute changes cardiac enzymes negative CT head negative. Suspect patient had postural hypotension. He is feeling much better now he is ambulated without difficulty will discharge home follow-up with his primary care doctor Medical Records I reviewed the patient's medical records. Lab Data I reviewed the patient's lab results. 12/04/24 13:33 12/04/24 13:33 Radiology Impressions Chest X-Ray 12/04/24 13:13 IMPRESSION: No acute findings. Severe hyperinflation/COPD. Head CT 12/04/24 15:56 IMPRESSION: No acute intracranial findings. Laboratory Results WBC 7.43 10^3/uL (3.29-11.43) 12/04/24 13:33 RBC 3.66 10^6/uL (3.85-5.65) L 12/04/24 13:33 Hgb 11.70 g/dL (11.27-16.99) 12/04/24 13:33 Hct 36.7 % (37-53) L 12/04/24 13:33 MCV 100.3 fl (82-101) 12/04/24 13:33 MCH 32.0 pg (27-33) 12/04/24 13:33 MCHC 31.9 g/dL (30-55) 12/04/24 13:33 RDW 14.9 % (12.1-15.1) 12/04/24 13:33 Plt Count 201 10^3/cmm (157-399) 12/04/24 13:33 MPV 9.3 fL (7.4-10.4) 12/04/24 13:33 Neut % (Auto) 49.3 % 12/04/24 13:33 Lymph % (Auto) 39.2 % 12/04/24 13:33 [place] % (Auto) 8.6 % 12/04/24 13:33 Eos % (Auto) 2.3 % 12/04/24 13:33 Baso % (Auto) 0.5 % 12/04/24 13:33 Neut # (Auto) 3.66 10^3/uL (1.8-7.7) 12/04/24 13:33 Lymph # (Auto) 2.9 10^3/uL (0.8-4.8) 12/04/24 13:33 [place] # (Auto) 0.6 10^3/uL (0.2-0.9) 12/04/24 13:33 Eos # (Auto) 0.2 10^3/uL (0.0-0.8) 12/04/24 13:33 Baso # (Auto) 0.0 10^3/uL (0.0-0.1) 12/04/24 13:33 Nucleated RBC % (auto) 0 % 12/04/24 13:33 Nucleated RBCs # 0.0 /100WBC 12/04/24 13:33 Sodium 140 mmol/L (136-145) 12/04/24 13:33 Potassium 4.5 mmol/L (3.5-5.1) 12/04/24 13:33 Chloride 105 mmol/L (98-107) 12/04/24 13:33 Carbon Dioxide 25 mmol/L (22-29) 12/04/24 13:33 Anion Gap 14.5 (5-19) 12/04/24 13:33 BUN 19 mg/dL (8-23) 12/04/24 13:33 Creatinine 0.8 mg/dL (0.7-1.2) 12/04/24 13:33 GFR Calculation Not Reportable 12/04/24 13:33 Glucose 86 mg/dL (65-115) 12/04/24 13:33 Calculated Osmolality 292 mOsm/kg (285-295) 12/04/24 13:33 Calcium 9.7 mg/dL (8.5-10.5) 12/04/24 13:33 Total Bilirubin 1.5 mg/dL (0.15-1.2) H 12/04/24 13:33 AST 32 U/L (0-40) 12/04/24 13:33 ALT 34 U/L (0-41) 12/04/24 13:33 Alkaline Phosphatase 106 U/L (40-130) 12/04/24 13:33 Troponin T Baseline 9 ng/L (0-15) 12/04/24 13:33 Troponin T 120 Minute 9.61 ng/L (0-15) 12/04/24 15:05 Delta Troponin T 0.61 ABS# (0-10) 12/04/24 15:05 Total Protein 6.9 g/dL (6.6-8.7) 12/04/24 13:33 Albumin 4.3 g/dL (3.5-5.2) 12/04/24 13:33 Globulin 2.6 g/dL (1.3-4.6) 12/04/24 13:33 Urine Color Yellow (Yellow) 12/04/24 14:00 Urine Appearance Clear (CLEAR) 12/04/24 14:00 Urine pH 5.0 (5-7) 12/04/24 14:00 Ur Specific [place] 1.012 (1.005-1.030) 12/04/24 14:00 Urine Protein Negative (Negative) 12/04/24 14:00 Urine Glucose (UA) Negative (Normal) 12/04/24 14:00 Urine Ketones Negative (Negative) 12/04/24 14:00 Urine Blood Negative (Negative) 12/04/24 14:00 Urine Nitrate Negative (Negative) 12/04/24 14:00 Urine Bilirubin Negative (Negative) 12/04/24 14:00 Urine Urobilinogen 0.2 mg/dL (Negative) 12/04/24 14:00 Ur Leukocyte Esterase Negative (Negative) 12/04/24 14:00 Urine RBC 0-2 /hpf (0-2) 12/04/24 14:00 Urine WBC 0-5 /hpf (0-5) 12/04/24 14:00 Ur Squamous Epith Cells 0-5 /hpf (0-5) 12/04/24 14:00 Amorphous Sediment Not Reportable 12/04/24 14:00 Urine Bacteria None seen /hpf (NONE) 12/04/24 14:00 Hyaline Casts 0-4 /lpf H 12/04/24 14:00 All radiology interpretation(s) finalized by discharge Discharge Plan Discharge Patient Disposition: Home Clinical Impression: Syncope due to orthostatic hypotension Condition: Stable Prescriptions: No Action cholecalciferol (vitamin D3) 25 mcg (1,000 unit) capsule 25 mcg PO QAM aspirin [Adult Aspirin Regimen] 81 mg tablet,delayed release (DR/EC) 81 mg PO QAM nitroglycerin 0.4 mg tablet, sublingual 0.4 mg sublingual Q5M PRN (Reason: chest pain) Qty: 25 3RF Rx Instructions: do not exceed 3 doses per episode Eliquis 5 mg tablet 5 mg PO BID isosorbide mononitrate 30 mg tablet extended release 24 hr 30 mg PO QAM Qty: 90 3RF pantoprazole 40 mg tablet,delayed release (DR/EC) 40 mg PO DAILY levothyroxine 112 mcg tablet 112 mcg PO QAM simvastatin 80 mg tablet 80 mg PO QPM metoprolol tartrate 25 mg tablet 12.5 mg PO BID multivitamin Tablet 1 tab PO QAM tamsulosin 0.4 mg capsule 0.8 mg PO BEDTIME Qty: 60 0RF Discharge Orders: Discharge ED (Routine); Ordered 12/04/24 Ordered By: Yfn Tenorio Referrals: Phil Baker MD [Primary Care Provider] - Discharge Diet: Usual diet Discharge Activity: Increase activity as tolerated Patient Instructions: Opioid Safety, Pain Management Activity Restrictions/Additional Instructions: Thank you for choosing [facility] for your healthcare needs today. It is very important that you follow up as instructed or that you return to the Emergency Department should you have concerns or if your condition changes or worsens in any way. You are seen today after a near syncopal episode. Your laboratory test including EKG cardiac enzymes CT of your head were all negative. Suspect the episode you had today was from your blood pressure decreasing your first set up when we did orthostatics on you (blood pressures laying sitting and standing) you did not have a decrease after the fluids were given. Discharge home continue current medications recheck in 1 week with your doctor Print Language: Kyrgyz Coding Level of Care Code ED Computer Laboratory Technician for Wilian Velazquze
[2024-12-04 14:09] LABS: Troponin(5th) Baseline 9 ng/L (0-15)
[2024-12-04 15:17] VITALS: BP 120/82; BP 129/74; PULSE 75; PULSE 80
--- NOTE | 2024-12-04 15:18 | PC.NURSE ---
Pt ambulated for orthostatic BP: sitting standing walking HR 75 80 90 BP 120/82 129/74 110/[address]2 sats [address] Chavez informed of results.
[2024-12-04 15:32] LABS: Troponin 5 2HR 9.61 ng/L (0-15); Troponin 5 2HR Delta 0.61 ABS# (0-10)
[2024-12-04 15:35] VITALS: BP 112/74; PULSE 74; RESP 17; O2SAT 100
--- NOTE | 2024-12-04 15:56 | CTR_ITS ---
PROCEDURE INFORMATION: Exam: CT Head Without Contrast Exam date and time: 12/04/2024 4:06 PM Age: 74 years old Clinical indication: Injury or trauma; Fall; Blunt trauma (contusions or hematomas); Additional info: Syncope/fall - on anticoagulants TECHNIQUE: Imaging protocol: Computed tomography of the head without contrast. Radiation optimization: All CT scans at this facility use at least one of these dose optimization techniques: automated exposure control; mA and/or kV adjustment per patient size (includes targeted exams where dose is matched to clinical indication); or iterative reconstruction. COMPARISON: CT head wo con* [id number] 03/15/2024 7:15 AM RADIATION DOSE METRICS: Total DLP (mGy-cm): 1029.88 FINDINGS: Brain: No intracranial hemorrhage. There is global parenchymal volume loss. Periventricular white matter hypoattenuation is nonspecific but most likely due to small vessel disease. No evidence of acute territorial infarct or cerebral edema. No mass effect or midline shift. Cerebral ventricles: Prominent ventricles likely secondary to volume loss. Paranasal sinuses: Visualized sinuses are unremarkable. No fluid levels. Mastoid air cells: Visualized mastoid air cells are well aerated. Bones: Unremarkable. No acute fracture. Soft tissues: Unremarkable. CT/CT head wo con* [id number] IMPRESSION: No acute intracranial findings.
[2024-12-04 16:52] VITALS: BP 112/62; PULSE 75; O2SAT 98
== END 2024-12-04 16:53 | disposition home or self-care (01) ==
PROVIDERS: Emergency Provider Family Medicine; PCP Family Medicine
DX: I95.1 Orthostatic hypotension (principal); Z79.82 Long term (current) use of aspirin; Z79.01 Long term (current) use of anticoagulants; Z87.891 Personal history of nicotine dependence; E78.5 Hyperlipidemia, unspecified; I25.10 Atherosclerotic heart disease of native coronary artery without angina pectoris
CPT/HCPCS: 36415; 70450; 71045; 80053; 81001; 84484; 85025; 93005; 99285; J7030

== ENCOUNTER 2025-03-10 08:19 | Outpatient (CLI) | payer MEDICARE, SELFPAY ==
[2025-03-10 09:44] LABS: Cholesterol 247 mg/dL (0-200); HDL Cholesterol 38 mg/dL (60-100); Triglycerides 232 mg/dL (0-150)
== END 2025-03-10 08:20 | disposition home or self-care (01) ==
LOC: LAB 08:20
PROVIDERS: PCP Family Medicine; Visit Provider Internal Medicine Cardiovascular Disease
DX: E78.5 Hyperlipidemia, unspecified (principal)
CPT/HCPCS: 36415; 80061

== ENCOUNTER → 2025-05-01 10:31 | Outpatient (BNVA) | payer MEDICARE, SELFPAY | PROVIDERS: PCP Family Medicine; Visit Provider Internal Medicine Cardiovascular Disease | DX: I25.10 Atherosclerotic heart disease of native coronary artery without angina pectoris (principal); E78.5 Hyperlipidemia, unspecified; I34.0 Nonrheumatic mitral (valve) insufficiency; I10 Essential (primary) hypertension; C34.2 Malignant neoplasm of middle lobe, bronchus or lung; Z86.718 Personal history of other venous thrombosis and embolism; Z79.01 Long term (current) use of anticoagulants; Z79.82 Long term (current) use of aspirin; Z87.891 Personal history of nicotine dependence; I25.2 Old myocardial infarction | CPT/HCPCS: 99214 ==